=== PATIENT | male | born 1945 | race Caucasian/White ===

== ENCOUNTER 2017-09-21 08:36 | Day surgery (SDC) | payer MEDICARE, OTHER, SELFPAY ==
[2017-09-21 09:24] VITALS: BP 143/74; PULSE 54; RESP 16; TEMP 36; O2SAT 99; BMI 33.7
[2017-09-21] MEDS: SODIUM CHLORIDE 0.9% 1,000 ML 70 ML IV (09:30)
--- NOTE | 2017-09-21 10:32 | P.HP_ITS ---
History of Present Illness Date Patient Seen: 09/21/17 Time Patient Seen: 10:30 Chief complaint: colonoscopy w/biopsy [id number] Narrative: The patient is a 72-year-old male who is here for colon cancer screening. The patient is at average risk. He had a colonoscopy performed 10 years ago which was unrevealing. He currently has no alarm symptoms or active GI symptoms. There is no family history of colon cancer Patient History Family & Social History Social History: household members spouse Meds Home Medications Medication Instructions Recorded Confirmed Type aspirin 81 mg DAILY 09/21/17 09/21/17 History glipizide 2.5 mg DAILY 09/21/17 09/21/17 History hydrochlorothiazide 25 mg DAILY 09/21/17 09/21/17 History hydrocodone-acetaminophen [[place]] 1 tab PO Q4HP PRN 09/21/17 09/21/17 History lisinopril 20 mg DAILY 09/21/17 09/21/17 History metformin 1,000 mg BID 09/21/17 09/21/17 History metoprolol succinate 50 mg DAILY 09/21/17 09/21/17 History pantoprazole 40 mg DAILY 09/21/17 09/21/17 History simvastatin 20 mg DAILY 09/21/17 09/21/17 History Allergies Allergy/AdvReac Type Severity Reaction Status Date / Time Penicillins [PENICILLINS] Allergy Severe Swelling Verified 09/21/17 09:15 of the Eye atorvastatin [From Lipitor] AdvReac Mild Nausea Verified 09/21/17 09:16 Review of Systems Review of Systems All systems reviewed & are unremarkable except as noted in HPI and below Exam Vital Signs (past 8 hours): - 09/21/17 09:24 Temperature 96.8 F L Pulse Rate 54 L Respiratory Rate 16 Blood Pressure 143/74 H Pulse Oximetry 99 Oxygen Delivery Method Room Air Narrative Exam Narrative: General: Patient is obese, not in apparent distress Cardiovascular: Regular rate and rhythm, no murmurs, rubs, or gallops; no evidence of edema; no palpable abdominal aortic aneurysm Gastrointestinal: Normoactive bowel sounds, soft, nontender, nondistended, no rebound tenderness, no hepatosplenomegaly, no evidence of hernia Assessment & Plan Plan: Assessment/Plan Narrative: 72-year-old male who is here for colon cancer screening. He has no active GI issues at present. Prior colonoscopy 10 years ago which was unrevealing Regarding the procedure(s), the risks and potential complications, benefits, and alternatives (including not doing the procedure) were discussed with the patient. The risks include but are not limited to bleeding, infection, perforation which may require surgical intervention, missed lesions, and adverse reactions to sedative medicines. After a question and answer period, the patient agreed to proceed with the procedure(s).
--- NOTE | 2017-09-21 10:32 | PM.OP.ENDO ---
Operative Date/Time/Diagnoses Date of procedure: 09/21/17 Time of procedure: 10:32 Procedure Notes Procedure in detail: Surgeon: Garett Lewis MD Procedure: Colonoscopy; incomplete due to poor prep Preoperative diagnosis: Colon cancer screening Postoperative diagnosis: Aborted colonoscopy due to poor prep Medications: Conscious sedation using 4 mg IV of Midazolam and 100 mcg IV of Fentanyl Preanesthesia Assessment An H and P was performed/updated and the Px?s ASA class is 2. The procedure was discussed in detail with the patient. The potential risks and complications including infection, bleeding, missed lesions, perforation, need for surgery in case of perforation, prolonged hospital stay, and were explained. A brief question and answer period was allotted and once all questions were answered, informed consent was obtained. The patient was brought back to the procedure room and placed on standard monitoring. The patient?s vital signs were monitored continuously throughout the entire procedure. Prior to starting, a timeout was performed to confirm the patient?s identity, allergies, medications, and procedure. Procedure in detail The patient was placed in left lateral decubitus position and once adequate sedation was obtained a CAESAR was performed. The digital rectal exam did not reveal any palpable lesions. The tip of the colonoscope was placed in the anal canal. In the rectum there was a large amount of liquid stool which precluded adequate evaluation of the mucosa. The scope was advanced all the way to the sigmoid colon and the procedure was then aborted due to the large amount of liquid stool which could not be washed. The patient tolerated the procedure well and will be brought back to the recovery area to be discharged once criteria are met. The prep was poor and inadequate. The total procedure time from initial sedation was 7 min. Complications There were no complications and estimated blood loss was zero. Recommendations: Reschedule for colonoscopy; patient will likely need antiemetics or modified prep Resume previous diet Continue outPx medications An emergency contact number was given to the patient for any complications related to the procedure
--- NOTE | 2017-09-21 10:34 | P.DS_ITS ---
History of Present Illness Chief complaint: colonoscopy w/biopsy [id number] Narrative: The patient is a 72-year-old male who is here for colon cancer screening. The patient is at average risk. He had a colonoscopy performed 10 years ago which was unrevealing. He currently has no alarm symptoms or active GI symptoms. There is no family history of colon cancer Discharge Providers Primary care physician: Espinoza Gomez MD Discharge provider: Garett Lewis MD Exam Vital Signs (past 8 hours): - 09/21/17 09:24 Temperature 96.8 F L Pulse Rate 54 L Respiratory Rate 16 Blood Pressure 143/74 H Pulse Oximetry 99 Oxygen Delivery Method Room Air Narrative Exam Narrative: General: Patient is obese, not in apparent distress Cardiovascular: Regular rate and rhythm, no murmurs, rubs, or gallops; no evidence of edema; no palpable abdominal aortic aneurysm Gastrointestinal: Normoactive bowel sounds, soft, nontender, nondistended, no rebound tenderness, no hepatosplenomegaly, no evidence of hernia Discharge Plan Discharge Plan Patient Disposition: Home, Self-Care Discharge comment: Remove IV prior to discharge Discharge to home once criteria are met (positive flatus, stable vital signs, no abdominal pain, tolerating p.o.) Discharge Med Rec/Prescriptions Prescriptions: Continue aspirin 81 mg 81 mg DAILY RF: 0 glipizide 2.5 mg 2.5 mg DAILY RF: 0 hydrochlorothiazide 25 mg 25 mg DAILY RF: 0 lisinopril 20 mg 20 mg DAILY RF: 0 metformin 1,000 mg 1,000 mg BID RF: 0 metoprolol succinate 50 mg 50 mg DAILY RF: 0 pantoprazole 40 mg 40 mg DAILY RF: 0 simvastatin 20 mg 20 mg DAILY RF: 0 hydrocodone-acetaminophen [[place]] 5 MG/325 MG tablet 1 tab PO Q4HP PRN (Reason: Pain (Scale Score 1-3)) RF: 0 Discharge Orders: Discharge (Order); Ordered 09/21/17 Ordered By: Garett Lewis Provider Discharge Instructions Diet: Diet as Tolerated Visit Report/Discharge Packet Stand Alone Forms: Colonoscopy Result, Surgery Discharge Discharge Data Primary Care Provider: Espinoza Gomez Attending Provider: Garett Lewis
[2017-09-21] MEDS: MIDAZOLAM 5 MG/5 ML VIAL IV (10:48)
[2017-09-21 10:49] VITALS: BP 121/74; PULSE 48; RESP 16; TEMP 36.8; O2SAT 93
[2017-09-21] MEDS: fentaNYL 250 MCG/5 ML INJ IV (10:49)
[2017-09-21 10:54] VITALS: BP 116/62; PULSE 50; RESP 16; O2SAT 95
[2017-09-21 10:59] VITALS: BP 121/77; PULSE 50; RESP 18; O2SAT 95
[2017-09-21 11:05] VITALS: BP 124/74; PULSE 49; RESP 14; TEMP 36.6; O2SAT 95
[2017-09-21 11:19] VITALS: BP 117/70; PULSE 48; RESP 18; TEMP 36.7; O2SAT 96
== END 2017-09-21 11:27 | disposition home or self-care (01) ==
PROVIDERS: PCP Family Medicine; Visit Provider Internal Medicine Gastroenterology
PROC: 0DJD8ZZ Inspection of Lower Intestinal Tract, Via Natural or Artificial Opening Endoscopic (ICD-10-PCS; CPT 45378; principal; 2017-09-21 10:30)
DX: Z12.11 Encounter for screening for malignant neoplasm of colon (principal); Z53.09 Procedure and treatment not carried out because of other contraindication
CPT/HCPCS: G0104; J2250; J3010

== ENCOUNTER 2017-10-05 10:14 | Day surgery (SDC) | payer MEDICARE, OTHER, SELFPAY ==
--- NOTE | 2017-10-05 | PATH_ITS ---
[facility] Accession Number: [id number] . 01 Material submitted: . RECTAL POLYP . 02 Diagnosis: Rectal Polyp: Hyperplastic polyp. MRV/10/06/2017 . 02 Electronically signed: . Daniel Palafox MD, PhD, Pathologist NPI- [id number] . 01 Gross description: . Received one formalin-filled container labeled with the patient's name and labeled rectal polyp. The specimen consists of a 0.3 cm portion of tissue, entirely submitted in one cassette. (DC:[id number]) /FRR . 02 Pathologist provided ICD-10: K62.1 . 02 CPT . 856292 Performed at: 01 [facility] [address] [place] [address], [place], [place] [id number] MD Ryan Auguste MD Phone: [phone] Performed at: [address] [facility] [address] [place], [place] [id number] MD Max Ross MD Phone: [phone]
[2017-10-05 10:28] VITALS: BP 146/86; PULSE 75; RESP 16; TEMP 36.4; O2SAT 100; BMI 33.7
[2017-10-05] MEDS: SODIUM CHLORIDE 0.9% 1,000 ML 42 ML IV (10:36)
--- NOTE | 2017-10-05 11:04 | PM.HP.1 ---
History of Present Illness Date Patient Seen: 10/05/17 Time Patient Seen: 11:05 Chief complaint: colonoscopy w/biopsy [id number] Narrative: Screening - NOS Patient History Medical History Diabetes mellitus (Acute) GE reflux (Acute) Hypercholesterolemia (Acute) Hypertension (Acute) Family & Social History Social History: household members spouse Meds Home Medications Medication Instructions Recorded Confirmed Type aspirin 81 mg DAILY 09/21/17 09/21/17 History glipizide 2.5 mg DAILY 09/21/17 09/21/17 History hydrochlorothiazide 25 mg DAILY 09/21/17 09/21/17 History hydrocodone-acetaminophen [[place]] 1 tab PO Q4HP PRN 09/21/17 09/21/17 History lisinopril 20 mg DAILY 09/21/17 09/21/17 History metformin 1,000 mg BID 09/21/17 10/05/17 History metoprolol succinate 50 mg DAILY 09/21/17 09/21/17 History pantoprazole 40 mg DAILY 09/21/17 09/21/17 History simvastatin 20 mg DAILY 09/21/17 09/21/17 History Allergies Allergy/AdvReac Type Severity Reaction Status Date / Time Penicillins [PENICILLINS] Allergy Severe Swelling Verified 10/05/17 10:26 of the Eye atorvastatin [From Lipitor] AdvReac Mild Nausea Verified 10/05/17 10:26 Exam Vital Signs (past 8 hours): - 10/05/17 10:28 Temperature 97.6 F Pulse Rate 75 Respiratory Rate 16 Blood Pressure 146/86 H Pulse Oximetry 100 Oxygen Delivery Method Room Air Narrative Exam Narrative: Oropharynx free of lesions Chest clear to auscultation percussion Cardiac exam reveals no S3 or murmur Assessment & Plan Plan: Assessment/Plan Narrative: Plan is for colonoscopy for screening purposes.
[2017-10-05] MEDS: MIDAZOLAM 5 MG/5 ML VIAL IV (11:36)
[2017-10-05] MEDS: fentaNYL 250 MCG/5 ML INJ IV (11:36)
--- NOTE | 2017-10-05 11:44 | PM.OP.ENDO ---
Operative Date/Time/Diagnoses Date of procedure: 10/05/17 Time of procedure: 11:44 Pre-op diagnosis: See indication and findings Post-op diagnosis: same Procedure & Clinicians Study performed: Colonoscopy Same procedure as scheduled: Yes Indications: Screening Surgeon: Almaz Garcia Procedure Notes Procedure in detail: After informed consent was obtained the patient was placed in left lateral decubitus position. Video colonoscope was introduced through rectum and slowly advanced to the cecum. Colon was excessively long and tortuous but eventually the cecum was reached. The preparation was fair before extensive washing but after washing was actually quite good. On slow withdrawal mucosa was carefully examined. The scope was removed. The patient tolerated the procedure well. Blood loss none Complications none Sedation Fentanyl 100 mcg Versed 9 mg IV titration Total sedation time 38 min Findings 1. Extensive sigmoid and left-sided diverticulosis. 2. 5 mm polyp in the distal rectum cold biopsied with Jumbo biopsy forceps and removed completely. 3. Otherwise negative colonoscopy to cecum We will send the biopsy results to the patient. Pending the biopsy results will need follow up in 5 or 10 years.
[2017-10-05 11:48] VITALS: BP 128/81; PULSE 67; RESP 11; TEMP 36.6; O2SAT 96
[2017-10-05 11:55] VITALS: BP 157/88; PULSE 71; RESP 15; O2SAT 95
--- NOTE | 2017-10-05 12:31 | SUR.PHASEII ---
Abd distended, soft. Denied flatus. Denied pain.
== END 2017-10-05 12:30 | disposition home or self-care (01) ==
PROVIDERS: Internal Medicine Gastroenterology; PCP Family Medicine; Visit Provider Internal Medicine Gastroenterology
PROC: 0DJD8ZZ Inspection of Lower Intestinal Tract, Via Natural or Artificial Opening Endoscopic (ICD-10-PCS; CPT 45378; principal; 2017-10-05 14:30)
DX: Z12.11 Encounter for screening for malignant neoplasm of colon (principal); K57.30 Diverticulosis of large intestine without perforation or abscess without bleeding; E11.9 Type 2 diabetes mellitus without complications; K21.9 Gastro-esophageal reflux disease without esophagitis; E78.00 Pure hypercholesterolemia, unspecified; I10 Essential (primary) hypertension; Z79.84 Long term (current) use of oral hypoglycemic drugs; K62.1 Rectal polyp
CPT/HCPCS: 45380; J2250; J3010

== ENCOUNTER → 2018-04-17 15:17 | Outpatient (CLI) | payer MEDICARE, OTHER, SELFPAY ==
--- NOTE | 2018-04-17 15:20 | DI.MRI.S_ITS ---
PROCEDURE: MR LUMBAR SPINE WO CON INDICATIONS: LUMBAR SPINE PAIN TECHNIQUE: Noncontrast sagittal T1 spin echo and T2 fast echo, sagittal STIR, axial T1 and T2 fast spin echo through the lumbar spine. In cases with scoliosis, additional coronal T2 fast spin echo may be performed. COMPARISON: [facility], MR, L-SPINE WITHOUT CONTRAST, 06/18/2013, 19:35. FINDINGS: Image quality: Excellent. Alignment and Curvature: There is normal bony alignment. Bone Marrow: Marrow is of normal overall signal. No acute vertebral body compression fractures. Decrease intervertebral disc space and degenerative endplate changes are noted throughout lumbar spine. Spinal Cord: Conus medullaris terminates at the T12 level. Visualized cord demonstrates normal signal and size. Paraspinous Soft Tissues: No paravertebral masses. 4.8 x 5.1 cm possible cyst is seen in the upper pole of right kidney. Additional bilateral renal cysts are also likely present. T12-L1: There is broad-based disc bulge and bilateral facet arthrosis with mild to moderate central canal stenosis and mild bilateral neuroforamina narrowing. L1-L2: There is broad-based disc bulge and bilateral facet arthrosis causing mild central canal stenosis and bilateral neuroforaminal narrowing. L2-L3: There is broad-based disc bulge and bilateral facet arthrosis causing moderate central canal stenosis and left worse than right bilateral neuroforaminal narrowing. Bulging disc is seen contacting exiting left L2 nerve root. L3-L4: There is broad-based disc bulge and bilateral facet arthrosis with hypertrophy of ligamentum flavum. Moderate central canal stenosis and left worse than right bilateral neuroforaminal narrowing is seen. Bulging disc is seen contacting bilateral L3 and L4 nerve roots. L4-L5: Broad-based disc bulge and bilateral facet arthrosis is seen with moderate central canal stenosis and [id number] bilateral neuroforaminal narrowing. Bulging disc is seen contacting bilateral L4 and L5 no roots. L5-S1: Diffuse disc bulge and bilateral facet arthrosis is seen with mild central canal stenosis and mild bilateral neuroforaminal narrowing. IMPRESSION: 1. Degenerative disc bulge and bilateral facet arthrosis throughout lumbar spine causing mild to moderate central canal stenosis and bilateral neuroforaminal narrowing more prominent at L3-4 and L4-5 levels as described above. 2. No marrow edema. No compression fracture or spondylolisthesis. 3. Suggestion of bilateral renal cysts. No hydronephrosis. Dictated by: Zen Wright M.D. on 04/17/2018 at 16:04 Approved by: Zen Wright M.D. on 04/17/2018 at 16:08
== END ==
PROVIDERS: PCP Family Medicine; Visit Provider Orthopaedic Surgery Orthopaedic Surgery of the Spine
DX: M54.5 Low back pain (principal); M51.36 Other intervertebral disc degeneration, lumbar region; M51.37 Other intervertebral disc degeneration, lumbosacral region; M48.061 Spinal stenosis, lumbar region without neurogenic claudication; M48.07 Spinal stenosis, lumbosacral region; M47.816 Spondylosis without myelopathy or radiculopathy, lumbar region; M47.817 Spondylosis without myelopathy or radiculopathy, lumbosacral region
CPT/HCPCS: 72148

== ENCOUNTER → 2018-06-13 10:04 | Outpatient (CLI) | payer MEDICARE, OTHER, SELFPAY ==
[2018-06-13 12:22] LABS: Hematocrit 44.7 % (41-53); Hemoglobin 14.5 g/dL (13.5-17.5); Mean Corpuscular HGB Conc 32.5 % (30-36); Mean Corpuscular Hemoglobin 29.2 PG (26-34); Mean Corpuscular Volume 89.9 fL (80-100); Platelet Count 221 X10^3/uL (150-400); Red Blood Cell Count 4.98 X10^6/uL (4.5-5.9); Red Cell Distribution Width 14.4 % (11.6-14.8); White Blood Cell Count 8.7 X10^3/uL (4.5-11.0)
[2018-06-13 12:23] LABS: Hemoglobin A1C% w Est Avg Glu 6.9 % (4.0-6.0)
[2018-06-13 13:11] LABS: BUN Creatinine Ratio 16.2 (6-22); Blood Urea Nitrogen 21 mg/dL (9-20); Calcium 9.4 mg/dL (8.4-10.2); Carbon Dioxide 29 mmol/L (22-32); Chloride 99 mmol/L (98-107); Estimated Glomerular Filt Rate 54.6 mL/min (>60); Glucose 99 mg/dL (80-110); HEMOLYSIS < 15 (0-50); Potassium 4.2 mmol/L (3.4-5.1); Sodium 139 mmol/L (137-145)
== END ==
PROVIDERS: PCP Family Medicine; Visit Provider Orthopaedic Surgery Orthopaedic Surgery of the Spine
DX: R73.9 Hyperglycemia, unspecified (principal); Z01.818 Encounter for other preprocedural examination
CPT/HCPCS: 36415; 80048; 83036; 85027; 93005

== ENCOUNTER 2018-09-20 05:23 | Inpatient (IN) | payer MEDICARE, OTHER, SELFPAY ==
[2018-07-18 09:50] VITALS: BMI 35.6
[2018-09-20] VITALS (16 sets, daily range): BP systolic 101–154; BP diastolic 66–99; PULSE 48–449; RESP 8–98; TEMP 36.1–37.1; O2SAT 11–99; BMI 35.6
--- NOTE | 2018-09-20 | DI.RAD.S_ITS ---
PROCEDURE: XR LUMBAR SPINE 2-3V INDICATIONS: TLIF L4-5 L5-S1 TECHNIQUE: 2 views of the lumbar spine were acquired. COMPARISON: None. FINDINGS: Bones: 5 [id number] vertebrae are present. There is normal bony alignment. No vertebral body compression fractures. No suspicious bony lesions. There has been fusion by transverse pedicle screws and vertical fixation rods between L4-S1, with interbody disc cage prosthesis devices at the intervening 2 disc levels. Soft tissues: Overlying bowel gas pattern is normal. No suspicious soft tissue calcifications. IMPRESSION: Normal alignment established by posterior fusion and interbody disc cage prosthesis devices as discussed. Dictated by: Aleks Stockton M.D. on 09/20/2018 at 16:32 Approved by: Aleks tSockton M.D. on 09/20/2018 at 16:33
[2018-09-20] MEDS: LACTATED RINGERS 1,000 ML 42 ML IV ×2 (06:45→11:07)
--- NOTE | 2018-09-20 07:40 | PM.PREOP ---
Pre-operative Note Interval Note History & Physical reviewed/Exam performed by Physician: Yes Changes to H&P: No
[2018-09-20] MEDS: CLINDAMYCIN 900 MG/50 ML PIGGYBACK 50 MG IV ×2 (07:49→16:41)
--- NOTE | 2018-09-20 08:37 | SUR.OPER ---
Prone on spine table, head in foam head support, padded chest and pelvic supports, gel pad at knees, lower legs supported by pillows; nipples, genitalia and toes free of pressure, arms secured on foam padded arm boards at <90 degrees abduction. Tape over blanket at thigh secured to table.
[2018-09-20] MEDS: BUPIVACAINE LIPOSOME 266 MG/20 ML VIAL INJ (08:48)
[2018-09-20] MEDS: BUPIVACAINE 0.25% W/ EPI 30 ML VIAL INJ (08:49)
--- NOTE | 2018-09-20 11:43 | P.OP_ITS ---
Operative Date/Time/Diagnoses Date of procedure: 09/20/18 Time of procedure: 08:10 Pre-op diagnosis: 1. L4-5, L5-S1 spinal stenosis 2. L4-5, L5-S1 spondylosis with radiculopathy 3. Hx of Lumbar microdiscectomy with epidural scarring Procedure & Clinicians Procedure: 1. L4-5, L5-S1 Postero-lateral and posterior interbody fusion 2. L4-5, L5-S1 interbody cage placement. 3. L4-5, L5-S1 decompressive laminectomy with bilateral facetecomies 4. L4-5, L5-S1 Posterior segmental instrumentation 5. [place] of bone marrow from iliac crest 6. Utilization of microsurgical technique and operating microscope Same procedure as scheduled: Yes Indications: Patient has been having chronic back pain and worsening lumbar radiculopathy. Patient failed multiple conservative management with worsening pain weakness and numbness in her lower extremity. Patient has been having difficulty performing activity of daily living. After discussing risks benefits of treatment options, patient elected proceed with surgery. Surgeon: Teresa Hayes Outside Machinist: Jessica Saeed Click Yes if Unassisted: No Anesthesia Type: General Operative Notes Closure Type: primary Specimen(s): none sent Prosthetic devices, grafts, tissues, transplants, or devices: Globus revolve scrwes, Rise cages Applied: catheter Estimated Blood Loss (mL): 100 Blood products transfused: none Procedure in detail: Patient was seen in the preoperative area. Risks and benefits of the surgery was discussed with the patient. Informed consent was obtained from the patient and placed in the chart. Surgical site was marked. Patient was taken to the operative room. General anesthesia was administered. Prophylactic antibiotic was given to the patient less than 30 min before the incision was made. Patient was placed into a prone position on the Micah table. Patient's back was then prepped and draped in the sterile fashion. Time- out was performed at this time. Using AP and lateral C-arm imaging the interval between L4-S1 was identified and marked on patient's back. A 2 inch incision 2 in from midline was made on the right side first. The fascia was incised in line with skin incision. Globus MARS retractors was placed inside the incision and docked onto the L4 and L5 lamina. Using microsurgical technique and operating microscope, a L4 and L5 laminectomy and L4-5 L5-S1 facetectomy was performed using a Kerrison rongeur. During the process of decompression more than 75% of bilateral L4-5 L5-S1 facets were removed in order to decompress the spinal canal and the lateral recess. The L4-5 L5-S1 level was grossly unstable after the decompression was completed and requiring the fusion procedure. The disc space at L4-5, L5-S1 was identified. And a total diskectomy was performed at L4-5, L5-S1 level. The endplates were decorticated using a rasp and shaver. The total diskectomy and decortication was performed at L4-5, L5-S1 level in order to to accomplish a L4- 5, L5-S1 fusion. The local bone from the laminectomy and facetectomy was saved for local bone grafting. After the total diskectomy and decortication was completed, Bio4 bone graft material was combined with local bone that was harvested earlier. At this time, a separate skin is incision was made over the iliac crest. A Jamshidi needle was inserted into the iliac crest through a separate skin incision. 5 cc of bone marrow aspiration was obtained through the separate skin incision using a Jamshidi needle from the iliac crest. The bone marrow aspiration was combined with local bone and the Bio4 bone grafting material. The bone grafting material was placed into the L4-5, L5-S1 interbody space along with two cages, one expandable cage at each level. The cages were expanded to their maximum height using the torque limiting screwdriver. At this time a mirror image incision was made on the left side. The fascia was incised in line with the skin incision. Globus MARS retractor was inserted and docked onto the L4-5, L5-S1 posterolateral gutter. Using the power drill, posterior-lateral decortication was performed at L4-5, L5-S1 level until bleeding cortical bone was identified. The remaining bone grafting material was placed into the L4-5 L5-S1 posterior lateral gutter he order to accomplish posterolateral fusion at the L4-5 L5-S1 levels. Using the double C-arm technique, pedicle screws were placed into the L4, L5, S1 pedicles bilaterally. This was done by placing the Jamshidi needle into the pedicles, then placing the guidewires over the Jamshidi needle, and finally placing the cannulated screws over the guidewires bilaterally. After the pedicle screws were placed, 2 titanium rods was locked into the heads of the pedicle screws using locking caps and torque limiting screwdriver. Total 6 pedicles screws were placed. After all the hardware was placed, and confirmed with AP and lateral C-arm imaging, the wound was then irrigated with sterile normal saline and packed with Ray-Kyler gauze for 3 min to accomplish hemostasis. After the gauze was removed the deep fascia was closed with #1 Vicryl suture. The subcutaneous layer was closed with 2-0 Vicryl. The skin was closed with skin angella. Patient tolerated the procedure well. There were no complications. Complications: none Condition: stable Disposition: PACU Plan for aftercare: Admit to inpatient hospital
[2018-09-20] MEDS: fentaNYL 100 MCG/2 ML INJ 50 MCG IV ×2 (11:45→11:53)
[2018-09-20] MEDS: HYDROMORPHONE 2 MG INJ 0.5 MG IV ×4 (11:45→12:13)
[2018-09-20] MEDS: hydrOXYzine 50 MG/ML INJ IM (11:46)
[2018-09-20] MEDS: LORazepam 2 MG/ML INJ 0.5 MG IV (12:38)
--- NOTE | 2018-09-20 14:06 | CM.DANOTE ---
DCP: Case received, EMR reviewed and met with patient. Introduced self and role. Baseline health history obtained from spouse, Maeve. DCP template assessment completed with information currently available. Patient is a 73 year old male who admitted early this morning to the care of the orthopedic team. PCP: Dr. Gomez. Payer: confirmed: Medicare/[employer]. Patient came to the hospital for a surgical procedure. He had L4-5, L5-S1 Laminectomy. Patient has had surgery planned since July, according to patient's spouse, but had to put off his surgery since Maeve's mother . was speaking for patient, for he is sleeping, and wears a CPAP machine. Thania Carpio, nurse, is also obtaining information from . Patient has had history of chronic back pain secondary to osteoarthritis of his spine. According to Maeve, she stated that he is very active, he just mowed the lawn a couple of days ago. He uses no DME supplies, but stated, she has a walker at home that he can use, which belongs to her, since she has had history of back surgery. mentioned that they have a daughter that lives in [place], [place], and a son, which will be coming up. She is feeling confident about patient going home. He is set up at [facility] when he is medically cleared by orthopedist. understands that patient will be working with physical therapy team, and will see how he mobilizes. P: DCP to continue to follow closely, and will be available if any resources are needed for patient, as well as . Sona Reynaga RN/Adult Basic Education Manager
[2018-09-20] MEDS: SODIUM CHLORIDE 0.9% 1,000 ML 100 ML IV (14:28)
[2018-09-20 14:44] LABS: Bacteria Urine None Seen; RBC Urine None Seen (0-5/HPF)
[2018-09-20 14:46] LABS: Appearance Urine UA CLOUDY; Bilirubin Urine UA NEGATIVE (NEGATIVE); Color Urine UA YELLOW; Glucose Urine UA NEGATIVE (Negative); Ketones Urine UA NEGATIVE (NEGATIVE); Leukocyte Esterase Urine UA NEGATIVE (NEGATIVE); Nitrite Urine UA NEGATIVE (Negative); Occult Blood Urine UA 1+ (Negative); Protein Urine UA NEGATIVE (Negative); Specific Gravity Urine UA 1.025 (1.000-1.035); Urobilinogen Urine UA 0.2 E.U./dL (0.2)
[2018-09-20 14:58] LABS: Amorphous Sediment Urine 3+; Culture Indicated Urine Cult Not Indicated; Uric Acid Crystals Urine Few; WBC Urine 1-5/HPF (0-5/HPF)
[2018-09-20] MEDS: ACETAMINOPHEN 325 MG TABLET 650 MG PO (16:36)
[2018-09-20] MEDS: OXYCODONE IR 5 MG TABLET 10 MG PO ×2 (16:38→19:49)
[2018-09-20] MEDS: HYDROMORPHONE 1 MG INJ 0.5 MG IV (16:56)
--- NOTE | 2018-09-20 17:17 | PC.NURSE ---
Pt c/O back pain 6-09/20, asking for medications, medicated with oxycodone 10mg PO and dilaudid 0.5mg IVP. Able to eat dinner and reports comfortable now. [place] drsg to lower back CDI, able to ankle wave and wiggle toes. CMS+, PP+, bilat feet SCD's on, RFA NS @ 100, and first ABO infusing. Ramirez patent and draining clear yellow urine. Pt has own CPAP for sleep without O2 bleed in. I.S. education and currently up to 1999. Bed alarm on.
--- NOTE | 2018-09-20 19:04 | PT.IIE ---
Current Diagnoses Spondylolisthesis, lumbosacral region (09/20/18) Other spondylosis with radiculopathy, lumbar region (09/20/18) Spinal stenosis, lumbar region without neurogenic claudication (09/20/18) Surgery Performed Operation Date: 07/28/18 07:45 <No data on this case meets the specified criteria> Operation Date: 09/20/18 07:45 Actual Procedures p L4-5, L5-S1 TLIF w/Posterior Instru. - Teresa Hayes MD Surgical History (Last Updated 07/18/18 @ 10:16 by Carline Blum RN) H/O: vasectomy (Acute ~1977) History of bunionectomy of right great toe (Acute ~2012) History of temporal artery biopsy (Acute) Hx of foot surgery (Acute) Hx of lithotripsy (Acute ~2016) Hx of microdiscectomy (Acute ~2013) Hx of tonsillectomy (Acute) Medical History (Last Updated 09/20/18 @ 14:04 by Marilee Sargent RN) Anxiety (Acute) Back pain (Acute) Benign prostatic hyperplasia (Acute) Trey's deformity of left heel (Acute ~2011) Hearing impaired (Acute) Kidney stones (Acute) Sinus congestion (Acute) Sleep apnea (Acute) Diabetes mellitus (Acute) GE reflux (Acute) Hypercholesterolemia (Acute) Hypertension (Acute) Physical Therapy Inpatient Evaluation/Re-Eval M1 PT/OT-IP Prior Functional Status Start: 09/20/18 18:44 Freq: NEEDED Status: Active Protocol: Document 09/20/18 18:44 [facility] (Rec: 09/20/18 19:04 [facility] [id number]) Medical Review Prior Functional Status Medical History Reviewed Yes Diet/Fluid Consistency Regular Communication WNL Mobility and Gait Pt amb without AD but reports requiring frequent rest breaks Activities of Daily Living and IADL's Indep and helps with home cleaning Prior Functional Level (Other details) is able to assist with recovery Social History Household Members spouse Living Arrangements House Number of Floors (Floors) One Floor Number of Stairs To Enter/Railing? 1 BETHANY Home Environment High Toilet Walk in Shower Home Equipment Front Wheel Walker Raised Toilet Seat w/Armrests Face Man Grab Bars In Shower Additional Social History Comment Pt unsure if walker will go high enough. to bring tomorrow M2 PT-IP Current Condition Start: 09/20/18 18:44 Freq: NEEDED Status: Active Protocol: Document 09/20/18 18:44 [facility] (Rec: 09/20/18 19:04 [facility] [id number]) Physical Therapy Current Condition Current Condition Evaluation Date 09/20/18 Treatment Diagnosis L4-5, L5-S1 TLIF Onset Date 09/20/18 Precautions Lumbar Precautions Log Roll No Twisting Limit Bending Lifting Restriction of 10 lbs Gait Belt above Incisional Area Weight Bearing Status Weight Bearing Status Weight Bear as Tolerated M3 PT-IP Subjective Start: 09/20/18 18:44 Freq: NEEDED Status: Active Protocol: Document 09/20/18 18:44 [facility] (Rec: 09/20/18 19:04 [facility] [email or web address]) Subjective Physical Therapy Visit Type Type Initial Evaluation Visit Start Time 17:45 Visit Stop Time 16:35 Total Visit Minutes 50 Number of SHIPPING MANAGER Visits 0 Therapy Pain Assessment Pain When Pain Assessed During Mobility Pain Present Pain Present Pain Reported Location Back Intensity 3 Scale Used Numeric (1 - 10) Pain Management Techniques Apply Cold Re-positioning Timing of Activity with Medications M4 PT-IP Mobility and Gait Start: 09/20/18 18:44 Freq: NEEDED Status: Active Protocol: Document 09/20/18 18:44 [facility] (Rec: 09/20/18 19:04 [facility] [id number]) PT-Bed Mobility Assessment Rolling Type of Rolling Log Rolling Roll to Right Level of Assist Moderate Assistance Supine to Sit Supine to Sit Moderate Assistance Bedrails Scooting Scooting to Edge of Bed Contact Guard Assistance PT-Transfer Assessment Sit to and From Stand Sit to and from Stand Minimal Assistance Use of Upper Extremities Equipment Transfer Assistive Device Gait Belt Front Wheeled Walker Orthotic/Prosthetic Devices or Brace: No Comments Mobility Comments Pt stood from bed min A to walk to chair and practiced 1 sit to stand from chair with min A and cueing. Gait Assessment Gait Gait Assistance Required: Contact Guard Assist Distance (Feet) 15 Assistive Devices Assistive Device Gait Belt Front Wheeled Walker Gait Deviations General Gait Pattern Antalgic Decreased Stride Length Decreased Feet Clearance Factors Limiting Gait Function Factors Limiting Gait Function Decreased Strength Limited Range of Motion Pain Poor Balance Comments Gait Comments Pt able to amb around bed with very slow gait and small steps and was not stepping though with either LE. PT-Balance Assessment Sitting Balance and Reactions Static Sitting Balance Ability Fair Dynamic Sitting Balance Ability Poor Standing Balance and Reactions Static Standing Balance Ability Fair Dynamic Standing Balance Ability Poor Device Used FWW M5 PT-IP Objective Assessments Start: 09/20/18 18:44 Freq: NEEDED Status: Active Protocol: Document 09/20/18 18:44 [facility] (Rec: 09/20/18 19:04 [facility] [id number]) Orientation Orientation/Cognition Level of Alertness Alert Strength Lower Extremity Strength Assessment Bilaterally Impaired M6 PT-IP Treatment Start: 09/20/18 18:44 Freq: NEEDED Status: Active Protocol: Document 09/20/18 18:44 [facility] (Rec: 09/20/18 19:04 [facility] [id number]) Physical Therapy Treatment Education Education Provided Precautions Post-Op Packet Safety M7 PT-IP Assessment and Plan Start: 09/20/18 18:44 Freq: NEEDED Status: Active Protocol: Document 09/20/18 18:44 [facility] (Rec: 09/20/18 19:04 [facility] [id number]) PT Summary Assessment and Plan Potential Rehabilitation Potential Good Status of Condition at Evaluation Evolving Summary Impairments Pain ROM Strength Balance Bed Mobility Transfers Gait Activity Tolerance Assessment Summary Pt presents s/p L4-5, L5-S1 TLIF with significant pain that is limiting him, but pt is able to mobilize with min to mod A. He is motivated in his recovery and reports that will be able to assist him throughout his recovery. He will benefit from skilled PT to cont to address him mobility deficits in order to make his safe for returning home. Goals Bed Mobility Goal Standby Assistance Transfer Goal Standby Assistance Gait Goal Standby Assistance Gait Distance 150ft Other Goals up/down 1 step without rail SBA Days to Meet Goals 4 Frequency of Treatment Frequency Of Treatment Twice a Day Treatment Plan Physical Therapy Treatment Plan Bed Mobility Training Transfer Training Gait Training Therapeutic Exercise Balance Retraining Post Op Education Neuromuscular Re-ed Recommendations To Nursing Amount of Assist Needed 1 Person Assist Discharge Recommendations PT Discharge Recommendations Home with Assistance Equipment Needed for Home Before possibly walker if 's Discharge walker is not tall enough
[2018-09-20] MEDS: SENNOSIDES 8.6 MG TABLET 17.2 MG PO (22:44)
[2018-09-20] MEDS: DOCUSATE 100 MG CAPSULE PO (22:44)
[2018-09-20] MEDS: METFORMIN HCL 500 MG TABLET 1000 MG PO (22:44)
[2018-09-20] MEDS: SIMVASTATIN 20 MG TABLET PO (22:46)
[2018-09-20] MEDS: TAMSULOSIN 0.4 MG CAPSULE PO (22:46)
[2018-09-21] VITALS (7 sets, daily range): BP systolic 120–135; BP diastolic 58–80; PULSE 63–78; RESP 16–20; TEMP 36.5–37.3; O2SAT 95–99
[2018-09-21] MEDS: OXYCODONE IR 5 MG TABLET 10 MG PO ×3 (00:01→06:12)
[2018-09-21] MEDS: CLINDAMYCIN 900 MG/50 ML PIGGYBACK 50 MG IV (00:03)
[2018-09-21] MEDS: SODIUM CHLORIDE 0.9% 1,000 ML 100 ML IV (03:00)
[2018-09-21] MEDS: HYDROMORPHONE 1 MG INJ 0.5 MG IV ×2 (03:43→06:52)
[2018-09-21] MEDS: GABAPENTIN 300 MG CAPSULE PO ×2 (06:14→12:58)
[2018-09-21 06:34] LABS: Hematocrit 39.8 % (41-53); Hemoglobin 13.4 g/dL (13.5-17.5)
--- NOTE | 2018-09-21 06:54 | PC.NURSE ---
Addendum entered by Kaitlin Torres R.N. 09/21/18 07:29: Hand-off report given to Marilee PALACIO Original Note: Assumed care of pt at 2300 on 09/20/18. Pt awake resting in bed during bedside hand-off. Drsg to back c/d/i. Pt aware of spinal precautions. Log roll with minimal assist. Oxycodone effective for pain control until approx 0300. Since then he has been requiring IV Dilaudid for break-thru pain. See mar for medication administration times. Ice pack and repositioning to help with pain Ramirez draining to gravity. Calling appropriately for needs.
[2018-09-21] MEDS: hydroCHLOROthiazide 25 MG TABLET PO (07:50)
[2018-09-21] MEDS: hydrOXYzine pamoate 25 MG CAPSULE PO ×3 (07:50→23:27)
[2018-09-21] MEDS: METOPROLOL ER 50 MG TABLET PO (07:51)
[2018-09-21] MEDS: METFORMIN HCL 500 MG TABLET 1000 MG PO ×2 (07:51→21:40)
[2018-09-21] MEDS: DOCUSATE 100 MG CAPSULE PO ×2 (07:51→21:40)
[2018-09-21] MEDS: PANTOPRAZOLE 40 MG TABLET PO (07:52)
[2018-09-21] MEDS: LISINOPRIL 20 MG TABLET PO (07:52)
[2018-09-21] MEDS: ACETAMINOPHEN 325 MG TABLET 650 MG PO ×2 (07:52→14:54)
--- NOTE | 2018-09-21 09:30 | PT.IPTN ---
Current Diagnoses Spondylolisthesis, lumbosacral region (09/20/18) Other spondylosis with radiculopathy, lumbar region (09/20/18) Spinal stenosis, lumbar region without neurogenic claudication (09/20/18) Surgery Performed Operation Date: 07/28/18 07:45 <No data on this case meets the specified criteria> Operation Date: 09/20/18 07:45 Actual Procedures p L4-5, L5-S1 TLIF w/Posterior Instru. - Teresa Hayes MD Physical Therapy Treatment Note M2 PT-IP Current Condition Start: 09/20/18 18:44 Freq: NEEDED Status: Active Protocol: Document 09/20/18 18:44 [facility] (Rec: 09/20/18 19:04 [facility] [email or web address]) Physical Therapy Current Condition Current Condition Evaluation Date 09/20/18 Treatment Diagnosis L4-5, L5-S1 TLIF Onset Date 09/20/18 Precautions Lumbar Precautions Log Roll No Twisting Limit Bending Lifting Restriction of 10 lbs Gait Belt above Incisional Area Weight Bearing Status Weight Bearing Status Weight Bear as Tolerated M3 PT-IP Subjective Start: 09/20/18 18:44 Freq: NEEDED Status: Active Protocol: Document 09/21/18 09:30 [facility] (Rec: 09/21/18 10:46 [facility] [id number]) Subjective Physical Therapy Visit Type Type Treatment Note Visit Start Time 09:05 Visit Stop Time 09:30 Total Visit Minutes 25 Number of HR SHARED SERVICES CONSULTANT Visits 1 Physical Therapy Visit Comments Patient Comments Pt having more pain. Therapy Pain Assessment Pain When Pain Assessed At Rest Pain Present Pain Present Pain Reported Location Back Intensity 6 Scale Used Numeric (1 - 10) M4 PT-IP Mobility and Gait Start: 09/20/18 18:44 Freq: NEEDED Status: Active Protocol: Document 09/21/18 09:30 [facility] (Rec: 09/21/18 10:46 [facility] [id number]) PT-Bed Mobility Assessment Rolling Type of Rolling Log Rolling Roll to Right Level of Assist Moderate Assistance Supine to Sit Supine to Sit Moderate Assistance Bedrails Scooting Scooting to Edge of Bed Moderate Assistance PT-Transfer Assessment Sit to and From Stand Sit to and from Stand Minimal Assistance Use of Upper Extremities Equipment Transfer Assistive Device Gait Belt Front Wheeled Walker Orthotic/Prosthetic Devices or Brace: No Transfers Transfer Destination Chair Transfer Ability Level of Assist Contact Guard Assistance Use of Upper Extremities Comments Mobility Comments Pt stood from raised bed. Gait Assessment Gait Gait Assistance Required: Contact Guard Assist Distance (Feet) 15 Assistive Devices Assistive Device Gait Belt Front Wheeled Walker Gait Deviations General Gait Pattern Antalgic Decreased Stride Length Decreased Feet Clearance Factors Limiting Gait Function Factors Limiting Gait Function Decreased Strength Limited Range of Motion Pain Poor Balance Comments Gait Comments Pt ambulated with very slow gait and need cues to stay within FWW. M5 PT-IP Objective Assessments Start: 09/20/18 18:44 Freq: NEEDED Status: Active Protocol: Document 09/20/18 18:44 [facility] (Rec: 09/20/18 19:04 [facility] [email or web address]) Orientation Orientation/Cognition Level of Alertness Alert Strength Lower Extremity Strength Assessment Bilaterally Impaired M6 PT-IP Treatment Start: 09/20/18 18:44 Freq: NEEDED Status: Active Protocol: Document 09/21/18 09:30 [facility] (Rec: 09/21/18 10:46 [facility]GD [id number]) Physical Therapy Treatment Education Education Provided Precautions M7 PT-IP Assessment and Plan Start: 09/20/18 18:44 Freq: NEEDED Status: Active Protocol: Document 09/21/18 09:30 [facility] (Rec: 09/21/18 10:46 [facility] [id number]) PT Summary Assessment and Plan Summary Assessment Summary Pt progressing slowly. He ambulated with slow gait pattern with multiple standing rest breaks. He had no LOB during mobility. He is limit by C/O pain with mobility. Frequency of Treatment Frequency Of Treatment Twice a Day Recommendations To Nursing Amount of Assist Needed 1 Person Assist
--- NOTE | 2018-09-21 09:40 | PM.PNPO.1 ---
Subjective Date Patient Seen: 09/21/18 Time Patient Seen: 09:40 Interval history: Pain moderate to severe. Denies fever chills. No nausea vomiting. Exam Vital Signs (past 8 hours): - 09/21/18 01:55 09/21/18 05:25 09/21/18 08:00 Temperature 98.2 F 98.2 F 97.7 F Pulse Rate 69 69 78 Respiratory Rate 18 20 18 Blood Pressure 133/73 129/73 128/80 Pulse Oximetry 95 99 97 Oxygen Delivery Method Room Air,CPAP Oxygen Flow Rate 0 Narrative Exam Narrative: Pleasant 73-year-old male sitting comfortably at bedside chair in no apparent distress. Sensation grossly intact bilateral lower extremities. Motor function intact bilateral lower extremities. Lumbar dressing is clean, dry and intact. Objective Labs Result Diagrams: 09/21/18 05:55 Labs: Laboratory Results - last 24 hr 09/20/18 09/21/18 13:26 05:55 Hgb 13.4 L Hct 39.8 L Urine Color Yellow Urine Appearance Cloudy Urine pH 5.0 Ur Specific [place] 1.025 Urine Protein Negative Urine Glucose (UA) Negative Urine Ketones Negative Urine Occult Blood 1+ H Urine Nitrate Negative Urine Bilirubin Negative Urine Urobilinogen 0.2 Ur Leukocyte Esterase Negative Urine RBC None seen Urine WBC 1-5/hpf Uric Acid Crystals Few Amorphous Sediment 3+ Urine Bacteria None seen Ur Culture Indicated? Cult not indicated Assessment & Plan Post-op Postoperative Procedures Operation Date: 07/28/18 07:45 <No data on this case meets the specified criteria> Operation Date: 09/20/18 07:45 Actual Procedures Side Surgeon p L4-5, L5-S1 TLIF w/Posterior Instru. Teresa Hayes MD Postop day 1. Patient to mobilize with physical therapy. Limit bending, lifting, twisting. Likely discharge home in 1-2 days. Quality VTE Deep Vein Thrombosis/Pulmonary Embolism Present on Admission: No
[2018-09-21] MEDS: HYDROMORPHONE 2 MG TABLET PO (09:52)
[2018-09-21] MEDS: HYDROMORPHONE 0.5 MG INJ IV (11:29)
--- NOTE | 2018-09-21 11:44 | OT.IP.TRT ---
Current Diagnoses Spondylolisthesis, lumbosacral region (09/20/18) Other spondylosis with radiculopathy, lumbar region (09/20/18) Spinal stenosis, lumbar region without neurogenic claudication (09/20/18) Surgery Performed Operation Date: 07/28/18 07:45 <No data on this case meets the specified criteria> Operation Date: 09/20/18 07:45 Actual Procedures p L4-5, L5-S1 TLIF w/Posterior Instru. - Teresa Hayes MD Occupational Therapy Treatment Note M3 OT- IP Subjective and Pain Start: 09/21/18 11:43 Freq: Status: Active Protocol: Document 09/21/18 11:43 [facility] (Rec: 09/21/18 11:44 [facility] [id number]) OT- Subjective Occupational Therapy Visit Type Type Patient Refusal Notes Pt states in lots of pain and nursing just gave pt pain medications and not wanting to do OT eval at this time. To check on pt later.
[2018-09-21] MEDS: HYDROMORPHONE 1 MG INJ IV ×4 (11:51→23:27)
[2018-09-21] MEDS: HYDROMORPHONE 2 MG TABLET 4 MG PO ×2 (12:58→21:38)
--- NOTE | 2018-09-21 14:13 | PC.NURSE ---
Ortho: Pain issues, spoke w/ x1 and RENEA x2, see medication adjustments. Receivied 2 doses of oral dilaudid, 2 doses of IV dilaudid, 1 dose of gabapentin, 2 doses of vistaril, 1 dose of tylenol - pain is now controlled. Pt reports he has no pain right now at rest. Higher dose of dilaudid has been effective. Did work with PT x1 but wasn't able to do much since he was hurting then. OT is coming back later today to see patient. Needs cues to remember his lami precautions, tends to want to twist back when he is turning. Spouse at bedside, she is glad her is feeling better. Ramirez remained in today due to pain and lack of mobility. Pt is back on his flomax as he has difficulty voiding at home at times. Dressing is dry and intact. Resting quietly at the moment. Cont w/poc.
--- NOTE | 2018-09-21 15:43 | PT.IPTN ---
Current Diagnoses Spondylolisthesis, lumbosacral region (09/20/18) Other spondylosis with radiculopathy, lumbar region (09/20/18) Spinal stenosis, lumbar region without neurogenic claudication (09/20/18) Surgery Performed Operation Date: 07/28/18 07:45 <No data on this case meets the specified criteria> Operation Date: 09/20/18 07:45 Actual Procedures p L4-5, L5-S1 TLIF w/Posterior Instru. - Teresa Hayes MD Physical Therapy Treatment Note M2 PT-IP Current Condition Start: 09/20/18 18:44 Freq: NEEDED Status: Active Protocol: Document 09/20/18 18:44 [facility] (Rec: 09/20/18 19:04 [facility] [id number]) Physical Therapy Current Condition Current Condition Evaluation Date 09/20/18 Treatment Diagnosis L4-5, L5-S1 TLIF Onset Date 09/20/18 Precautions Lumbar Precautions Log Roll No Twisting Limit Bending Lifting Restriction of 10 lbs Gait Belt above Incisional Area Weight Bearing Status Weight Bearing Status Weight Bear as Tolerated M3 PT-IP Subjective Start: 09/20/18 18:44 Freq: NEEDED Status: Active Protocol: Document 09/21/18 15:43 [facility] (Rec: 09/21/18 17:43 [facility] [id number]) Subjective Physical Therapy Visit Type Type Treatment Note Visit Start Time 15:43 Visit Stop Time 16:10 Total Visit Minutes 27 Number of FIRE APPARATUS ENGINEER Visits 0 Physical Therapy Visit Comments Patient Comments pt agreeable to do PT Therapy Pain Assessment Pain When Pain Assessed At Rest Pain Present Pain Present Pain Reported Location Back Intensity 9 Scale Used Numeric (1 - 10) Pain Management Techniques Re-positioning Timing of Activity with Medications M4 PT-IP Mobility and Gait Start: 09/20/18 18:44 Freq: NEEDED Status: Active Protocol: Document 09/21/18 15:43 [facility] (Rec: 09/21/18 17:43 AB [id number]) PT-Bed Mobility Assessment Rolling Type of Rolling Log Rolling Level of Assist Moderate Assistance Supine to Sit Supine to Sit Maximum Assistance 1 Person Assistance Scooting Scooting to Edge of Bed Maximum Assistance PT-Transfer Assessment Comments Mobility Comments pt completed supine to sit max A and max cues. attempted sit to stand x 5 reps providing max A and towards last attempted elevated bed up but pt unable to stand. pt with difficulty straightening B knee to stand and c/o increase back pain. spouse stated that she had previous back surgery and just had shoulder surgery and will not be able to assist pt physically. pt and spouse informed that pt is planning on sleeping on his lift chair initially upon d/c. Gait Assessment Comments Gait Comments unable M5 PT-IP Objective Assessments Start: 09/20/18 18:44 Freq: NEEDED Status: Active Protocol: Document 09/20/18 18:44 [facility] (Rec: 09/20/18 19:04 [facility] [id number]) Orientation Orientation/Cognition Level of Alertness Alert Strength Lower Extremity Strength Assessment Bilaterally Impaired M6 PT-IP Treatment Start: 09/20/18 18:44 Freq: NEEDED Status: Active Protocol: Document 09/21/18 15:43 [facility] (Rec: 09/21/18 17:43 AB [id number]) Physical Therapy Treatment Education Education Provided Precautions Safety M7 PT-IP Assessment and Plan Start: 09/20/18 18:44 Freq: NEEDED Status: Active Protocol: Document 09/21/18 15:43 [facility] (Rec: 09/21/18 17:43 AB [id number]) PT Summary Assessment and Plan Potential Rehabilitation Potential Fair Summary Impairments Pain ROM Strength Balance Coordination Sensation Tone Cognition Bed Mobility Transfers Gait Activity Tolerance Progress Towards Goals Slow Progress due to Pain Assessment Summary pt requiring increase assistance this afternoon and unable to stand despite max A provided and modifying bed height. pt's spouse will not be able to physically assist pt at home due to her own medical issues. pt will need SNF rehab to improve strenght and mobility. Goals Bed Mobility Goal Standby Assistance Transfer Goal Standby Assistance Gait Goal Standby Assistance Gait Distance 150ft Other Goals up/down 1 step without rail SBA Days to Meet Goals 5 Frequency of Treatment Frequency Of Treatment Twice a Day Treatment Plan Physical Therapy Treatment Plan Bed Mobility Training Transfer Training Gait Training Therapeutic Exercise Balance Retraining Post Op Education Neuromuscular Re-ed Other Recommendations and Next Treatment bed mobility, sit <>stand, Focus ambulation Recommendations To Nursing Amount of Assist Needed PT/OT Assist Only Discharge Recommendations PT Discharge Recommendations SNF Rehab
--- NOTE | 2018-09-21 19:21 | OT.IP.EVAL ---
Current Diagnoses Spondylolisthesis, lumbosacral region (09/20/18) Other spondylosis with radiculopathy, lumbar region (09/20/18) Spinal stenosis, lumbar region without neurogenic claudication (09/20/18) Surgery Performed Operation Date: 07/28/18 07:45 <No data on this case meets the specified criteria> Operation Date: 09/20/18 07:45 Actual Procedures p L4-5, L5-S1 TLIF w/Posterior Instru. - Teresa Hayes MD Past Medical History (Last Updated 09/20/18 @ 14:04 by Marilee Sargent RN) Anxiety (Acute) Back pain (Acute) Benign prostatic hyperplasia (Acute) Trey's deformity of left heel (Acute ~2011) Hearing impaired (Acute) Kidney stones (Acute) Sinus congestion (Acute) Sleep apnea (Acute) Diabetes mellitus (Acute) GE reflux (Acute) Hypercholesterolemia (Acute) Hypertension (Acute) Surgical History (Last Updated 07/18/18 @ 10:16 by Carline Blum RN) H/O: vasectomy (Acute ~1977) History of bunionectomy of right great toe (Acute ~2012) History of temporal artery biopsy (Acute) Hx of foot surgery (Acute) Hx of lithotripsy (Acute ~2016) Hx of microdiscectomy (Acute ~2013) Hx of tonsillectomy (Acute) Occupational Therapy Inpatient Evaluation/Re-Eval M1 PT/OT-IP Prior Functional Status Start: 09/21/18 11:43 Freq: NEEDED Status: Active Protocol: Document 09/21/18 15:10 [facility] (Rec: 09/21/18 19:21 [facility] [id number]) Medical Review Prior Functional Status Medical History Reviewed Yes Diet/Fluid Consistency Regular Communication WNL Mobility and Gait Pt amb without AD but reports requiring frequent rest breaks Activities of Daily Living and IADL's Indep and helps with home cleaning. Pt use of lift chair to stand at home. Prior Functional Level (Other details) is able to assist with recovery, however unable to do any lifting . Social History Household Members spouse Living Arrangements House Number of Floors (Floors) One Floor Number of Stairs To Enter/Railing? 1 [place] Home Environment High Toilet Walk in Shower Home Equipment Front Wheel Walker Raised Toilet Seat w/Armrests Rigging Up Man Grab Bars In Shower Additional Social History Comment Pt unsure if walker will go high enough. to bring tomorrow M2 OT-IP Current Condition Start: 09/21/18 11:43 Freq: Status: Active Protocol: Document 09/21/18 15:10 [facility] (Rec: 09/21/18 19:21 [facility] [id number]) Occupational Therapy Current Condition Current Condition Evaluation Date 09/21/18 Treatment Diagnosis L4-5, L5-S1 TLIF, weakness Diagnosis Onset Date 09/20/18 Post Operative Precautions Lumbar Precautions Log Roll No Twisting Limit Bending Lifting Restriction of 10 lbs Gait Belt above Incisional Area Weight Bearing Status Weight Bearing Status Weight Bear as Tolerated M3 OT- IP Subjective and Pain Start: 09/21/18 11:43 Freq: Status: Active Protocol: Document 09/21/18 15:10 [facility] (Rec: 09/21/18 19:21 [facility] [id number]) OT- Subjective Occupational Therapy Visit Type Type Initial Evaluation Visit Start Time 15:10 Visit Stop Time 15:45 Total Visit Minutes 35 Notes Pt's present for Ot session. Occupational Therapy Visit Comments Patient Comments Pt needing encouragement to participate. Pt open to going to skilled rehab if needed. OT Pain Assessment Pain When Pain Assessed At Rest Pain Present Pain Present Pain Reported Location Back Intensity 4 Scale Used Numeric (1 - 10) M4 OT- IP ADL's Start: 09/21/18 11:43 Freq: Status: Active Protocol: Document 09/21/18 15:10 [facility] (Rec: 09/21/18 19:21 [facility] [id number]) OT ADL-Grooming Comments OT Grooming Comments Pt states able to do while seated earlier. OT ADL-Dressing General Eval Lower Body Dressing Ability Maximum Assistance Areas Needing Assistance Socks Comments OT Dressing Comments Began education of LB dressing of public stenographer and sock aid. OT ADL-Toileting Comments OT Toileting Comments Pt has toilet aid, no opportunity to practice today. M6 OT- IP Functional Cognition Start: 09/21/18 11:43 Freq: Status: Active Protocol: Document 09/21/18 15:10 [facility] (Rec: 09/21/18 19:21 [facility] [id number]) Cognitive Factors Limiting Selfcare Function Cognitive Ability Level of Alertness Alert Confusional State Patient Orientation Name Place Situation Attention Span Ability Capable of Focused Attention Capable of Sustained Attention Ability to Follow Commands Able to Follow One Step Commands with Increased Time Able to Follow One Step Commands with Repetition Memory Description Short Term Impaired Safety Awareness Decreased Recall of Precautions Decreased Ability to Apply Precautions Underestimates Need for Assistance Problem Solving Ability Unable to Identify Errors Needs Assist to Identify Solutions Cognitive Comments Cognitive Assessment Comments Pt a bit confused and needing step by step instructions for log rolling, and back precautions, and only able to recall 2/3 back precautions at this time. OT- Vision and Hearing OT- Hearing Assessment OT- Hearing Assessment WFL M7 OT- IP Mobility and Balance Start: 09/21/18 11:43 Freq: Status: Active Protocol: Document 09/21/18 15:10 [facility] (Rec: 09/21/18 19:21 [facility] [id number]) OT- Bed Mobility Assessment Rolling Type of Rolling Roll to Left Level of Assistance Minimal Assistance Moderate Assistance Supine to Sit Supine to Sit Assist Minimal Assistance Sit to Supine Sit to Supine Assist Minimal Assistance Moderate Assistance Scooting Scooting to Edge of Bed Minimal Assistance Scooting Up and Down in Bed Minimal Assistance OT-Transfer Assessment Sit to and From Stand Sit to and from Stand Maximum Assistance Transfers Transfer Ability Moderate Assistance Technique Transfer Destination Bed Car Devices Transfer Assistive Devices Gait Belt Front Wheeled Walker Comments Mobility Comments Pt needing MAX A X 1 to stand as decreased BLE strength as prior relied on lift chair to help to stand at home. Pt needing MODA to help get his legs back into the bed and assist for repositioning MODA for his trunk. OT- Balance Assessment Sitting Balance and Reactions Static Sitting Balance Ability Good Dynamic Sitting Balance Ability Good Standing Balance and Reactions Static Standing Balance Ability Fair M8 OT- IP Objective Assessments Start: 09/21/18 11:43 Freq: Status: Active Protocol: Document 09/21/18 15:10 [facility] (Rec: 09/21/18 19:21 [facility] [id number]) OT Gross Range of Motion Upper Extremity Range of Motion Assessment Within Functional Limits OT Strength Upper Extremity Strength Assessment Within Functional Limits M9 OT- IP Assessment and Plan Start: 09/21/18 11:43 Freq: Status: Active Protocol: Document 09/21/18 15:10 [facility] (Rec: 09/21/18 19:21 [facility] [id number]) OT Summary Assessment and Plan Potential Rehabilitation Potential Good Analytic Complexity at Evaluation Low Summary OT Impairments Pain Strength Balance Functional Cognition Functional Mobility Grooming Dressing Toileting Bathing Toilet Transfers Shower Transfers Progress Towards Goals Slow Progress due to Pain Slow Progress due to Medical Issues Slow Progress due to Cognition Assessment Summary Pt low complexity and main barrier is step, decreased BLE strength, balance, and needing extensive assist for all Adl and functional mobility needs. Pt's unable to provide any lifting and therefore pt will have to be mostly independent for all needs. Currently pt's level of care too great for his and would benefit from skilled rehab prior to going home. Goals Grooming Goal Standby Assistance Dressing Goal Minimal Assistance Toileting Goal Standby Assistance Bathing Goal Minimal Assistance Toilet Transfer Goal Standby Assistance Shower Transfer Goal Contact Guard Assistance Patient/Caregiver Education Goal Demonstrate Post-Op Precautions Caregiver Independent Assisting Patient OT-Other Goals Grooming while standing. Days to Meet Goals 10 Frequency of Treatment Frequency Of Treatment Once a Day Treatment Plan OT Treatment Plan ADL Training Functional Cognition Training Functional Mobility Patient/Family Education Discharge Planning Other Treatment Recommendations and Next Standing for grooming. Treatment Focus Discharge Recommendations OT Discharge Recommendations SNF Rehab Home Equipment Needs Shower chair, BSC
[2018-09-21] MEDS: SENNOSIDES 8.6 MG TABLET 17.2 MG PO (21:40)
[2018-09-21] MEDS: TAMSULOSIN 0.4 MG CAPSULE PO (21:40)
[2018-09-21] MEDS: SIMVASTATIN 20 MG TABLET PO (21:40)
[2018-09-21] MEDS: SODIUM CHLORIDE 0.9% FLUSH 10 ML IV (23:27)
[2018-09-22] MEDS: HYDROMORPHONE 2 MG TABLET 4 MG PO ×3 (01:49→10:13)
--- NOTE | 2018-09-22 02:01 | PC.NURSE ---
Addendum entered by Ela De Santiago R.N. 09/22/18 06:17: States pain this morning is back to 8/10 but agreeable to po Dilaudid. Refused ice pack or repositioning. Addendum entered by Ela De Santiago R.N. 09/22/18 03:35: States pain currently 4/10 and has been able to sleep which he didn't think was possible. Medicated now with Vistaril to maintain pain control. Original Note: Patient is alert and oriented. Breath sounds CTA with RA sat of 96%. HRR. Denies nausea. BT present and states he is passing flatus; abdomen is round but patient states is normal. Indwelling catheter is patent; discussed removing in a.m. but patient requests waiting until after therapy. Dressing to back is CDI. Pain severe when first coming on shift so was medicated with IV Dilaudid + po Vistaril and patient has been asleep since. Now when wakened, states pain is 5/10 but better; medicated with po Dilaudid and will attempt to give pain meds when he is able to have them in order to keep pain more manageable. Assisted to reposition q2h as not able to turn self. CMS is intact bilaterally. Refusing SCD's. Fall risk score is high and bed alarm is activated.
[2018-09-22] MEDS: hydrOXYzine pamoate 25 MG CAPSULE PO ×3 (03:33→20:51)
[2018-09-22 07:49] VITALS: BP 119/68; PULSE 68; RESP 18; TEMP 37.2; O2SAT 96
[2018-09-22] MEDS: HYDROMORPHONE 1 MG INJ IV (08:39)
[2018-09-22] MEDS: PANTOPRAZOLE 40 MG TABLET PO (08:41)
[2018-09-22] MEDS: LISINOPRIL 20 MG TABLET PO (08:42)
[2018-09-22] MEDS: METFORMIN HCL 500 MG TABLET 1000 MG PO ×2 (08:42→20:51)
[2018-09-22] MEDS: METOPROLOL ER 50 MG TABLET PO (08:42)
[2018-09-22] MEDS: hydroCHLOROthiazide 25 MG TABLET PO (08:42)
[2018-09-22] MEDS: DOCUSATE 100 MG CAPSULE PO ×2 (08:42→20:51)
[2018-09-22] MEDS: SODIUM CHLORIDE 0.9% FLUSH 10 ML IV ×2 (10:13→20:51)
--- NOTE | 2018-09-22 10:40 | PT.IPTN ---
Current Diagnoses Spondylolisthesis, lumbosacral region (09/20/18) Other spondylosis with radiculopathy, lumbar region (09/20/18) Spinal stenosis, lumbar region without neurogenic claudication (09/20/18) Surgery Performed Operation Date: 07/28/18 07:45 <No data on this case meets the specified criteria> Operation Date: 09/20/18 07:45 Actual Procedures p L4-5, L5-S1 TLIF w/Posterior Instru. - Teresa Hayes MD Physical Therapy Treatment Note M2 PT-IP Current Condition Start: 09/20/18 18:44 Freq: NEEDED Status: Active Protocol: Document 09/20/18 18:44 [facility] (Rec: 09/20/18 19:04 [facility] [id number]) Physical Therapy Current Condition Current Condition Evaluation Date 09/20/18 Treatment Diagnosis L4-5, L5-S1 TLIF Onset Date 09/20/18 Precautions Lumbar Precautions Log Roll No Twisting Limit Bending Lifting Restriction of 10 lbs Gait Belt above Incisional Area Weight Bearing Status Weight Bearing Status Weight Bear as Tolerated M3 PT-IP Subjective Start: 09/20/18 18:44 Freq: NEEDED Status: Active Protocol: Document 09/22/18 10:40 [facility] (Rec: 09/22/18 12:12 [facility] [id number]) Subjective Physical Therapy Visit Type Type Treatment Note Visit Start Time 10:10 Visit Stop Time 10:40 Total Visit Minutes 30 Number of SUPPLY CHAIN VICE PRESIDENT Visits 1 Physical Therapy Visit Comments Patient Comments Pt willing to get up. Therapy Pain Assessment Pain When Pain Assessed At Rest Pain Present Pain Present Pain Reported M4 PT-IP Mobility and Gait Start: 09/20/18 18:44 Freq: NEEDED Status: Active Protocol: Document 09/22/18 10:40 [facility] (Rec: 09/22/18 12:12 [facility] [id number]) PT-Bed Mobility Assessment Rolling Type of Rolling Log Rolling Level of Assist Minimal Assistance Supine to Sit Supine to Sit Moderate Assistance 2 Person Assistance Bedrails Scooting Scooting to Edge of Bed Minimal Assistance PT-Transfer Assessment Sit to and From Stand Sit to and from Stand Moderate Assistance 2 Person Assistance Use of Upper Extremities Equipment Transfer Assistive Device Gait Belt Front Wheeled Walker Orthotic/Prosthetic Devices or Brace: No Transfers Transfer Destination Chair Transfer Ability Level of Assist Minimal Assistance 1 Person Assistance Use of Upper Extremities Comments Mobility Comments Pt stood from raised bed. Gait Assessment Gait Gait Assistance Required: Minimum Assistance Distance (Feet) 15 Assistive Devices Assistive Device Gait Belt Front Wheeled Walker Gait Deviations General Gait Pattern Antalgic Decreased Stride Length Decreased Feet Clearance Factors Limiting Gait Function Factors Limiting Gait Function Decreased Strength Limited Range of Motion Pain Poor Balance Comments Gait Comments Pt had left LE knee buckling with gait and heavy use for UE on FWW. M5 PT-IP Objective Assessments Start: 09/20/18 18:44 Freq: NEEDED Status: Active Protocol: Document 09/20/18 18:44 [facility] (Rec: 09/20/18 19:04 [facility] [id number]) Orientation Orientation/Cognition Level of Alertness Alert Strength Lower Extremity Strength Assessment Bilaterally Impaired M6 PT-IP Treatment Start: 09/20/18 18:44 Freq: NEEDED Status: Active Protocol: Document 09/22/18 10:40 [facility] (Rec: 09/22/18 12:12 [facility] [id number]) Physical Therapy Treatment Exercises Exercises Ankle Pumps Education Education Provided Precautions Safety M7 PT-IP Assessment and Plan Start: 09/20/18 18:44 Freq: NEEDED Status: Active Protocol: Document 09/22/18 10:40 [facility] (Rec: 09/22/18 12:12 [facility] [id number]) PT Summary Assessment and Plan Summary Assessment Summary Pt needing 2 person assist with mobility. He had LE buckling with standing and gait. He would benefit from SNF to improve functional mobility. Frequency of Treatment Frequency Of Treatment Twice a Day Recommendations To Nursing Amount of Assist Needed 2 Person Assist Discharge Recommendations PT Discharge Recommendations SNF Rehab
--- NOTE | 2018-09-22 10:46 | OT.IP.TRT ---
Current Diagnoses Spondylolisthesis, lumbosacral region (09/20/18) Other spondylosis with radiculopathy, lumbar region (09/20/18) Spinal stenosis, lumbar region without neurogenic claudication (09/20/18) Surgery Performed Operation Date: 07/28/18 07:45 <No data on this case meets the specified criteria> Operation Date: 09/20/18 07:45 Actual Procedures p L4-5, L5-S1 TLIF w/Posterior Instru. - Teresa Hayes MD Occupational Therapy Treatment Note M2 OT-IP Current Condition Start: 09/21/18 11:43 Freq: Status: Active Protocol: Document 09/21/18 15:10 [facility] (Rec: 09/21/18 19:21 [facility] [id number]) Occupational Therapy Current Condition Current Condition Evaluation Date 09/21/18 Treatment Diagnosis L4-5, L5-S1 TLIF, weakness Diagnosis Onset Date 09/20/18 Post Operative Precautions Lumbar Precautions Log Roll No Twisting Limit Bending Lifting Restriction of 10 lbs Gait Belt above Incisional Area Weight Bearing Status Weight Bearing Status Weight Bear as Tolerated M3 OT- IP Subjective and Pain Start: 09/21/18 11:43 Freq: Status: Active Protocol: Document 09/22/18 10:37 [facility] (Rec: 09/22/18 10:46 [facility] [id number]) OT- Subjective Occupational Therapy Visit Type Type Treatment Note Visit Start Time 10:07 Visit Stop Time 10:27 Total Visit Minutes 20 Occupational Therapy Visit Comments Patient Comments Pt agreeable to get up with [employer] ADMINISTRATOR and OT joint session due to pt needing extensive assist to get up. OT Pain Assessment Pain When Pain Assessed During Mobility Pain Present Pain Present Pain Reported M4 OT- IP ADL's Start: 09/21/18 11:43 Freq: Status: Active Protocol: Document 09/21/18 15:10 [facility] (Rec: 09/21/18 19:21 [facility] [id number]) OT ADL-Grooming Comments OT Grooming Comments Pt states able to do while seated earlier. OT ADL-Dressing General Eval Lower Body Dressing Ability Maximum Assistance Areas Needing Assistance Socks Comments OT Dressing Comments Began education of LB dressing of hospital scientist and sock aid. OT ADL-Toileting Comments OT Toileting Comments Pt has toilet aid, no opportunity to practice today. M6 OT- IP Functional Cognition Start: 09/21/18 11:43 Freq: Status: Active Protocol: Document 09/22/18 10:37 [facility] (Rec: 09/22/18 10:46 [facility] [id number]) Cognitive Factors Limiting Selfcare Function Cognitive Ability Level of Alertness Alert Patient Orientation Name Place Situation Attention Span Ability Capable of Focused Attention Capable of Sustained Attention Ability to Follow Commands Able to Follow One Step Commands with Increased Time Able to Follow One Step Commands with Repetition Memory Description Short Term Impaired Safety Awareness Decreased Recall of Precautions Decreased Ability to Apply Precautions Underestimates Need for Assistance Problem Solving Ability Unable to Identify Errors Needs Assist to Identify Solutions Cognitive Comments Cognitive Assessment Comments Pt still not remembering his back precautions and very tentative and constantly asking , Is this right? Am I hurting my back? M7 OT- IP Mobility and Balance Start: 09/21/18 11:43 Freq: Status: Active Protocol: Document 09/22/18 10:37 [facility] (Rec: 09/22/18 10:46 [facility] [id number]) OT- Bed Mobility Assessment Rolling Type of Rolling Roll to Right Level of Assistance Minimal Assistance Supine to Sit Supine to Sit Assist Moderate Assistance 2 Person Assistance Scooting Scooting to Edge of Bed Minimal Assistance OT-Transfer Assessment Sit to and From Stand Sit to and from Stand Maximum Assistance 2 Person Assistance Transfers Transfer Ability Maximum Assistance 2 Person Assistance Technique Transfer Destination Bed Chair Devices Transfer Assistive Devices Gait Belt Front Wheeled Walker Comments Mobility Comments Pt LLE tends to buckle and needing more assist today to stand and for transfers with FWW. OT- Balance Assessment Sitting Balance and Reactions Static Sitting Balance Ability Good Dynamic Sitting Balance Ability Fair Standing Balance and Reactions Static Standing Balance Ability Poor M8 OT- IP Objective Assessments Start: 09/21/18 11:43 Freq: Status: Active Protocol: Document 09/21/18 15:10 [facility] (Rec: 09/21/18 19:21 [facility] [id number]) OT Gross Range of Motion Upper Extremity Range of Motion Assessment Within Functional Limits OT Strength Upper Extremity Strength Assessment Within Functional Limits M9 OT- IP Assessment and Plan Start: 09/21/18 11:43 Freq: Status: Active Protocol: Document 09/22/18 10:37 [facility] (Rec: 09/22/18 10:46 [facility] [id number]) OT Summary Assessment and Plan Potential Rehabilitation Potential Good Analytic Complexity at Evaluation Low Summary OT Impairments Pain Strength Balance Functional Cognition Functional Mobility Grooming Dressing Toileting Bathing Toilet Transfers Shower Transfers Progress Towards Goals Slow Progress due to Pain Slow Progress due to Medical Issues Slow Progress due to Cognition Assessment Summary Pt needing more assist for transfers and bed mobility today and would highly benefit from skilled rehab prior to going home as pt's unable to lift him and too great of burden for to assist as pt now needing two person assist for mobility needs. Goals Grooming Goal Standby Assistance Dressing Goal Moderate Assistance Toileting Goal Minimal Assistance Bathing Goal Moderate Assistance Toilet Transfer Goal Minimal Assistance Shower Transfer Goal Moderate Assistance Patient/Caregiver Education Goal Demonstrate Post-Op Precautions Caregiver Independent Assisting Patient Days to Meet Goals 10 Frequency of Treatment Frequency Of Treatment Once a Day Treatment Plan OT Treatment Plan ADL Training Functional Cognition Training Functional Mobility Patient/Family Education Discharge Planning Other Treatment Recommendations and Next Standing for grooming. Treatment Focus Discharge Recommendations OT Discharge Recommendations SNF Rehab Home Equipment Needs Shower chair, BSC
--- NOTE | 2018-09-22 11:13 | CM.DPC ---
DCP: continued: I can't believe how painful this is. I definitely need the rehab stay. Met with pt and his after case discussion in [employer] and with PT/OT recommedation of snf rehab. Introduced self and role. Pt and his very much agree the the need for snf stay. They have already updated their adult children and now with a plan for the family assistance after pt completed rehab/recovery at the snf level. Pt's had recent shoulder surgery and is very supportive but unable to physically assist her . She is also much smaller than ther 6'3 275 lb . SNF choice list: discussed: decision: [facility] if a bed is available. Referral: August/[facility]: will review but expects to have a bed tomorrow if he is stable for same. PASRR: will complete before d/c. Pt and his are now updated on the [facility] bed status and recommended that tour the facility. Both say this is not necessary. They have visited there in past and currently have a friend who is there. P: [facility] when stable for same. Likely tomorrow or Tuesday.
--- NOTE | 2018-09-22 11:32 | PC.NURSE ---
Pts r.wrist dressing taken down by ASYA, bharathi drain removed and incision cleaned up. 4x4, tegaderm, and coban applied. Pt given 1 oxycodone prior with benadry as she itchess with narcotics. She is comfortable and resting at this time.
--- NOTE | 2018-09-22 11:33 | PM.PNPO.1 ---
Subjective Date Patient Seen: 09/22/18 Time Patient Seen: 11:33 Interval history: Patient is POD#2 s/p L4-5, L5-S1 Postero-lateral and posterior interbody fusion with Dr. Hayes. He continues to have severe low back pain with some radiation to the legs. He is already taking Dilaudid PO and has required IV as well. Has not had a bowel movement and has discomfort related to that. No chest pain, shortness of breath, fevers, chills. Exam Vital Signs (past 8 hours): - 09/22/18 07:49 Temperature 99.0 F Pulse Rate 68 Respiratory Rate 18 Blood Pressure 119/68 Pulse Oximetry 96 Oxygen Delivery Method Room Air Oxygen Flow Rate 0 Narrative Exam Narrative: Pleasant 73 year old male on commode in significant discomfort. Alert and oriented. Dressing in place over lumbar spine is clean, dry, and intact. Intact distal motor function. Sensation intact in bilateral lower extremities. Soft compressible calves. Objective Labs Result Diagrams: 09/21/18 05:55 Assessment & Plan Post-op Postoperative Procedures Operation Date: 07/28/18 07:45 <No data on this case meets the specified criteria> Operation Date: 09/20/18 07:45 Actual Procedures Side Surgeon p L4-5, L5-S1 TLIF w/Posterior Instru. Teresa Hayes MD Patient continues to have significant pain. 10mg Decadron given, discussed with patient risks vs benefits of steroids. Will continue to monitor glucose. DC carpenter catheter today. Continue to mobilize with PT. Patient remains 2 person assist, bharath lozano require discharge to SNF as his is unable to physically assist. Quality VTE Deep Vein Thrombosis/Pulmonary Embolism Present on Admission: No
[2018-09-22 11:52] VITALS: BP 133/69; PULSE 71; RESP 16; TEMP 36.5; O2SAT 98
[2018-09-22] MEDS: DEXAMETHASONE 10 MG/ML VIAL IV (14:11)
--- NOTE | 2018-09-22 15:00 | PT.IPTN ---
Current Diagnoses Spondylolisthesis, lumbosacral region (09/20/18) Other spondylosis with radiculopathy, lumbar region (09/20/18) Spinal stenosis, lumbar region without neurogenic claudication (09/20/18) Surgery Performed Operation Date: 07/28/18 07:45 <No data on this case meets the specified criteria> Operation Date: 09/20/18 07:45 Actual Procedures p L4-5, L5-S1 TLIF w/Posterior Instru. - Teresa Hayes MD Physical Therapy Treatment Note M2 PT-IP Current Condition Start: 09/20/18 18:44 Freq: NEEDED Status: Active Protocol: Document 09/20/18 18:44 [facility] (Rec: 09/20/18 19:04 [facility] [id number]) Physical Therapy Current Condition Current Condition Evaluation Date 09/20/18 Treatment Diagnosis L4-5, L5-S1 TLIF Onset Date 09/20/18 Precautions Lumbar Precautions Log Roll No Twisting Limit Bending Lifting Restriction of 10 lbs Gait Belt above Incisional Area Weight Bearing Status Weight Bearing Status Weight Bear as Tolerated M3 PT-IP Subjective Start: 09/20/18 18:44 Freq: NEEDED Status: Active Protocol: Document 09/22/18 15:00 GGD (Rec: 09/22/18 15:29 GGD [id number]) Subjective Physical Therapy Visit Type Type Treatment Note Visit Start Time 14:30 Visit Stop Time 15:00 Total Visit Minutes 30 Number of SCIENTIFIC SPECIALIST Visits 2 Physical Therapy Visit Comments Patient Comments Pt states he feeling a little better. Therapy Pain Assessment Pain When Pain Assessed At Rest Pain Present Pain Present Pain Reported Location Back Intensity 6 Scale Used Numeric (1 - 10) M4 PT-IP Mobility and Gait Start: 09/20/18 18:44 Freq: NEEDED Status: Active Protocol: Document 09/22/18 15:00 GGD (Rec: 09/22/18 15:29 GGD [id number]) PT-Bed Mobility Assessment Rolling Type of Rolling Log Rolling Level of Assist Minimal Assistance Supine to Sit Supine to Sit Moderate Assistance 1 Person Assistance Bedrails Scooting Scooting to Edge of Bed Minimal Assistance PT-Transfer Assessment Sit to and From Stand Sit to and from Stand Minimal Assistance 1 Person Assistance Use of Upper Extremities Equipment Transfer Assistive Device Gait Belt Front Wheeled Walker Orthotic/Prosthetic Devices or Brace: No Transfers Transfer Destination Chair Transfer Ability Level of Assist Minimal Assistance 1 Person Assistance Use of Upper Extremities Comments Mobility Comments Pt stood from raised bed. Gait Assessment Gait Gait Assistance Required: Minimum Assistance Distance (Feet) 15 Assistive Devices Assistive Device Gait Belt Front Wheeled Walker Gait Deviations General Gait Pattern Antalgic Decreased Stride Length Decreased Feet Clearance Factors Limiting Gait Function Factors Limiting Gait Function Decreased Strength Limited Range of Motion Pain Poor Balance Comments Gait Comments Pt had left LE knee buckling with gait and heavy use for UE on FWW. M5 PT-IP Objective Assessments Start: 09/20/18 18:44 Freq: NEEDED Status: Active Protocol: Document 09/20/18 18:44 LR (Rec: 09/20/18 19:04 [facility] [id number]) Orientation Orientation/Cognition Level of Alertness Alert Strength Lower Extremity Strength Assessment Bilaterally Impaired M6 PT-IP Treatment Start: 09/20/18 18:44 Freq: NEEDED Status: Active Protocol: Document 09/22/18 15:00 GGD (Rec: 09/22/18 15:29 GGD [id number]) Physical Therapy Treatment Education Education Provided Precautions M7 PT-IP Assessment and Plan Start: 09/20/18 18:44 Freq: NEEDED Status: Active Protocol: Document 09/22/18 15:00 GGD (Rec: 09/22/18 15:29 GGD [id number]) PT Summary Assessment and Plan Summary Assessment Summary Pt improving with gait and controlled sit. He still having mild LE buckling, but improving slowly. He needing mod A for bed mobility. Pt would benefit from SNF for improved mobility. Frequency of Treatment Frequency Of Treatment Twice a Day Treatment Plan Physical Therapy Treatment Plan Bed Mobility Training Transfer Training Gait Training Therapeutic Exercise Balance Retraining Post Op Education Neuromuscular Re-ed Recommendations To Nursing Amount of Assist Needed 2 Person Assist Discharge Recommendations PT Discharge Recommendations SNF Rehab
[2018-09-22] MEDS: OXYCODONE IR 5 MG TABLET 10 MG PO ×2 (15:30→20:51)
[2018-09-22 16:00] VITALS: BP 123/75; PULSE 66; RESP 18; TEMP 36.4; O2SAT 95
[2018-09-22] MEDS: SENNOSIDES 8.6 MG TABLET 17.2 MG PO (20:51)
[2018-09-22] MEDS: TAMSULOSIN 0.4 MG CAPSULE PO (20:51)
[2018-09-22] MEDS: SIMVASTATIN 20 MG TABLET PO (20:51)
[2018-09-22 21:00] VITALS: BP 122/60; PULSE 66; RESP 18; TEMP 36.8; O2SAT 95
--- NOTE | 2018-09-22 22:39 | PC.NURSE ---
patient is A&O x4, pleasant and cooperative w/ staff and able to make needs known when nec. Patient is resting peacefully. Personal CPAP at bedside. Pain ranging from 4-8 this néstor, but better controlled with 2 oxycodone (10mg) and 1 Vistaril (25mg). POD #2, CMS intact, PP +, patient has improved since begining of shift w/ ambulation. Patients pain was 8/10 at shift change, thus patient was having a very difficult time ambulating. Since pain has been improving and more manageable patient is ambulating better and gait has improved. Patient has had 640ml UOP on néstor since carpenter cath was removed on day shift. Call light w/ in reach, bed in low pos.
--- NOTE | 2018-09-23 00:01 | PC.NURSE ---
Addendum entered by Ela De Santiago R.N. 09/23/18 05:03: Patient awakened as requested earlier (wants pain meds when he can have them). States pain is currently 2/10 and requested/ medicated with Oxycodone + Vistaril. Addendum entered by Ela De Santiago R.N. 09/23/18 01:17: Medicated with Oxycodone + Vistaril per his request. States pain is 4/10. Assisted to stand at side of bed to void. Able to get self in/out of bed but is unsteady on feet still. Original Note: Patient is alert and oriented. Breath sounds diminished but CTA with RA sat of 94%. HRR. Denies nausea. BT hypoactive but passing flatus; no BM since 09/19 but declines offer of MOM at this time. Voiding without dysuria, frequency or urgency following catheter removal. Now able to turn self in bed but is needing 2 assist + walker out of bed and mobility has been reportedly poor. Dressing to back is CDI. States pain is currently only 2/10; repositioned and ice pack applied; requesting to be woke when next pain meds are due. CMS is intact. Declines use of SCD's despite information re: DVT prevention so reminded to ankle wave and patient verbalizes understanding. Fall risk score is high and bed alarm is activated.
[2018-09-23 00:09] VITALS: BP 132/72; PULSE 63; RESP 16; TEMP 36.3; O2SAT 99
[2018-09-23] MEDS: hydrOXYzine pamoate 25 MG CAPSULE PO ×2 (01:04→04:59)
[2018-09-23] MEDS: OXYCODONE IR 5 MG TABLET 10 MG PO ×4 (01:04→13:26)
[2018-09-23 05:58] VITALS: BP 131/53; PULSE 52; RESP 18; TEMP 36.2; O2SAT 98
[2018-09-23 08:00] VITALS: BP 130/51; PULSE 57; RESP 18; TEMP 36.5; O2SAT 98
[2018-09-23] MEDS: DOCUSATE 100 MG CAPSULE PO (09:01)
[2018-09-23] MEDS: PANTOPRAZOLE 40 MG TABLET PO (09:01)
[2018-09-23] MEDS: METFORMIN HCL 500 MG TABLET 1000 MG PO (09:01)
[2018-09-23] MEDS: SODIUM CHLORIDE 0.9% FLUSH 10 ML IV (09:02)
[2018-09-23] MEDS: MAGNESIUM HYDROXIDE 30 ML UDC PO (09:09)
--- NOTE | 2018-09-23 10:29 | PC.NURSE ---
Pts pain controlled better today, Given two oxycodone. He is up with 1 pa and walker. Will go to [facility] for rehab, possibly today. Dressing is cdi to back
--- NOTE | 2018-09-23 10:39 | PM.DS.1 ---
History of Present Illness Date Patient Seen: 09/23/18 Time Patient Seen: 10:39 Chief complaint: [id number] Narrative: Hospital day 4, postop day 3 following L4-5, L5-S1 laminectomy, TLIF, cage, posterior screw fixation by Dr. Hayes. Patient is remained stable postoperatively. Has had slow progress with physical therapy. Continues needing 2 person assist. Has had some buckling of his left knee with standing and walking. It is recommended by PT/OT that patient go to SNF. The patient and his are both in agreement to this. Arrangements have been made at [facility]. Patient is need to have a bowel movement before discharge. Discharge Providers Date of admission: 09/20/18 05:23 Discharge Date: 09/23/18 Primary care physician: Espinoza Gomez MD Consults: 09/20/18 07:00 Consult to Respiratory Therapy Evaluate & Treat Comment: Physician Instructions: Evaluate and treat 09/20/18 13:37 Consult to Occupational Therapy Evaluate & Treat Comment: Physician Instructions: Evaluate and treat Consult to Physical Therapy Evaluate & Treat Comment: Physician Instructions: Evaluate and Treat Discharge provider: Evan Hernandez PA-C Summary Discharge Diagnosis: Status post L4-5, L5-S1 laminectomy, TLIF, cage, posterior screw fixation Hospital Course: Patient brought to hospital on 09/20/2018 for above-noted surgery. Status at Discharge Cognitive/behavioral status at discharge: oriented Functional status at discharge: uses cane/walker Overall status at discharge: patient is progressing back to baseline Time Spent with Patient Less than 30 minutes Exam Vital Signs (past 8 hours): - 09/23/18 05:58 09/23/18 08:00 Temperature 97.1 F L 97.7 F Pulse Rate 52 L 57 L Respiratory Rate 18 18 Blood Pressure 131/53 L 130/51 L Pulse Oximetry 98 98 Oxygen Delivery Method Room Air Oxygen Flow Rate 0 Narrative Exam Narrative: Alert, oriented no acute distress lying in bed. Abdomen. Bowel sounds active soft without tenderness. Back. Dressing to lumbar areas dry without drainage or inflammation. Legs. No calf pain or swelling. Pulses symmetrical. Good pulses and sensation to lower legs. Good strength on foot dorsiflexion plantar flexion. Objective Labs Result Diagrams: 09/21/18 05:55 Discharge Plan Discharge Plan Patient Disposition: SNF Transfer to: [facility] Under care of provider: Facility MD or PCP Transportation: Facility vehicle I certify the postop hospital [facility] care is medically necessary on a continuing basis for any conditions for which he/ she received care during this hospitalization.: Yes The receiving facility has agreed to accept transfer and provide medical treatment.: Yes Discharge Med Rec/Prescriptions Prescriptions: New acetaminophen 325 mg Tablet 650 mg PO Q6HR PRN (Reason: Pain, Mild (1-3)) Qty: 30 RF: 0 oxycodone 5 mg Tablet 10 mg PO Q3HR PRN (Reason: Pain, Severe (7-10)) Qty: 40 RF: 0 hydroxyzine pamoate 25 mg Capsule 25 mg PO Q4HR PRN (Reason: Nausea And Vomiting) Qty: 30 RF: 0 Continued ibuprofen 800 mg Tablet 800 mg PO TID PRN (Reason: Pain) RF: 0 tamsulosin 0.4 mg Capsule 0.4 mg PO BEDTIME RF: 0 gabapentin 300 mg Capsule 300 mg PO TID PRN (Reason: Pain) RF: 0 Flonase Sensimist 27.5 mcg/actuation [place],Suspension 1 spray Intranasal BID RF: 0 metoprolol succinate 50 mg Tablet Extended Release 24 Hr 50 mg PO DAILY RF: 0 lisinopril 20 mg Tablet 20 mg PO DAILY RF: 0 aspirin 81 mg Tablet,Delayed Release (Dr/Ec) 81 mg PO QPM RF: 0 glipizide 2.5 mg Tablet Extended Release 24hr 2.5 mg PO DAILY RF: 0 pantoprazole 40 mg Tablet,Delayed Release (Dr/Ec) 40 mg PO DAILY RF: 0 simvastatin 20 mg Tablet 20 mg PO BEDTIME RF: 0 metformin 1,000 mg Tablet 1,000 mg BID RF: 0 hydrochlorothiazide 25 mg Tablet 25 mg PO DAILY RF: 0 Follow up/Referrals: Espinoza Gomez MD [Primary Care Provider] - Discharge Health Status Brief summary of current health status: Patient had 2 level lumbar fusion. Remained stable postoperatively. Needing further assist with transfers and ambulation. Multidrug resistant organism: No MDRO Provider Discharge Instructions Diet: Diet as Tolerated Liquid consistency: Normal/Thin Food texture: Regular Activity: Ambulate as tolerated. Use walker as needed. No excessive bending or twisting of lumbar spine. No lifting or carrying more than 5-10 lb. Cold/Heat Therapy: Cold pack to lumbar incision area as needed. Skin/Wound/Dressing Care Dressing: Keep CovRsite dressing to lumbar area until postop visit. Special Rehabilitation Services Reason for rehabilitation: Post-operative therapy Rehab type: Physical therapy and Occupational therapy Restrictions to mobility: See activity note. Visit Report/Discharge Packet Instructions: DI for Transforaminal Lumbar Interbody Fusion Discharge Data Primary Care Provider: Espinoza Gomez Attending Provider: Teresa Hayes Admit Date/Time: 09/20/18 05:23 Quality VTE Deep Vein Thrombosis/Pulmonary Embolism Present on Admission: No
--- NOTE | 2018-09-23 10:42 | P.DS_ITS ---
History of Present Illness Date Patient Seen: 09/23/18 Time Patient Seen: 10:39 Chief complaint: [id number] Narrative: Hospital day 4, postop day 3 following L4-5, L5-S1 laminectomy, TLIF, cage, posterior screw fixation by Dr. Hayes. Patient is remained stable postoperatively. Has had slow progress with physical therapy. Continues needing 2 person assist. Has had some buckling of his left knee with standing and walking. It is recommended by PT/OT that patient go to SNF. The patient and his are both in agreement to this. Arrangements have been made at [facility]. Patient is need to have a bowel movement before discharge. Discharge Providers Date of admission: 09/20/18 05:23 Discharge Date: 09/23/18 Primary care physician: Espinoza Gomez MD Consults: 09/20/18 07:00 Consult to Respiratory Therapy Evaluate & Treat Comment: Physician Instructions: Evaluate and treat 09/20/18 13:37 Consult to Occupational Therapy Evaluate & Treat Comment: Physician Instructions: Evaluate and treat Consult to Physical Therapy Evaluate & Treat Comment: Physician Instructions: Evaluate and Treat Discharge provider: Evan Hernandez PA-C Summary Discharge Diagnosis: Status post L4-5, L5-S1 laminectomy, TLIF, cage, posterior screw fixation Hospital Course: Patient brought to hospital on 09/20/2018 for above-noted surgery. Status at Discharge Cognitive/behavioral status at discharge: oriented Functional status at discharge: uses cane/walker Overall status at discharge: patient is progressing back to baseline Time Spent with Patient Less than 30 minutes Exam Vital Signs (past 8 hours): - 09/23/18 05:58 09/23/18 08:00 Temperature 97.1 F L 97.7 F Pulse Rate 52 L 57 L Respiratory Rate 18 18 Blood Pressure 131/53 L 130/51 L Pulse Oximetry 98 98 Oxygen Delivery Method Room Air Oxygen Flow Rate 0 Narrative Exam Narrative: Alert, oriented no acute distress lying in bed. Abdomen. Bowel sounds active soft without tenderness. Back. Dressing to lumbar areas dry without drainage or inflammation. Legs. No calf pain or swelling. Pulses symmetrical. Good pulses and sensation to lower legs. Good strength on foot dorsiflexion plantar flexion. Objective Labs Result Diagrams: 09/21/18 05:55 Discharge Plan Discharge Plan Patient Disposition: SNF Transfer to: [facility] Under care of provider: Facility MD or PCP Transportation: Facility vehicle I certify the postop hospital [facility] care is medically necessary on a continuing basis for any conditions for which he/ she received care during this hospitalization.: Yes The receiving facility has agreed to accept transfer and provide medical treatment.: Yes Discharge Med Rec/Prescriptions Prescriptions: New acetaminophen 325 mg Tablet 650 mg PO Q6HR PRN (Reason: Pain, Mild (1-3)) Qty: 30 RF: 0 oxycodone 5 mg Tablet 10 mg PO Q3HR PRN (Reason: Pain, Severe (7-10)) Qty: 40 RF: 0 hydroxyzine pamoate 25 mg Capsule 25 mg PO Q4HR PRN (Reason: Nausea And Vomiting) Qty: 30 RF: 0 Continued ibuprofen 800 mg Tablet 800 mg PO TID PRN (Reason: Pain) RF: 0 tamsulosin 0.4 mg Capsule 0.4 mg PO BEDTIME RF: 0 gabapentin 300 mg Capsule 300 mg PO TID PRN (Reason: Pain) RF: 0 Flonase Sensimist 27.5 mcg/actuation [place],Suspension 1 spray Intranasal BID RF: 0 metoprolol succinate 50 mg Tablet Extended Release 24 Hr 50 mg PO DAILY RF: 0 lisinopril 20 mg Tablet 20 mg PO DAILY RF: 0 aspirin 81 mg Tablet,Delayed Release (Dr/Ec) 81 mg PO QPM RF: 0 glipizide 2.5 mg Tablet Extended Release 24hr 2.5 mg PO DAILY RF: 0 pantoprazole 40 mg Tablet,Delayed Release (Dr/Ec) 40 mg PO DAILY RF: 0 simvastatin 20 mg Tablet 20 mg PO BEDTIME RF: 0 metformin 1,000 mg Tablet 1,000 mg BID RF: 0 hydrochlorothiazide 25 mg Tablet 25 mg PO DAILY RF: 0 Follow up/Referrals: Espinoza Gomez MD [Primary Care Provider] - Discharge Health Status Brief summary of current health status: Patient had 2 level lumbar fusion. Remained stable postoperatively. Needing further assist with transfers and ambulation. Multidrug resistant organism: No MDRO Provider Discharge Instructions Diet: Diet as Tolerated Liquid consistency: Normal/Thin Food texture: Regular Activity: Ambulate as tolerated. Use walker as needed. No excessive bending or twisting of lumbar spine. No lifting or carrying more than 5-10 lb. Cold/Heat Therapy: Cold pack to lumbar incision area as needed. Skin/Wound/Dressing Care Dressing: Keep CovRsite dressing to lumbar area until postop visit. Special Rehabilitation Services Reason for rehabilitation: Post-operative therapy Rehab type: Physical therapy and Occupational therapy Restrictions to mobility: See activity note. Visit Report/Discharge Packet Instructions: DI for Transforaminal Lumbar Interbody Fusion Discharge Data Primary Care Provider: Espinoza Gomez Attending Provider: Teresa Hayes Admit Date/Time: 09/20/18 05:23 Quality VTE Deep Vein Thrombosis/Pulmonary Embolism Present on Admission: No
[2018-09-23] MEDS: BISACODYL 10 MG SUPP PR (10:47)
--- NOTE | 2018-09-23 11:40 | PT.IPTN ---
Current Diagnoses Spondylolisthesis, lumbosacral region (09/20/18) Other spondylosis with radiculopathy, lumbar region (09/20/18) Spinal stenosis, lumbar region without neurogenic claudication (09/20/18) Surgery Performed Operation Date: 07/28/18 07:45 <No data on this case meets the specified criteria> Operation Date: 09/20/18 07:45 Actual Procedures p L4-5, L5-S1 TLIF w/Posterior Instru. - Teresa Hayes MD Physical Therapy Treatment Note M2 PT-IP Current Condition Start: 09/20/18 18:44 Freq: NEEDED Status: Active Protocol: Document 09/20/18 18:44 LR (Rec: 09/20/18 19:04 [facility] [id number]) Physical Therapy Current Condition Current Condition Evaluation Date 09/20/18 Treatment Diagnosis L4-5, L5-S1 TLIF Onset Date 09/20/18 Precautions Lumbar Precautions Log Roll No Twisting Limit Bending Lifting Restriction of 10 lbs Gait Belt above Incisional Area Weight Bearing Status Weight Bearing Status Weight Bear as Tolerated M3 PT-IP Subjective Start: 09/20/18 18:44 Freq: NEEDED Status: Active Protocol: Document 09/23/18 11:40 GGD (Rec: 09/23/18 12:19 GGD [id number]) Subjective Physical Therapy Visit Type Type Treatment Note Visit Start Time 11:15 Visit Stop Time 11:40 Total Visit Minutes 25 Number of GRINDER MACHINE SETTER Visits 3 Physical Therapy Visit Comments Patient Comments Pt willing to work with therapy. Therapy Pain Assessment Pain When Pain Assessed At Rest Pain Present Pain Present Pain Reported M4 PT-IP Mobility and Gait Start: 09/20/18 18:44 Freq: NEEDED Status: Active Protocol: Document 09/23/18 11:40 GGD (Rec: 09/23/18 12:19 GGD [id number]) PT-Bed Mobility Assessment Rolling Type of Rolling Log Rolling Level of Assist Standby Assistance Supine to Sit Supine to Sit Moderate Assistance 1 Person Assistance Bedrails Scooting Scooting to Edge of Bed Contact Guard Assistance PT-Transfer Assessment Sit to and From Stand Sit to and from Stand Contact Guard Assistance 1 Person Assistance Use of Upper Extremities Equipment Transfer Assistive Device Gait Belt Front Wheeled Walker Orthotic/Prosthetic Devices or Brace: No Transfers Transfer Destination Chair Transfer Ability Level of Assist Minimal Assistance 1 Person Assistance Use of Upper Extremities Comments Mobility Comments Pt stood from raised bed. Gait Assessment Gait Gait Assistance Required: Contact Guard Assist Distance (Feet) 40 Assistive Devices Assistive Device Gait Belt Front Wheeled Walker Gait Deviations General Gait Pattern Antalgic Decreased Stride Length Decreased Feet Clearance Factors Limiting Gait Function Factors Limiting Gait Function Decreased Strength Limited Range of Motion Pain Poor Balance M5 PT-IP Objective Assessments Start: 09/20/18 18:44 Freq: NEEDED Status: Active Protocol: Document 09/20/18 18:44 LR (Rec: 09/20/18 19:04 LR [id number]) Orientation Orientation/Cognition Level of Alertness Alert Strength Lower Extremity Strength Assessment Bilaterally Impaired M6 PT-IP Treatment Start: 09/20/18 18:44 Freq: NEEDED Status: Active Protocol: Document 09/23/18 11:40 GGD (Rec: 09/23/18 12:19 GGD [id number]) Physical Therapy Treatment Education Education Provided Precautions M7 PT-IP Assessment and Plan Start: 09/20/18 18:44 Freq: NEEDED Status: Active Protocol: Document 09/23/18 11:40 GGD (Rec: 09/23/18 12:19 GGD [id number]) PT Summary Assessment and Plan Summary Assessment Summary Pt improving with mobility and gait. He needed less assist for rolling in bed, sit to stand and gait. He still needs mod A for supine to sit. Frequency of Treatment Frequency Of Treatment Twice a Day Treatment Plan Physical Therapy Treatment Plan Bed Mobility Training Transfer Training Gait Training Therapeutic Exercise Balance Retraining Post Op Education Neuromuscular Re-ed Recommendations To Nursing Amount of Assist Needed 1 Person Assist Discharge Recommendations PT Discharge Recommendations SNF Rehab
--- NOTE | 2018-09-23 12:03 | CM.DPC ---
DCP: continued: pt now with d/c to [facility] orders. Have updated [facility] and she is setting up w/c van transport. She expects this to be 1300 or 1330 and she will call to confirm same. Orders are completed, reviewed and faxed to [facility] and placed to snf packet. PASRR is completed, faxed to [facility], copy for [facility] to scan to EMR and original placed in snf packet. Pt (currently working with OT and in bathroom) and his are updated. Pt confirms he feels much better in terms of pain management today and has already worked with PT this morning. He is comfortable with the d/c today. PASRR: #2 : presented to pt's Maeve as pt is busy with OT: signed and given to [facility] for scanning to EMR. HAKEEM Wisdom is updated: Plan: at this point [facility]: [place], approx 1300: waiting for final time confirmation.
--- NOTE | 2018-09-23 13:10 | OT.IP.TRT ---
Current Diagnoses Spondylolisthesis, lumbosacral region (09/20/18) Other spondylosis with radiculopathy, lumbar region (09/20/18) Spinal stenosis, lumbar region without neurogenic claudication (09/20/18) Surgery Performed Operation Date: 07/28/18 07:45 <No data on this case meets the specified criteria> Operation Date: 09/20/18 07:45 Actual Procedures p L4-5, L5-S1 TLIF w/Posterior Instru. - Teresa Hayes MD Occupational Therapy Treatment Note M2 OT-IP Current Condition Start: 09/21/18 11:43 Freq: Status: Active Protocol: Document 09/21/18 15:10 [facility] (Rec: 09/21/18 19:21 [facility] [id number]) Occupational Therapy Current Condition Current Condition Evaluation Date 09/21/18 Treatment Diagnosis L4-5, L5-S1 TLIF, weakness Diagnosis Onset Date 09/20/18 Post Operative Precautions Lumbar Precautions Log Roll No Twisting Limit Bending Lifting Restriction of 10 lbs Gait Belt above Incisional Area Weight Bearing Status Weight Bearing Status Weight Bear as Tolerated M3 OT- IP Subjective and Pain Start: 09/21/18 11:43 Freq: Status: Active Protocol: Document 09/23/18 13:01 [facility] (Rec: 09/23/18 13:10 [facility] [id number]) OT- Subjective Occupational Therapy Visit Type Type Treatment Note Visit Start Time 11:22 Visit Stop Time 12:22 Total Visit Minutes 60 Occupational Therapy Visit Comments Patient Comments Pt wanting to try to have a bowel movement and then wanting to shower. OT Pain Assessment Pain When Pain Assessed At Rest Pain Present Pain Present Denied Pain M4 OT- IP ADL's Start: 09/21/18 11:43 Freq: Status: Active Protocol: Document 09/23/18 13:01 [facility] (Rec: 09/23/18 13:10 [facility] [id number]) OT ADL-Dressing General Eval Lower Body Dressing Ability Maximum Assistance Areas Needing Assistance Socks Comments OT Dressing Comments Pt able to use automotive salesperson to doff his socks. OT ADL-Toileting General Evaluation Toileting Ability Moderate Assistance Areas Needing Assistance Perform Perineal Hygiene Devices Toileting Assistive Devices Grab Bars Comments OT Toileting Comments Pt able to lean to reach , but needing MODA for completeness . OT ADL-Bathing Bathing Type Bathing Type Shower General Evaluation Bathing Ability Moderate Assistance Areas Needing Assistance Wash/Dry Back Wash/Dry Perineal Area Wash/Dry Lower Extremities Devices Bathing Equipment Hand Held Shower Sprayer Shower Chair with Arms Grab Bars Comments OT Bathing Comments Pt still unsteady on his feet and needing heavy use of grab bars to mobile electronics installer order for therapist to assist with pericare needs or therapist to hold onto him and another hand on the grab bar. M6 OT- IP Functional Cognition Start: 09/21/18 11:43 Freq: Status: Active Protocol: Document 09/23/18 13:01 [facility] (Rec: 09/23/18 13:10 [facility] [id number]) Cognitive Factors Limiting Selfcare Function Cognitive Ability Level of Alertness Alert Patient Orientation Name Place Situation Attention Span Ability Capable of Focused Attention Capable of Sustained Attention Ability to Follow Commands Able to Follow Multi-Step Commands Memory Description Short Term Impaired Safety Awareness Underestimates Need for Assistance Problem Solving Ability Needs Assist to Identify Solutions Cognitive Comments Cognitive Assessment Comments Pt able to recall back precautions and thinking better today. Able to talk to pt at length to be proactive while in rehab, ask questions, be clear with nursing on if wanting pain medications at night and request being waken up if sleeping if needed. M7 OT- IP Mobility and Balance Start: 09/21/18 11:43 Freq: Status: Active Protocol: Document 09/23/18 13:01 [facility] (Rec: 09/23/18 13:10 [facility] [id number]) OT- Bed Mobility Assessment Rolling Type of Rolling Roll to Right Level of Assistance Minimal Assistance Supine to Sit Supine to Sit Assist Moderate Assistance 1 Person Assistance OT-Transfer Assessment Sit to and From Stand Sit to and from Stand Minimal Assistance Moderate Assistance Transfers Transfer Ability Minimal Assistance Moderate Assistance Technique Transfer Destination Bed Bedside Commode Chair Devices Transfer Assistive Devices Gait Belt Front Wheeled Walker Comments Mobility Comments Pt still having difficulty to stand and needing to have raised surfaces or heavy use of grab bars and tends to want to pull up on FWW to stand. OT- Balance Assessment Sitting Balance and Reactions Static Sitting Balance Ability Normal Dynamic Sitting Balance Ability Good Standing Balance and Reactions Static Standing Balance Ability Fair M8 OT- IP Objective Assessments Start: 09/21/18 11:43 Freq: Status: Active Protocol: Document 09/21/18 15:10 [facility] (Rec: 09/21/18 19:21 [facility] [id number]) OT Gross Range of Motion Upper Extremity Range of Motion Assessment Within Functional Limits OT Strength Upper Extremity Strength Assessment Within Functional Limits M9 OT- IP Assessment and Plan Start: 09/21/18 11:43 Freq: Status: Active Protocol: Document 09/23/18 13:01 [facility] (Rec: 09/23/18 13:10 [facility] [id number]) OT Summary Assessment and Plan Potential Rehabilitation Potential Good Analytic Complexity at Evaluation Low Summary Progress Towards Goals Progressing Toward Goals Assessment Summary Pt to be discharged to skilled rehab this afternoon. Discharge Recommendations OT Discharge Recommendations SNF Rehab Home Equipment Needs Shower chair, BSC
--- NOTE | 2018-09-23 13:36 | PC.NURSE ---
Pt given PO pain meds prior to discharge for 5/10 pain. Pt out via w/c by [facility] personnel with all belongings.
== END 2018-09-23 13:36 | DRG 455 ==
PROVIDERS: Admitting Provider Orthopaedic Surgery Orthopaedic Surgery of the Spine; PCP Family Medicine; Visit Provider Orthopaedic Surgery Orthopaedic Surgery of the Spine
PROC: 0SG00AJ Fusion of Lumbar Vertebral Joint with Interbody Fusion Device, Posterior Approach, Anterior Column, Open Approach (ICD-10-PCS; principal; 2018-09-20 07:45)
DX: M48.061 Spinal stenosis, lumbar region without neurogenic claudication (principal); M43.17 Spondylolisthesis, lumbosacral region; M47.26 Other spondylosis with radiculopathy, lumbar region; E11.9 Type 2 diabetes mellitus without complications; E66.9 Obesity, unspecified; G47.33 Obstructive sleep apnea (adult) (pediatric); I10 Essential (primary) hypertension; E78.5 Hyperlipidemia, unspecified; K21.9 Gastro-esophageal reflux disease without esophagitis; N40.0 Benign prostatic hyperplasia without lower urinary tract symptoms; Z79.84 Long term (current) use of oral hypoglycemic drugs; M47.27 Other spondylosis with radiculopathy, lumbosacral region; M48.07 Spinal stenosis, lumbosacral region; Z68.35 Body mass index [BMI] 35.0-35.9, adult
CPT/HCPCS: 36415; 72100; 76000; 81001; 82962; 85014; 85018; 97116; 97162; 97165; 97530; 97535; C1776; C9290; J0330; J1100; J1170; J2060; J2250; J2405; J2704; J3010; J3410

== ENCOUNTER → 2021-09-16 15:49 | Outpatient (CLI) | payer MEDICARE, OTHER, SELFPAY ==
[2018-09-20 13:38] VITALS: BMI 35.6
[2021-09-16 16:35] LABS: Add Manual Diff / Slide Review NO; Basophils Absolute Auto 0 /uL (0-100); Basophils Percent Auto 0.1 % (0-2); Eosinophils Absolute Auto 0 /uL (0-450); Hematocrit 41.5 % (41-53); Hemoglobin 13.8 g/dL (13.5-17.5); Lymphocytes Absolute Auto 1300 /uL (1100-4500); Lymphocytes Percent Auto 12.5 % (25-40); Mean Corpuscular HGB Conc 33.3 % (30-36); Mean Corpuscular Hemoglobin 29.7 PG (26-34); Mean Corpuscular Volume 89.2 fL (80-100); Monocytes Absolute Auto 200 /uL (0-900); Monocytes Percent Auto 2.1 % (3-14); Neutrophils Absolute Auto 8600 /uL (1500-7000); Neutrophils Percent Auto 85.3 % (50-75); Platelet Count 241 X10^3/uL (150-400); Red Blood Cell Count 4.66 X10^6/uL (4.5-5.9); Red Cell Distribution Width 14.4 % (11.6-14.8); White Blood Cell Count 10.1 X10^3/uL (4.5-11.0)
[2021-09-16 16:41] LABS: Hemoglobin A1C% w Est Avg Glu 6.9 % (4.0-6.0)
[2021-09-16 16:56] LABS: Alanine Aminotransferase 31 IU/L (<50); Albumin 4.3 g/dL (3.5-5.0); Albumin Globulin Ratio 1.6 (1.0-2.8); Alkaline Phosphatase 77 U/L (38-126); Aspartate Aminotransferase 39 IU/L (17-59); BUN Creatinine Ratio 23.4 (6-22); Bilirubin Total 0.6 mg/dL (0.2-1.3); Blood Urea Nitrogen 29 mg/dL (9-20); Calcium 9.3 mg/dL (8.4-10.2); Carbon Dioxide 26 mmol/L (22-32); Chloride 103 mmol/L (98-107); Estimated Glomerular Filt Rate > 60 mL/min (>60); Globulin 2.7 g/dL (1.7-4.1); Glucose 221 mg/dL (80-110); HEMOLYSIS < 15 (0-50); Potassium 4.6 mmol/L (3.4-5.1); Sodium 139 mmol/L (137-145)
== END ==
PROVIDERS: PCP Physician Assistant Medical; Referring Provider Physician Assistant; Visit Provider Physician Assistant
DX: M25.569 Pain in unspecified knee (principal); Z01.818 Encounter for other preprocedural examination
CPT/HCPCS: 36415; 80053; 83036; 85025; 93005; 93010

== ENCOUNTER → 2021-11-10 10:49 | Outpatient (CLI) | payer MEDICARE, OTHER, SELFPAY ==
[2018-09-20 13:38] VITALS: BMI 35.6
[2021-11-10 13:40] LABS: COVID19 -Nasal RAPID Negative (Negative)
== END ==
PROVIDERS: PCP Physician Assistant Medical; Referring Provider Orthopaedic Surgery; Visit Provider Orthopaedic Surgery
DX: Z20.822 Contact with and (suspected) exposure to COVID-19 (principal)
CPT/HCPCS: 87635; C9803

== ENCOUNTER 2021-11-12 08:04 | Day surgery (SDC) | payer MEDICARE, OTHER, SELFPAY ==
[2018-09-20 13:38] VITALS: BMI 35.6
[2021-10-29 08:53] VITALS: BMI 34.3
[2021-11-12] VITALS (14 sets, daily range): BP systolic 119–157; BP diastolic 52–85; PULSE 50–95; RESP 12–22; TEMP 36.2–36.6; O2SAT 93–99; BMI 34.3
--- NOTE | 2021-11-12 06:00 | DI.RAD.S_ITS ---
PROCEDURE: XR KNEE LT 1TO2V INDICATIONS: TKA TECHNIQUE: 2 view(s) of the knee acquired. COMPARISON: None. FINDINGS: Bones: Patient is status post knee joint arthroplasty. Hardware components are in expected positions. Visualized bony structures are intact. Soft tissues: Overlying postoperative changes are noted. IMPRESSION: Postop changes from left total knee arthroplasty with anatomic left knee alignment. Dictated by: Zen Wright M.D. on 11/12/2021 at 15:29 Approved by: Zen Wright M.D. on 11/12/2021 at 15:29
[2021-11-12] MEDS: CELECOXIB 200 MG CAPSULE PO (08:48)
[2021-11-12] MEDS: ACETAMINOPHEN 325 MG TABLET 975 MG PO (08:48)
[2021-11-12] MEDS: LACTATED RINGERS 1,000 ML 42 ML IV ×2 (08:50→13:20)
[2021-11-12] MEDS: VANCOMYCIN 1,000 MG/200 ML PIGGYBACK 200 MG IV ×2 (10:15→21:35)
--- NOTE | 2021-11-12 10:44 | P.OP_ITS ---
Operative Date/Time/Diagnoses Date of procedure: 11/12/21 Time of procedure: 11:10 Pre-op diagnosis: left knee OA Post-op diagnosis: same Procedure & Clinicians Procedure: Left total knee arthroplasty Same procedure as scheduled: Yes Indications: The patient has had progressively worsening left knee pain with radiographic changes consistent with arthritis. Non-operative management has failed and the patient has requested total knee replacement. The risks, benefits and alternatives to surgery were discussed with the patient prior to proceeding. Risks discussed included, but were not limited to, failure to relieve pain, stiffness, infection, nerve damage, deep venous thrombosis, pulmonary embolism, stroke, coma, heart attack, permanent paralysis and , as well as the potential need for eventual revision of the prosthetic. Surgeon: Lizabeth Shen Policy Value Calculator: Cherie Kaplan Click Yes if Unassisted: Yes Anesthesia Type: General and Spinal Operative Notes Findings: Severe left knee OA, adequate stability Closure Type: primary Specimen(s): none sent Prosthetic devices, grafts, tissues, transplants, or devices: Shen and [facility] BCS 2 size 8 femur, size 8 tibia, +11 poly, 38 oval patella Estimated Blood Loss (mL): 250 Blood products transfused: none Tourniquet time (min): 84 Procedure in detail: The patient was seen in the pre-operative area, where the patient identified the left knee as the operative site and this was marked with my initials. The patient received pre-operative antibiotics, and was taken to the operating room and placed on the operative table in the supine position. After satisfactory anesthesia, a multimedia project manager out was performed. The left leg was encircled with a tourniquet about the proximal thigh, and the leg was prepared from the toes to the tourniquet with ChloroPrep in the usual fashion and draped through sterile drapes. The leg was elevated and exsanguinated with Eschmark bandage and the tourniquet inflated to [250] mmHg pressure. The knee was approached through an approximately 18 cm incision centered over the patella and carried into the knee through a medial parapatellar arthrotomy. A portion of the medial and lateral meniscus was resected. Soft tissue was carefully mobilized around the patella the patella was measured with a caliper. Bone was resected from the patella and the patellar height was reconstituted with up an appropriate sized patellar component. A cover was then placed on the patella. A small amount of additional medial and lateral meniscus was resected. The distal femur was cut at 5?. A [+2] cut was used. It looked like an appropriate distal femoral cut and the cut was made without difficulty. An extramedullary guide was used for the tibial cut. 10 mm was resected off the least affected side.The tibia was prepared. The rotation was assessed. The patient was placed in extension residual medial and lateral meniscus as well as any residual bone was carefully resected. [No] additional tibia was resected. Hemostasis was achieved especially posteriorly. Additional local was injected into the posterior capsule. The extension gap was assessed and additional releas es for gap balancing were performed as necessary. It was checked with the gap chief optometry service. The femoral component trial was placed and the notch was finished. The rotation was assessed and the appropriate size femoral guide was placed on the distal femur and finishing cuts were made. There was no evidence of notching. The anterior, posterior and chamfer cuts were then made. The posterior osteophytes and soft tissues were then removed. The posterior capsule was injected with part of a mixture of 60 ml 0.25% Marcaine mixed with 20 ml Exparel for post operative pain control. The remainder of this mixture was injected into the capsule and subcutaneous tissues during cement curing. The tibial and femoral components were then placed and the knee placed through a range of motion. Range of motion was [0-130], with good stability throughout the range. The trials were then removed, and the tibia was finished. The bone was prepared with pulsatile lavage, and dried with a sponge. Cement was applied and the final prosthetics placed. Excess cement was removed during and after cement curing. A brief Betadine soak was performed. After confirming there was no extruded cement posteriorly, the final tibial insert was placed. The knee was copiously irrigated and the tourniquet deflated. Hemostasis was obtained with the bovie cautery. The capsule was closed with interrupted nonabsorbable suture. The subcutaneous layer was closed with barbed sutures, and the skin with a running 3-0 V-Lock suture and Surgical glue. An Aquacel Ag dressing was applied and the patient was taken to recovery having tolerated the procedure well. Complications: none Post-operative Condition: stable Disposition: Acute Care Plan for aftercare: The patient will be maintained on a standard total knee replacement protocol with weight bearing as tolerated. The patient will receive aspirin and sequential compression devices for DVT prophylaxis. The patient will be discharged home when safe for the home environment.
--- NOTE | 2021-11-12 10:44 | PM.PREOP ---
Pre-operative Note COVID-19 COVID-19 status: Negative Interval Note History & Physical reviewed/Exam performed by Physician: Yes Changes to H&P: No
[2021-11-12] MEDS: CLINDAMYCIN 900 MG/50 ML PIGGYBACK 50 MG IV (11:12)
[2021-11-12] MEDS: TRANEXAMIC ACID 1,000 MG VIAL 2000 MG INJ ×2 (11:14→13:12)
--- NOTE | 2021-11-12 11:46 | SUR.OPER ---
Supine on padded OR bed. Pillow under head, arms secured on padded armboards <90 degree abduction. Safety belt across torso. Non-operative leg secured with tape over blanket over lower leg. Operative leg secured in DeMayo/Timoteo/Nathe positioner. Foam padded brace at thigh of operative leg.
[2021-11-12] MEDS: BUPIVACAINE LIPOSOME 266 MG/20 ML VIAL INJ (11:53)
[2021-11-12] MEDS: BUPIVACAINE 0.5% W/ EPI (PF) 30 ML VIAL INJ (11:56)
[2021-11-12] MEDS: OXYCODONE IR 5 MG TABLET PO (14:25)
[2021-11-12] MEDS: hydrOXYzine 50 MG/ML INJ 25 MG IM (14:28)
[2021-11-12] MEDS: LACTATED RINGERS 1,000 ML 100 ML IV (15:34)
[2021-11-12] MEDS: OXYCODONE IR 10 MG TABLET PO ×2 (15:34→21:32)
[2021-11-12] MEDS: ACETAMINOPHEN 325 MG TABLET 650 MG PO ×2 (17:13→23:11)
[2021-11-12] MEDS: IBUPROFEN 400 MG TABLET PO ×2 (17:14→21:32)
[2021-11-12] MEDS: TAMSULOSIN 0.4 MG CAPSULE PO (21:30)
[2021-11-12] MEDS: FLUTICASONE 120 SPRAY/16 GM SPRAY.SUSP NASAL (21:30)
[2021-11-12] MEDS: METFORMIN HCL 500 MG TABLET 1000 MG PO (21:31)
[2021-11-12] MEDS: ATORVASTATIN 20 MG TABLET 10 MG PO (21:31)
[2021-11-12] MEDS: ASPIRIN EC 81 MG TABLET PO (21:31)
[2021-11-12] MEDS: DOCUSATE 100 MG CAPSULE PO (21:31)
[2021-11-13 01:00] VITALS: BP 136/69; PULSE 63; RESP 18; TEMP 36.1; O2SAT 97
[2021-11-13] MEDS: IBUPROFEN 400 MG TABLET PO ×4 (01:02→11:46)
[2021-11-13] MEDS: OXYCODONE IR 10 MG TABLET PO ×2 (02:03→09:16)
[2021-11-13 05:00] VITALS: BP 132/67; PULSE 70; RESP 16; TEMP 36; O2SAT 96
[2021-11-13] MEDS: ACETAMINOPHEN 325 MG TABLET 650 MG PO ×2 (05:25→11:47)
[2021-11-13 06:24] LABS: Hematocrit 37.7 % (41-53); Hemoglobin 12.6 g/dL (13.5-17.5)
--- NOTE | 2021-11-13 08:10 | P.DS_ITS ---
History of Present Illness History of Present Illness Date Patient Seen: 11/13/21 Time Patient Seen: 08:10 Chief complaint: OPB Narrative: Operative Date/Time/Diagnoses Date of procedure: 11/12/21 Time of procedure: 11:10 Pre-op diagnosis: left knee OA Post-op diagnosis: same Procedure & Clinicians Procedure: Left total knee arthroplasty Same procedure as scheduled: Yes Indications: The patient has had progressively worsening left knee pain with radiographic changes consistent with arthritis. Non-operative management has failed and the patient has requested total knee replacement. The risks, benefits and alternatives to surgery were discussed with the patient prior to proceeding. Risks discussed included, but were not limited to, failure to relieve pain, stiffness, infection, nerve damage, deep venous thrombosis, pulmonary embolism, stroke, coma, heart attack, permanent paralysis and , as well as the potential need for eventual revision of the prosthetic. Surgeon: Lizabeth Shen Dump Truck Operator: Cherie Kaplan Click Yes if Unassisted: Yes Anesthesia Type: General and Spinal Operative Notes Findings: Severe left knee OA, adequate stability Closure Type: primary Specimen(s): none sent Prosthetic devices, grafts, tissues, transplants, or devices: Shen and [employer] BCS 2 size 8 femur, size 8 tibia, +11 poly, 38 oval patella Estimated Blood Loss (mL): 250 Blood products transfused: none Tourniquet time (min): 84 Discharge Providers Provider Discharge Date: 11/13/21 Primary care physician: Domenica Odom PA-C Consults: 11/12/21 06:00 Consult to Anesthesiology Routine Comment: Consulting Provider: Anesthesiologist Reason for consultation: Regional block for post operative pain control 11/12/21 08:46 Consult to Respiratory Therapy Evaluate & Treat Comment: Physician Instructions: Evaluate and treat 11/12/21 12:18 Consult to Physician Routine Comment: consult to primary care provider for followup Consulting Provider: Lizabeth Shen Reason for consultation: Positive STOP BANG, management of obstructive sleep apnea Has provider been notified: Yes 11/12/21 15:10 Consult to Discharge Planning Routine Comment: Consult to Physical Therapy Evaluate & Treat Comment: Physician Instructions: postop TKA protocol Consult to Respiratory Therapy Evaluate & Treat Comment: Physician Instructions: Evaluate and treat Discharge provider: Deya Mejia PA-C Summary Hospital Course Discharge Diagnosis: s/p LEFT total knee arthroplasty Hospital Course: Mr Romero's hospital course was unremarkable. On POD# 1 he was feeling well and wanted to go home; he expressed the need to be safe for fully independent movement as his is his only support at home and she has difficulty with left shoulder and lumbar spine mobility. His pain was well-controlled with oral medication and he was eating and voiding without difficulty. He has outpt PT set up at [facility] in [place]. He was evaluated by PT prior to discharge. Exam Vital Signs (past 8 hours): - 11/13/21 01:00 11/13/21 05:00 Temperature 97.0 F L 96.8 F L Pulse Rate 63 70 Respiratory Rate 18 16 Blood Pressure 136/69 132/67 Pulse Oximetry 97 96 Oxygen Flow Rate 0 0 Oxygen Delivery Method Nasal Cannula Oxygen Flow Rate 0 Narrative Exam Narrative: 5/5 strength in hip flexors, quadriceps, hamstrings, DF, PF, EHL on left. Sensation to light touch intact throughout leg. Calves soft, compressible, nontender and without palpable cords or masses. Aquacel dressing w/ some bloody drainage; otherwise intact. Objective Labs Result Diagrams: 11/13/21 06:09 Labs: Laboratory Results - last 24 hr 11/13/21 06:09 Hgb 12.6 L Hct 37.7 L PFSH Medical History (Updated 10/29/21 @ 09:27 by Carline Blum RN) Anxiety Back pain Benign prostatic hyperplasia COVID-19 virus infection (~09/17/21) Diabetes mellitus GE reflux Trey's deformity of left heel (~2011) Hearing impaired Hypercholesterolemia Hypertension Kidney stones Sinus congestion Sleep apnea Surgical History (Updated 11/13/21 @ 08:22 by Deya Mejia PA-C) H/O: vasectomy (~1977) History of bunionectomy of right great toe (~2012) History of fusion of lumbar spine (09/20/18) History of temporal artery biopsy Hx of foot surgery Hx of lithotripsy (~2016) Hx of microdiscectomy (~2013) Hx of tonsillectomy Social History household members: spouse Smoking Status: Former smoker alcohol intake: current Discharge Assessment & Plan Assessment and Plan Assessment: s/p LEFT total knee replacement Acute anemia d/t expected surgical blood loss Plan of Treatment: Discharge home, outpt PT, multimodal pain control, ASA 81 mg BID x 6 weeks for VTE prophylaxis. Pt asymptomatic, VSS; no intervention needed re acute anemia. Discharge Plan Discharge Plan Patient Disposition: Home Discharge orders & Medications Discharge Orders: Discharge (Order); Ordered 11/13/21 Ordered By: Deya Mejia Prescriptions: New oxycodone 5 mg Tablet 5 mg PO Q4H PRN (Reason: Pain, Moderate (4-6)) Qty: 60 0RF acetaminophen 325 mg Tablet 650 mg PO Q6HR PRN (Reason: fever or pain) Qty: 240 1RF aspirin 81 mg Tablet,Delayed Release (Dr/Ec) 81 mg PO BID Qty: 90 0RF docusate sodium 100 mg Capsule 100 mg PO BID PRN (Reason: constipation) Qty: 60 2RF ibuprofen 400 mg Tablet 400 mg PO Q4HR PRN (Reason: pain (scale score 1-3)) Qty: 120 1RF Continued tamsulosin 0.4 mg Capsule 0.4 mg PO BEDTIME gabapentin 300 mg Capsule 300 mg PO TID PRN (Reason: Pain) Flonase Sensimist 27.5 mcg/actuation [place],Suspension 1 spray Intranasal BID metoprolol succinate 50 mg Tablet Extended Release 24 Hr 50 mg PO DAILY lisinopril 20 mg Tablet 20 mg PO DAILY glipizide 2.5 mg Tablet Extended Release 24hr 2.5 mg PO DAILY pantoprazole 40 mg Tablet,Delayed Release (Dr/Ec) 40 mg PO DAILY simvastatin 20 mg Tablet 20 mg PO BEDTIME metformin 1,000 mg Tablet 1,000 mg PO BID hydrochlorothiazide 25 mg Tablet 25 mg PO DAILY Discontinued acetaminophen 325 mg Tablet 650 mg PO Q6HR PRN (Reason: Pain, Mild (1-3)) Qty: 30 0RF ibuprofen 600 mg Tablet 600 mg PO TID PRN (Reason: Pain) Follow up/Referrals: Lizabeth Shen MD [Physician] - As previously scheduled (Follow up w/ Kasi Jacobson PA-C, on 11/24/2021 @ 2:20 pm at [facility], [facility] office in [place].) Domenica Odom PA-C [Primary Care Provider] - Diet/Activity/Treatments Diet: Diet as Tolerated Activity: Walk frequently! Cold/Heat Therapy: Ice to knee as needed for pain. Skin/Wound/Dressing Care Report to your healthcare provider any signs of infection, such as:: chills, fever, night sweats, unusual drainage and unusual redness Dressing: May remove THOMPSON wrap and shower. Leave Aquacel dressing in place until follow up appointment. No bathing or otherwise soaking incision. Visit Report/Discharge Packet Instructions: DI for Knee Replacement Stand Alone Forms: Surgery Discharge Discharge Data Primary Care Provider: Domenica Odom Attending Provider: Lizabeth Shen
[2021-11-13 08:30] VITALS: BP 127/66; PULSE 46; RESP 20; TEMP 36.6; O2SAT 99
[2021-11-13] MEDS: ASPIRIN EC 81 MG TABLET PO (09:15)
[2021-11-13 09:17] VITALS: BP 126/66; PULSE 46
[2021-11-13] MEDS: METFORMIN HCL 500 MG TABLET 1000 MG PO (09:17)
[2021-11-13] MEDS: DOCUSATE 100 MG CAPSULE PO (09:17)
[2021-11-13] MEDS: hydroCHLOROthiazide 25 MG TABLET PO (09:17)
[2021-11-13] MEDS: PANTOPRAZOLE DR 40 MG TABLET PO (09:18)
[2021-11-13 09:28] VITALS: BP 126/66; PULSE 46
[2021-11-13] MEDS: lisinopriL 20 MG TABLET PO (09:28)
[2021-11-13] MEDS: FLUTICASONE 120 SPRAY/16 GM SPRAY.SUSP NASAL (09:31)
--- NOTE | 2021-11-13 11:30 | PT.IIE ---
Current Diagnoses Bilateral primary osteoarthritis of knee (11/12/21) Presence of unspecified artificial knee joint (11/12/21) Surgery Performed Operation Date: 11/12/21 11:15 Actual Procedures p Total Knee Arthroplasty(Left) - Lizabeth Shen MD Surgical History (Last Updated 10/29/21 @ 09:27 by Carline Blum, RN) H/O: vasectomy (~1977) History of bunionectomy of right great toe (~2012) History of fusion of lumbar spine (09/20/18) History of temporal artery biopsy Hx of foot surgery Hx of lithotripsy (~2016) Hx of microdiscectomy (~2013) Hx of tonsillectomy Medical History (Last Updated 10/29/21 @ 09:27 by Carline Blum, RN) Anxiety Back pain Benign prostatic hyperplasia COVID-19 virus infection (~09/17/21) Diabetes mellitus GE reflux Trey's deformity of left heel (~2011) Hearing impaired Hypercholesterolemia Hypertension Kidney stones Sinus congestion Sleep apnea Physical Therapy Inpatient Evaluation/Re-Eval M1 PT/OT-IP Prior Functional Status Start: 11/13/21 13:03 Freq: NEEDED Status: Active Protocol: Document 11/13/21 11:30 DLM (Rec: 11/13/21 13:21 DLM [id number]) Medical Review Prior Functional Status Medical History Reviewed Yes Diet/Fluid Consistency Regular Communication WFL, [place], glasses for reading Mobility and Gait ambulates without device, used FWW after his back surgery Activities of Daily Living and IADL's Independent, has velcro on shoes, has equipment to help with dressing as needed Social History Household Members spouse Living Arrangements House Number of Floors (Floors) One Floor Number of Stairs To Enter/Railing? ramp from garage Home Environment High Toilet,Walk in Shower Home Equipment Front Wheel Walker,Raised Toilet Seat w/Armrests,Long Handled Shoe Horn,Data Processing Operator,Grab Bars In Shower Employment Status Retired M2 PT-IP Current Condition Start: 11/13/21 13:03 Freq: NEEDED Status: Active Protocol: Document 11/13/21 11:30 DLM (Rec: 11/13/21 13:21 DLM [id number]) Physical Therapy Current Condition Current Condition Evaluation Date 11/13/21 Treatment Diagnosis left TKA, impaired mobility/ gait Onset Date 11/12/21 M3 PT-IP Subjective Start: 11/13/21 13:03 Freq: NEEDED Status: Active Protocol: Document 11/13/21 11:30 DLM (Rec: 11/13/21 13:21 DLM [id number]) Subjective Physical Therapy Visit Type Type Initial Evaluation Visit Start Time 10:30 Visit Stop Time 11:30 Total Visit Minutes 60 Number of FERMENTATION OPERATOR Visits 0 Physical Therapy Visit Comments Patient Comments He is having left knee pain with activity. Patient Goals discharge home M4 PT-IP Mobility and Gait Start: 11/13/21 13:03 Freq: NEEDED Status: Active Protocol: Document 11/13/21 11:30 DLM (Rec: 11/13/21 13:21 DLM [id number]) PT-Bed Mobility Assessment Supine to Sit Supine to Sit Standby Assistance Sit to Supine Sit to Supine Standby Assistance Scooting Scooting to Edge of Bed Independent PT-Transfer Assessment Sit to and From Stand Sit to and from Stand Standby Assistance,Contact Guard Assistance,Use of Upper Extremities Equipment Transfer Assistive Device Gait Belt,Front Wheeled Walker Transfers Transfer Destination Chair Transfer Technique Stand Step Pivot Transfer Ability Level of Assist Standby Assistance,Use of Upper Extremities Comments Mobility Comments He c/o increased knee pain with sit-stand. He currently pushes up with right UE and left UE on FWW for sit-stand. His technique with sit-stand improved with training and verbal cues. He can kick out left foot as needed to manage his pain. Pt using UE's to assist left LE in/out of bed. He wanted to go back to bed to rest after activity. Gait Assessment Gait Gait Assistance Required: Standby Assistance,Contact Guard Assist Distance (Feet) 22 Assistive Devices Assistive Device Gait Belt,Front Wheeled Walker Gait Deviations General Gait Pattern Antalgic,Flexed Trunk,Wide Based Gait Factors Limiting Gait Function Factors Limiting Gait Function Decreased Activity Tolerance, Decreased Strength,Limited Range of Motion,Pain,Poor Balance Comments Gait Comments He needs to use UE support on FWW to manage his left knee pain during weight bearing for gait. He tolerated short distances x 3 trials in his room. He needed seated rests between gait trials. Stair Climbing Assessment Comments Stair Climbing Comments he has a ramp at home to enter the house PT-Balance Assessment Sitting Balance and Reactions Static Sitting Balance Ability Good Dynamic Sitting Balance Ability Good Standing Balance and Reactions Static Standing Balance Ability Good Dynamic Standing Balance Ability Fair Device Used FWW M5 PT-IP Objective Assessments Start: 11/13/21 13:03 Freq: NEEDED Status: Active Protocol: Document 11/13/21 11:30 DLM (Rec: 11/13/21 13:21 [facility] [id number]) Orientation Orientation/Cognition Level of Alertness Alert Orientation Name,Age,Birthday,Month,Date, Year,Day of Week,Place, Situation Language Function Ability Hard of Hearing Safety Awareness Understands Safety Issues Memory Description No Deficits Noted Gross Range of Motion Upper Extremity ROM Assessment Within Functional Limits Lower Extremity ROM Assessment Left Impaired Impairments lacking 20 degrees knee ext in supine, tolerated 90 degrees knee flexion seated. Noted some left ankle stiffness with DF and PF that pt reports is related to other medical issues he has had. Strength Upper Extremity Strength Assessment Within Functional Limits Lower Extremity Strength Assessment Left Impaired Hip needs assist to lift LE off bed Knee ext seated 2+/5 to 3-/5 Ankle DF 4+/5 Coordination Assessment Gross Coordination Gross Coordination WNL Sensation Assessment Sensation Gross Sensation WNL Muscle Tone Muscle Tone WNL Yes M6 PT-IP Treatment Start: 11/13/21 13:03 Freq: NEEDED Status: Active Protocol: Document 11/13/21 11:30 DLM (Rec: 11/13/21 13:21 [facility] [id number]) Physical Therapy Treatment Exercises Exercises Ankle Pumps,Quad Sets,Heel Slides,Straight Leg Raises, Supine Hip Abduction,Short Arc Quads,Passive Knee Extension Hang,Seated Knee Flexion/ Extension Education Education Provided Weight Bearing Status,Post-Op Packet,Safety Other Treatments Other Treatment Performed His is present this visit and observed treatment. His has back pain and is limited in how much physical assist she can provide. Reviewed written HEP and performed 5-10 reps of each exercise as tolerated by pain with assist as needed M7 PT-IP Assessment and Plan Start: 11/13/21 13:03 Freq: NEEDED Status: Active Protocol: Document 11/13/21 11:30 DLM (Rec: 11/13/21 13:21 [facility] [id number]) PT Summary Assessment and Plan Potential Rehabilitation Potential Good Status of Condition at Evaluation Evolving Summary Impairments Pain,ROM,Strength,Balance,Bed Mobility,Transfers,Gait, Activity Tolerance Assessment Summary Blaine is alert and resting in bed. He reports increased left knee pain with activity that limits his activity tolerance. He tolerates short distances of gait in his room with FWW. He demonstrates good safety awareness. His is very supportive but is limited in the physical assist she can provide due to her own health issues. Pt is not ready to discharge yet due to his limited activity tolerance. Will plan to see him again in the afternoon to increase his distances of gait and reassess if he can discharge home today. Notified his nurse. Goals Bed Mobility Goal Independent Transfer Goal Independent,Front Wheeled Walker Gait Goal Independent,Front Wheel Walker Gait Distance 75 feet Days to Meet Goals 2 Frequency of Treatment Frequency Of Treatment Twice a Day Treatment Plan Physical Therapy Treatment Plan Bed Mobility Training,Transfer Training,Gait Training, Therapeutic Exercise,Balance Retraining,Post Op Education, Discharge Planning,Hot or Cold Pack,Neuromuscular Re-ed Other Recommendations and Next Treatment progress distance of gait to Focus at least household distances Weight Bearing Status Weight Bearing Status Weight Bear as Tolerated Recommendations To Nursing Amount of Assist Needed 1 Person Assist Discharge Recommendations PT Discharge Recommendations Home with Assistance, Outpatient PT Other Discharge Recommendations he has out-pt PT scheduled Equipment Needed for Home Before he owns a fWW which is here at Discharge the hospital Transportation Needs at Discharge Private Vehicle
[2021-11-13] MEDS: HYDROMORPHONE 2 MG TABLET PO (11:46)
[2021-11-13 12:35] VITALS: BP 128/51; PULSE 50; RESP 18; TEMP 37.1; O2SAT 96
--- NOTE | 2021-11-13 14:35 | PT.IPTN ---
Current Diagnoses Bilateral primary osteoarthritis of knee (11/12/21) Presence of unspecified artificial knee joint (11/12/21) Surgery Performed Operation Date: 11/12/21 11:15 Actual Procedures p Total Knee Arthroplasty(Left) - Lizabeth Shen MD Physical Therapy Treatment Note M2 PT-IP Current Condition Start: 11/13/21 13:03 Freq: NEEDED Status: Active Protocol: Document 11/13/21 11:30 DLM (Rec: 11/13/21 13:21 DLM [id number]) Physical Therapy Current Condition Current Condition Evaluation Date 11/13/21 Treatment Diagnosis left TKA, impaired mobility/ gait Onset Date 11/12/21 M3 PT-IP Subjective Start: 11/13/21 13:03 Freq: NEEDED Status: Active Protocol: Document 11/13/21 14:35 DLM (Rec: 11/13/21 14:43 DLM [id number]) Subjective Physical Therapy Visit Type Type Treatment Note Visit Start Time 14:00 Visit Stop Time 14:35 Total Visit Minutes 35 Number of SAMPLE SEWER Visits 0 Physical Therapy Visit Comments Patient Comments Pt and his thinks he will be okay going home today. They think he will be okay going to out-pt PT in a week. Patient Goals discharge home today M4 PT-IP Mobility and Gait Start: 11/13/21 13:03 Freq: NEEDED Status: Active Protocol: Document 11/13/21 14:35 DLM (Rec: 11/13/21 14:43 DLM [id number]) PT-Bed Mobility Assessment Supine to Sit Supine to Sit Independent Sit to Supine Sit to Supine Independent Scooting Scooting to Edge of Bed Independent Scooting Up and Down in Bed Independent PT-Transfer Assessment Sit to and From Stand Sit to and from Stand Independent,Use of Upper Extremities Equipment Transfer Assistive Device Gait Belt,Front Wheeled Walker Transfers Transfer Destination Bed,Toilet Transfer Technique Stand Step Pivot Transfer Ability Level of Assist Independent,Use of Upper Extremities Comments Mobility Comments Good technique with sit-stand pushing up with right UE and left UE on FWW. He continues to have increased pain with sit-stand and does better with taller surfaces. He reports having taller chairs at home he can use at home. Gait Assessment Gait Gait Assistance Required: Independent Distance (Feet) 100 Assistive Devices Assistive Device Gait Belt,Front Wheeled Walker Gait Deviations General Gait Pattern Antalgic,Flexed Trunk Factors Limiting Gait Function Factors Limiting Gait Function Abnormal Tonal Influences, Decreased Strength,Limited Range of Motion,Pain,Poor Balance Comments Gait Comments demonstrates safe use of FWW, able to manage his balance with use of FWW, he continues to have increased left knee pain with weight bearing but able to compensate with UEs Stair Climbing Assessment Comments Stair Climbing Comments ramp to enter house from garage PT-Balance Assessment Sitting Balance and Reactions Static Sitting Balance Ability Normal Dynamic Sitting Balance Ability Normal Standing Balance and Reactions Static Standing Balance Ability Good Dynamic Standing Balance Ability Good Device Used FWW M5 PT-IP Objective Assessments Start: 11/13/21 13:03 Freq: NEEDED Status: Active Protocol: Document 11/13/21 14:35 DLM (Rec: 11/13/21 14:43 DL [id number]) Orientation Orientation/Cognition Level of Alertness Alert Orientation Name,Age,Birthday,Month,Date, Year,Day of Week,Place, Situation Language Function Ability Hard of Hearing Safety Awareness Understands Safety Issues Memory Description No Deficits Noted M6 PT-IP Treatment Start: 11/13/21 13:03 Freq: NEEDED Status: Active Protocol: Document 11/13/21 14:35 DLM (Rec: 11/13/21 14:43 DL [id number]) Physical Therapy Treatment Exercises Exercises Ankle Pumps Education Education Provided Safety Other Treatments Other Treatment Performed His is present this visit , answered their questions about home issues including progression of activity M7 PT-IP Assessment and Plan Start: 11/13/21 13:03 Freq: NEEDED Status: Active Protocol: Document 11/13/21 14:35 DLM (Rec: 11/13/21 14:43 [facility] [id number]) PT Summary Assessment and Plan Summary Impairments Pain,ROM,Strength,Balance,Bed Mobility,Transfers,Gait, Activity Tolerance Progress Towards Goals Progressing Toward Goals Assessment Summary Blaine is resting in bed. He reports he sat up for lunch. He reports less pain this afternoon than this morning. He still rates his left knee pain as 7/10 during gait. His pace of gait is slow but safe with the FWW. His is present this visit. Pt appears safe to discharge home this afternoon. Pt and his agree with discharge today. He made good progress with his distance of gait this afternoon. Notified his nurse. Pt met his PT goals. Goals Bed Mobility Goal Independent Transfer Goal Independent,Front Wheeled Walker Gait Goal Independent,Front Wheel Walker Gait Distance 75 feet Days to Meet Goals 2 Frequency of Treatment Frequency Of Treatment Twice a Day Treatment Plan Physical Therapy Treatment Plan Bed Mobility Training,Transfer Training,Gait Training, Therapeutic Exercise,Balance Retraining,Post Op Education, Discharge Planning,Hot or Cold Pack,Neuromuscular Re-ed Other Recommendations and Next Treatment Safe to discharge home this Focus visit Weight Bearing Status Weight Bearing Status Weight Bear as Tolerated Recommendations To Nursing Amount of Assist Needed Standby Assistance Discharge Recommendations PT Discharge Recommendations Home with Assistance, Outpatient PT Other Discharge Recommendations he has out-pt PT scheduled Equipment Needed for Home Before he owns a fWW which is here at Discharge the hospital Transportation Needs at Discharge Private Vehicle
--- NOTE | 2021-11-14 08:44 | CM.IDA ---
Late Entry- Initial DCP Assessment Note Pt is a 76 yo male, resident of [place], met w/patient and spouse POD#1 from lft knee surgery by Dr Shen PCP: Domenica Odom Payer: [facility]/ [facility] Reviewed chart, pt discussed in multidisciplinary rounds this morning. Therapy has cleared pt for return home w/family to assist and pt has planned for home, DC order from Ortho has already been initiated this morning. No barriers identified at this time to patient's safe discharge home w/family to assist; close outpatient f/u recommended. AILEEN Price
== END 2021-11-13 15:26 | disposition home or self-care (01) ==
LOC: OR 08:06 → AC 08:06
PROVIDERS: PCP Physician Assistant Medical; Referring Provider Orthopaedic Surgery; Visit Provider Orthopaedic Surgery
PROC: 0SRD0JZ Replacement of Left Knee Joint with Synthetic Substitute, Open Approach (ICD-10-PCS; CPT 27447; principal; 2021-11-12 11:15)
DX: M17.0 Bilateral primary osteoarthritis of knee (principal); G47.30 Sleep apnea, unspecified; E78.5 Hyperlipidemia, unspecified; E11.9 Type 2 diabetes mellitus without complications; I10 Essential (primary) hypertension; N40.0 Benign prostatic hyperplasia without lower urinary tract symptoms; E66.9 Obesity, unspecified; Z68.33 Body mass index [BMI] 33.0-33.9, adult; Z79.84 Long term (current) use of oral hypoglycemic drugs
CPT/HCPCS: 27447; 36415; 73560; 85014; 85018; 97110; 97116; 97162; 97530; C1776; C1713; C9290; J1100; J2250; J2405; J2704; J3010; J3410

== ENCOUNTER → 2023-02-02 11:05 | Outpatient (CLI) | payer MEDICARE, OTHER, SELFPAY ==
[2021-11-12 15:16] VITALS: BMI 34.3
--- NOTE | 2023-02-02 | DI.MRI.S_ITS ---
PROCEDURE: MR KNEE RT WO CON INDICATIONS: RIGHT KNEE PAIN / OA TECHNIQUE: Noncontrast sagittal PD fast spin echo and T2 fast spin echo with fat saturation, sagittal 3-D FLASH with fat saturation; coronal T1 spin echo and PD fast spin echo with fat saturation, and axial PD fast spin echo with fat saturation through the knee. COMPARISON: None. FINDINGS: Image quality: Excellent. Menisci: Peripheral displacement of medial meniscus bowing medial collateral ligament is seen. Complex tear involving anterior horn, body and posterior horn of medial meniscus is seen extending to both superior and inferior articulating surfaces. Oblique tear involving anterior horn of lateral meniscus extending to inferior articulating surface is also seen. The meniscal root ligaments appear intact. Cruciate ligaments: The anterior cruciate ligament is thickened with intrasubstance T2 hyperintense signal near its femoral insertion. The posterior cruciate ligament is intact. Medial structures: The medial collateral ligament appears thickened with intrasubstance T2 hyperintense signal and surrounding soft tissue edema.. Visualized portions of the pes anserinus tendons appear normal. No abnormal bursal fluid. Lateral structures: The lateral collateral ligament, long and short heads of the biceps femoris tendon appear thickened. Tendinosis involving popliteus tendon extending to musculotendinous junction is seen. Iliotibial band appears normal. Anterior structures: Nonspecific mild soft tissue edema and swelling along anterior aspect of patella and patella tendon is seen. The quadriceps and patellar tendons appear intact. Patellar alignment is normal. Bones and cartilage: There is moderate to severe tricompartmental osteoarthritis and chondromalacia most notably in medial femoral tibial compartment. Edema involving medial periphery of medial femoral condyle and proximal tibia extending to anterior aspect of medial and lateral tibial plateau is seen without discrete fracture line. Joint space: There is large knee joint fluid. There is a lobulated bakers cyst measures 2.2 x 2.2 x 4.1 cm in size. Normal appearing synovial plicae are incidentally noted. IMPRESSION: 1. Complex tear involving entire medial meniscus extending to both superior and inferior articulating surfaces. Oblique tear involving anterior horn of lateral meniscus extending to inferior articulating surface. 2. Degenerative changes and low-grade partial-thickness tear involving proximal ACL at its femoral insertion. The PCL is intact. 3. Moderate grade MCL sprain/partial-thickness tear. Low-grade LCL sprain. Distal biceps femorals tendinosis. Popliteus tendinosis . 4. Moderate to severe tricompartmental osteoarthritis and chondromalacia most notably in medial femoral tibial compartment. Bony contusion in medial femoral tibial compartment. No fracture or dislocation. Moderate to large joint effusion, no gross loose bodies. Whitley's cyst as above. Dictated by: Zen Wright M.D. on 02/02/2023 at 12:07 Approved by: Zen Wright M.D. on 02/02/2023 at 12:50
== END ==
PROVIDERS: PCP Physician Assistant Medical; Referring Provider Orthopaedic Surgery; Visit Provider Orthopaedic Surgery
DX: S83.231A Complex tear of medial meniscus, current injury, right knee, initial encounter (principal); S83.281A Other tear of lateral meniscus, current injury, right knee, initial encounter; S83.411A Sprain of medial collateral ligament of right knee, initial encounter; S83.511A Sprain of anterior cruciate ligament of right knee, initial encounter; M17.11 Unilateral primary osteoarthritis, right knee; S83.421A Sprain of lateral collateral ligament of right knee, initial encounter; M94.261 Chondromalacia, right knee; M71.21 Synovial cyst of popliteal space [Baker], right knee; M25.561 Pain in right knee
CPT/HCPCS: 73721

== ENCOUNTER → 2023-02-18 11:43 | Outpatient (CLI) | payer MEDICARE, OTHER, SELFPAY ==
[2021-11-12 15:16] VITALS: BMI 34.3
[2023-02-18 13:34] LABS: Hemoglobin A1C% w Est Avg Glu 7.8 % (4.0-6.0)
[2023-02-18 13:48] LABS: Add Manual Diff / Slide Review NO; Basophils Absolute Auto 0 /uL (0-100); Basophils Percent Auto 0.2 % (0-2); Eosinophils Absolute Auto 100 /uL (0-450); Eosinophils Percent Auto 0.7 % (2-4); Hematocrit 41.6 % (41-53); Lymphocytes Absolute Auto 2500 /uL (1100-4500); Lymphocytes Percent Auto 30.7 % (25-40); Mean Corpuscular HGB Conc 33.8 % (30-36); Mean Corpuscular Volume 88.9 fL (80-100); Monocytes Absolute Auto 500 /uL (0-900); Monocytes Percent Auto 6.5 % (3-14); Neutrophils Absolute Auto 5000 /uL (1500-7000); Neutrophils Percent Auto 61.9 % (50-75); Platelet Count 223 X10^3/uL (150-400); Red Blood Cell Count 4.68 X10^6/uL (4.5-5.9)
[2023-02-18 13:58] LABS: Appearance Urine UA CLEAR; Bilirubin Urine UA NEGATIVE (NEGATIVE); Color Urine UA YELLOW; Glucose Urine UA NEGATIVE (Negative); Ketones Urine UA NEGATIVE (NEGATIVE); Leukocyte Esterase Urine UA NEGATIVE (NEGATIVE); Nitrite Urine UA NEGATIVE (Negative); Occult Blood Urine UA 1+ (Negative); Protein Urine UA NEGATIVE (Negative); Specific Gravity Urine UA 1.025 (1.000-1.035); Urobilinogen Urine UA 0.2 E.U./dL (0.2)
[2023-02-18 14:09] LABS: RBC Urine None Seen (0-5/HPF)
[2023-02-18 14:10] LABS: Bacteria Urine Few (2-10); Culture Indicated Urine Cult Not Indicated; Mucus Urine 1+ (Negative); Squamous Epithelial Cell Urine 0-1 /HPF (0-5/HPF); WBC Urine None Seen (0-5/HPF)
[2023-02-18 15:22] LABS: Alanine Aminotransferase 14 IU/L (<50); Albumin 4.2 g/dL (3.5-5.0); Albumin Globulin Ratio 1.4 (1.0-2.8); Alkaline Phosphatase 88 U/L (38-126); Aspartate Aminotransferase 23 IU/L (17-59); BUN Creatinine Ratio 13.5 (6-22); Bilirubin Total 0.9 mg/dL (0.2-1.3); Blood Urea Nitrogen 23 mg/dL (9-20); Calcium 9.4 mg/dL (8.4-10.2); Carbon Dioxide 27 mmol/L (22-32); Chloride 102 mmol/L (98-107); Estimated Glomerular Filt Rate 41 mL/min (>60); Globulin 3.1 g/dL (1.7-4.1); Glucose 100 mg/dL (80-110); HEMOLYSIS < 15 (0-50); Potassium 4.7 mmol/L (3.4-5.1); Sodium 139 mmol/L (137-145); Total Protein 7.3 g/dL (6.3-8.2)
== END ==
PROVIDERS: PCP Physician Assistant Medical; Referring Provider Orthopaedic Surgery; Visit Provider Orthopaedic Surgery
DX: Z01.818 Encounter for other preprocedural examination (principal); R73.9 Hyperglycemia, unspecified; Z01.812 Encounter for preprocedural laboratory examination
CPT/HCPCS: 36415; 80053; 81001; 83036; 85025; 93005; 93010

== ENCOUNTER 2023-03-08 08:15 | Inpatient (IN) | payer MEDICARE, OTHER, SELFPAY ==
[2021-11-12 15:16] VITALS: BMI 34.3
[2023-03-02 09:54] VITALS: BMI 32.5
[2023-03-08] VITALS (14 sets, daily range): BP systolic 135–160; BP diastolic 73–96; PULSE 45–77; RESP 10–18; TEMP 35.9–36.6; O2SAT 96–100; BMI 32.5
[2023-03-08] MEDS: ACETAMINOPHEN 325 MG TABLET 975 MG PO (10:20)
[2023-03-08] MEDS: VANCOMYCIN 1,000 MG/200 ML PIGGYBACK 200 MG IV (10:27)
--- NOTE | 2023-03-08 11:03 | PM.OP.1 ---
Operative Date/Time/Diagnoses Date of procedure: 03/08/23 Time of procedure: 11:20 Pre-op diagnosis: right knee OA Post-op diagnosis: same Procedure & Clinicians Procedure: Right total knee arthroplasty Same procedure as scheduled: Yes Indications: The patient has had progressively worsening right knee pain with radiographic changes consistent with arthritis. Non-operative management has failed and the patient has requested total knee replacement. The risks, benefits and alternatives to surgery were discussed with the patient prior to proceeding. Risks discussed included, but were not limited to, failure to relieve pain, stiffness, infection, nerve damage, deep venous thrombosis, pulmonary embolism, stroke, coma, heart attack, permanent paralysis and , as well as the potential need for eventual revision of the prosthetic. Surgeon: Lizabeth Shen Polisher Numeral: Lashawn Napier Anesthesia Type: General, Spinal and Peripheral nerve block Operative Notes Findings: Severe right knee osteoarthritis, significant synovitis Closure Type: primary Specimen(s): none sent Prosthetic devices, grafts, tissues, transplants, or devices: [facility] 2 size 8 femur, size 7 tibia, +9 poly, 38 oval patella Estimated Blood Loss (mL): 250 Blood products transfused: none Tourniquet time (min): 90 Procedure in detail: The patient was seen in the pre-operative area, where the patient identified the right knee as the operative site and this was marked with my initials. The patient received pre-operative antibiotics, and was taken to the operating room and placed on the operative table in the supine position. After satisfactory anesthesia, a renal nurse out was performed. The right leg was encircled with a tourniquet about the proximal thigh, and the leg was prepared from the toes to the tourniquet with ChloroPrep in the usual fashion and draped through sterile drapes. The leg was elevated and exsanguinated with Eschmark bandage and the tourniquet inflated to [250] mmHg pressure. A PA was used during the procedure and was essential for intraoperative retraction and safe implantation of the components. The knee was approached through an approximately 18 cm incision centered over the patella and carried into the knee through a medial parapatellar arthrotomy. A portion of the medial and lateral meniscus was resected. Soft tissue was carefully mobilized around the patella the patella was measured with a caliper. Bone was resected from the patella and the patellar height was reconstituted with up an appropriate sized patellar component. A cover was then placed on the patella. A small amount of additional medial and lateral meniscus was resected. The distal femur was cut at 5?. A [+2] cut was used. It looked like an appropriate distal femoral cut and the cut was made without difficulty. An extramedullary guide was used for the tibial cut. 10 mm was resected off the least affected side.The tibia was prepared. The rotation was assessed. The patient was placed in extension residual medial and lateral meniscus as well as any residual bone was carefully resected. [No] additional tibia was resected. Hemostasis was achieved especially posteriorly. Additional local was injected into the posterior capsule. The extension gap was assessed and additional releases for gap balancing were performed as necessary. It was checked with the gap employment educational coord. The femoral component was trial was placed and the notch was finished. The rotation was assessed and the appropriate size femoral guide was placed on the distal femur and finishing cuts were made. There was no evidence of notching. The anterior, posterior and chamfer cuts were then made. The posterior osteophytes and soft tissues were then removed. The posterior capsule was injected with part of a mixture of 60 ml 0.25% Marcaine mixed with 20 ml Exparel for post operative pain control. The remainder of this mixture was injected into the capsule and subcutaneous tissues during cement curing. The tibial and femoral components were then placed and the knee placed through a range of motion. Range of motion was [0-130], with good stability throughout the range. The trials were then removed, and the tibia was finished. The bone was prepared with pulsatile lavage, and dried with a sponge. Cement was applied and the final prosthetics placed. Excess cement was removed during and after cement curing. A brief Betadine soak was performed. After confirming there was no extruded cement posteriorly, the final tibial insert was placed. The knee was copiously irrigated and the tourniquet deflated. Hemostasis was obtained with the Bovie cautery. A drain was placed and brought out superolaterally. The capsule was closed with interrupted nonabsorbable suture. The subcutaneous layer was closed with barbed sutures, and the skin with a running 3-0 V-Lock suture and Surgical glue. An Aquacel Ag dressing was applied and the patient was taken to recovery having tolerated the procedure well. Complications: none Post-operative Condition: stable Disposition: Acute Care Plan for aftercare: The patient will be maintained on a standard total knee replacement protocol with weight bearing as tolerated. The patient will receive aspirin and sequential compression devices for DVT prophylaxis. The patient will be discharged home when safe for the home environment.
--- NOTE | 2023-03-08 11:05 | PM.PREOP ---
Pre-operative Note Interval Note History & Physical reviewed/Exam performed by Physician: Yes Changes to H&P: No
--- NOTE | 2023-03-08 11:07 | SUR.PREOP ---
Block start time [1102] . Monitoring initiated and maintained throughout procedure. Oxygen and medications given per anesthesiologist instructions. Patient remained stable throughout procedure, no adverse reactions noted. Block end time [1104].
[2023-03-08] MEDS: CEFAZOLIN 2 GM/100 ML PREMIX 100 ML IV ×2 (11:30→18:43)
[2023-03-08] MEDS: TRANEXAMIC ACID 1,000 MG in SODIUM CHLORIDE 0.9% 100 ML 200 MG IV ×2 (11:32→13:16)
[2023-03-08] MEDS: BUPIVACAINE 0.25% (PF) 30 ML, EPINEPHrine 0.15 MG INJ (12:41)
--- NOTE | 2023-03-08 13:00 | DI.RAD.S_ITS ---
PROCEDURE: XR KNEE RT 1TO2V INDICATIONS: RIGHT TOTAL KNEE TECHNIQUE: 2 view(s) of the knee acquired. COMPARISON: [facility], CR, XR KNEE 4+ VIEWS RIGHT, 01/20/2023, 17:19. [facility], CR, XR KNEE LT 1TO2V, 11/12/2021, 13:52. FINDINGS: Bones: Patient is status post knee joint arthroplasty. Hardware components are in expected positions. Visualized bony structures are intact. Soft tissues: Overlying postoperative changes are noted. IMPRESSION: Expected post-operative appearance of a knee arthroplasty. Dictated by: Artemio Dumont M.D. on 03/09/2023 at 10:13 Approved by: Artemio Dumont M.D. on 03/09/2023 at 10:13
[2023-03-08] MEDS: BUPIVACAINE LIPOSOME 266 MG/20 ML VIAL INJ (13:22)
[2023-03-08] MEDS: LACTATED RINGERS 1,000 ML 42 ML IV (13:27)
[2023-03-08] MEDS: fentaNYL 100 MCG/2 ML INJ IV ×4 (14:08→14:24)
--- NOTE | 2023-03-08 14:20 | CM.DPNOTE ---
Addendum entered by AILEEN Mcgarry 03/08/23 15:43: Pt spouse had requested to speak to this FINAL INSPECTOR MOVEMENT ASSEMBLY regarding the dcp. FINAL INSPECTOR MOVEMENT ASSEMBLY entered room and introduced self and role. Pt resting in bed accompanied by spouse at bedside. Spouse concerned about getting him to PT. This FINAL INSPECTOR MOVEMENT ASSEMBLY updated pt and spouse that Dr Shen already notified this team and a referral to [facility] was already made. Spouse and pt appreciative. FINAL INSPECTOR MOVEMENT ASSEMBLY provided pt with [facility] brochure and informed them we were pending acceptance. Pt and spouse expressed verbal understanding. Pt, spouse, and this FINAL INSPECTOR MOVEMENT ASSEMBLY plan to meet tomorrow morning to review dcp. SL Original Note: DCP Note Pt is a 77yo man from [place] following total knee surgery on 03.08.23. Pt has medicare and for life. PCP is Domenica Odom. CM team received notice from Dr. Shen inquiring about services for pt. PT/RN. LUIS Ochoa updated her on choices and soonest start availability for different HH agencies. Ac wanted soonest availability for pt. FINAL INSPECTOR MOVEMENT ASSEMBLY placed HH order. FINAL INSPECTOR MOVEMENT ASSEMBLY spoke with Ras/Odessa at [facility]. [facility]. [facility] reviewing. FINAL INSPECTOR MOVEMENT ASSEMBLY completed face to face, LUIS Ochoa kindly agreed to scan into chart and send to [facility] along with other initial referral information. FINAL INSPECTOR MOVEMENT ASSEMBLY did not meet with pt due to pt not coming up to floor. CM team will continue to follow as able. AILEEN Mcgarry
--- NOTE | 2023-03-08 14:22 | SUR.PHASEI ---
See order from anesthesia for oxycodone 10mg to start in PACU for pain 10/21.
[2023-03-08] MEDS: OXYCODONE IR 5 MG TABLET 10 MG PO (14:33)
--- NOTE | 2023-03-08 15:00 | SUR.PHASEI ---
Pt transfered to room 211 by Brittney PALACIO. SBAR report called to Alyx PALACIO.
--- NOTE | 2023-03-08 16:00 | PC.NURSE ---
Patient is alert and oriented x4, he had a r.total knee replacement. Incision is with durmobond, aquacel, and nemesio wrap. He has ice applied to area and was given 10mg of oxycodone at 1430. This has been helpful and patients pain level is a 4/10. His is at bedside and patient will be on ivf and have ibuprofen and tylenol now. He has sleep apnea and wears a cpap, which we will help set up. Patient is also diabetic and his check will be around 1645.
[2023-03-08] MEDS: ACETAMINOPHEN 325 MG TABLET 650 MG PO ×2 (16:04→21:49)
[2023-03-08] MEDS: LACTATED RINGERS 1,000 ML 100 ML IV (16:04)
[2023-03-08] MEDS: INSULIN LISPRO 100 UNIT/ML 3ML VIAL SUBCUT (21:07)
[2023-03-08] MEDS: DOCUSATE 100 MG CAPSULE PO (21:08)
[2023-03-08] MEDS: ASPIRIN EC 81 MG TABLET PO (21:08)
[2023-03-08] MEDS: FLUTICASONE 120 SPRAY/16 GM SPRAY.SUSP NASAL (21:08)
[2023-03-08] MEDS: ATORVASTATIN 20 MG TABLET 10 MG PO (21:09)
[2023-03-08] MEDS: TAMSULOSIN 0.4 MG CAPSULE PO (21:10)
[2023-03-09] VITALS (8 sets, daily range): BP systolic 131–162; BP diastolic 63–82; PULSE 47–58; RESP 16–18; TEMP 36.1–36.7; O2SAT 96–99
[2023-03-09] MEDS: CEFAZOLIN 2 GM/100 ML PREMIX 100 ML IV (03:16)
[2023-03-09] MEDS: ACETAMINOPHEN 325 MG TABLET 650 MG PO ×4 (03:17→21:15)
[2023-03-09] MEDS: SODIUM CHLORIDE 0.9% FLUSH 10 ML IV ×2 (04:57→21:14)
[2023-03-09 05:49] LABS: Hematocrit 38.6 % (41-53); Hemoglobin 12.8 g/dL (13.5-17.5)
[2023-03-09] MEDS: OXYCODONE IR 5 MG TABLET PO ×3 (07:47→19:58)
[2023-03-09] MEDS: lisinopriL 20 MG TABLET PO (08:40)
[2023-03-09] MEDS: ASPIRIN EC 81 MG TABLET PO ×2 (08:40→21:13)
[2023-03-09] MEDS: DOCUSATE 100 MG CAPSULE PO ×2 (08:40→21:13)
[2023-03-09] MEDS: INSULIN LISPRO 100 UNIT/ML 3ML VIAL SUBCUT (08:42)
--- NOTE | 2023-03-09 09:05 | CM.DANOTE ---
Addendum entered by AILEEN Mcgarry 03/09/23 11:23: La from [facility] reports they are likely to start care within the next few days and will prioritize him. Per chart, DC order in. AUTOMOBILE RADIO REPAIRER met with pt and spouse at bedside. Pt reports feeling anxious after working with PT. Pt reports understanding that insurance would not cover SNF stay with current status. Pt reports willing to dc home with spouse and HH after afternoon PT. Plan: home later in afternoon following PT[facility]. CM team will continue to follow as needed. Original Note: DCP Assessment Note Pt is a 77yo M here following knee surgery with Dr Shen on 03.08.23 PCP Domenica Odom Payer Medicare and deeplocal AUTOMOBILE RADIO REPAIRER reviewed EMR. PT/OT pending. AUTOMOBILE RADIO REPAIRER spoke with La at [facility]. Review pending- likely to accept. Unsure now on earliest start of care date. AUTOMOBILE RADIO REPAIRER entered room and introduced self and role. Pt sitting up in bed. Pt has a ramp into the house, a walker/cane, shower rails, grab bars, and high toilet seat at home. Pt reports eager to work with PT. Pt reports being indep with ADLs at baseline/drives normally. (Maeve [phone]) is plan for transport home and she is on her way from [place]. Plan: home when medically stable with support. [facility] likely to follow, review pending. CM team will continue to follow as needed. AILEEN Mcgarry Discharge Planning/Care Management Advanced directive, confirm from FAMILY Start: 03/08/23 15:57 Freq: Q24H Status: Active Protocol: Document 03/08/23 15:57 CM (Rec: 03/08/23 15:57 CM [id number]) Advance Directive, confirm on record Time 15:57 Person contacted Pt states it is on chart Copy received Yes Copy received Yes Advanced directive available on record Yes CM Discharge Assessment Start: 03/09/23 09:03 Freq: Status: Active Protocol: Document 03/09/23 09:03 SL (Rec: 03/09/23 09:05 [id number]) Discharge Planning Assessment Assigned Field Specialist AILEEN Oliveira DPOA/Assigned Designee Name Maeve (spouse) Contact Information [phone] Advance Directives? Yes Advance Directives on File No History Provided By Patient,Family Member,Medical Record Prior Living Arrangements House Household Members spouse Type of transporation used prior to Drives own vehicle admit Independent with ADL's Yes Is patient alert and oriented? Yes DME Already Rented / Owned Elevated Toilet Seat,FWW / Walker,Cane,Other Comment grab bars/shower handles Patient/Family Preference Home with Home Health Comment Mar NEVES reviewing Discharge Plan Home Transportation Arrangement Spouse Referrals Initiated Home Health Additional Comment Mar NEVES reviewing If patient plan is home with home health Yes : Has signed face to face form been completed? Whiteboard Updated in Patient Room with Yes name and ext. # of Field Specialist Review Status In Process Next Review Type Continued Stay Review Pre-Anesthesia Assessment Start: 03/02/23 09:54 Freq: Status: Active Protocol: Document 03/02/23 09:54 [facility] (Rec: 03/02/23 10:43 CAB [id number]) Pre-Anesthesia Assessment Preferred Name Kevin Patient Information Reviewed Via Phone Assessment Assessment Completed With Patient Diagnostic Results BMP/CMP,CBC,EKG Primary Care Provider Domenica Odom Seen Specialist in Last 12 Months Yes Specialist Seen Human Resource Manager,Floating Derrick Operator, Orthopedist Comment Nephrology visit 10/19/22 & clearance form 02/22/23 scanned Primary Language Wallisian Preferred Language Wallisian Quality Coordinator Required No Height 190.5 cm Weight 117.934 kg Body Mass Index (BMI) 32.5 Hearing Ability Hearing Impaired,Use of Hearing Aid Visual Assist Glasses Dentition Type Teeth, Natural Present,Teeth, Missing Barriers to Learning Auditory Other Aids Yes: CPAP Hx Anesthesia Reactions Yes: Slow to wake up/foggy s/p microdiscectomy 2013 Hx Family Anesthesia Reaction No Hx Malignant Hyperthermia No Hx Blood Transfusions No Hx Blood Transfusion Reaction No Anesthesia Review Requested No Envelope Stamping Machine Operator No alcohol intake current alcohol intake frequency a few times a week Smoking Status Former smoker Tobacco type pipe how long ago did patient quit smoking Quit greater than 25 years ago Substance Use Type does not use Pain Present Pain Reported Musculoskeletal Symptoms Abnormal Gait,Back Pain, Difficulty Walking,Joint Pain, Muscle Cramps,Muscle Spasms, Muscle Weakness,Radiating Pain into Limb History of Falling (Recent or History of No ) Patient is completely paralyzed or No completely immobile Prosthesis or Orthotic Device Cane,Front Wheel Walker Mental Status Oriented to own ability Is patient on oxygen? No Does patient have MANZANARES/SOB No Hx Sleep Apnea Yes CPAP/BIPAP use prescribed and used routinely Will Bring CPAP/BIPAP DOS Yes Currently Taking a Beta Maritza Yes: Metoprolol Can You Climb a Flight of Stairs Without Yes SOB Hx Chest Pain No Hx SOB No Hx Syncope or Dizziness No Anti-Coagulant Therapy No Has a Public Address System Mechanic No Cardiac Testing No Hx Pacemaker/ICD No Pacemaker Rep Required? No Cardiac Clearance Received Not Applicable Diet Type At Home Regular Dysphagia No Gastrointestinal Symptoms Reflux Bladder Pattern Frequency,Retention,Urgency Urinary Catheter Present No Hx Urinary Self Catheterization No Diabetes Yes: Pt checks blood sugar once a day HgbA1C 7.8 Date 02/18/23 Hx Drug Resistant Organism No Presence of External or Internal Medical Yes: CPAP, lumbar hardware, Devices left knee prosthesis Received a COVID vaccine? Yes Received all doses? Yes Marital Status Lives With spouse Current Living Arrangements House Number of Floors (Floors) One Floor Support System Spouse Does the Patient Have Assistance After Yes: Minimal assistance from Surgery due to physicial limitations Patient Discharge Plan Description Return Home Comment Pt not advised length of stay per surgeon Additional comment Surgeon office sent email to CM for discharge concerns Feels Safe in Current Environment Yes Been Physically Hurt or Threatened By a No Person in Current Environment Do you have thoughts of harming yourself None or others? Are you currently considering suicide? No Do you have a plan to hurt yourself or No Plan others? Do You Have Any Spiritual Beliefs That No May Affect Your HC Choices? Do You Have Any Cultural Practices That No May Affect Your HC Choices? Comment Anabaptist Who Can We Speak to About Patient's Care Family, friends Identifying Code for Release of Patient Declines to issue Information Health Care Proxy/Next of Kin Alicia () Health Care Proxy cell [phone] Emergency Contact Name Alicia () Emergency Contact cell [phone] Advance Directives? Yes Advance Directives on File No Power of Real Estate Inspector Yes Power of Real Estate Inspector Name spouse - Maeve Romero Power of Real Estate Inspector PAC Instructions Bring CPAP/BIPAP,Diabetes instructions,Durable medical equipment,Medications to take/ avoid,Nasal antibiotic,No ETOH /petroleum product on skin DOS ,NPO,Pre-surgical wash,Sensory aids,Sturdy shoes/comfortable clothes,Do not bring valuables and remove jewelry
--- NOTE | 2023-03-09 10:25 | PT.IIE ---
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) Hx of foot surgery Hx of lithotripsy (~2016) Hx of microdiscectomy (~2013) Hx of tonsillectomy Medical History (Last Updated 03/02/23 @ 10:13 by Carline Blum RN) Anxiety Back pain Benign prostatic hyperplasia CKD (chronic kidney disease), stage III (~2022) COVID-19 virus infection (~09/17/21) Diabetes mellitus GE reflux Trey's deformity of left heel (~2011) Hearing impaired Hypercholesterolemia Hypertension Kidney stones Sinus congestion Sleep apnea Physical Therapy Inpatient Evaluation/Re-Eval M1 PT/OT-IP Prior Functional Status Start: 03/09/23 12:41 Freq: NEEDED Status: Active Protocol: Document 03/09/23 10:25 AB (Rec: 03/09/23 13:05 AB [id number]) Medical Review Prior Functional Status Medical History Reviewed Yes Communication able to make needs known Mobility and Gait pt stated that he was modified independent with all mobilities and ambulation without AD but started using a FWW or SPC for the last 2 months due to knee pain Activities of Daily Living and IADL's per OT note: Pt reports I with ADLs prior to sx. Pt reports that he wears slip on shoes. Prior Functional Level (Other details) per OT note: Pt was driving prior to sx. Pt has a 1 year old poodle. Social History Household Members spouse Living Arrangements House Number of Floors (Floors) One Floor Number of Stairs To Enter/Railing? Pt enters house through garage with a ramp. Pt has a rec room that has a short step with a R wall bar to descend. Home Environment High Toilet,Walk in Shower Home Equipment Front Wheel Walker,Straight Cane,Hand Held Shower,Grab Bars Near Toilet,Grab Bars In Shower Employment Status Retired Additional Social History Comment pt has his spouse to assist but spouse stated that she is limited to the amount of assisistance she can provide due to her back issues and can only stand for short periods of time M2 PT-IP Current Condition Start: 03/09/23 12:41 Freq: NEEDED Status: Active Protocol: Document 03/09/23 10:25 AB (Rec: 03/09/23 13:05 AB [email or web address]) Physical Therapy Current Condition Current Condition Evaluation Date 03/09/23 Treatment Diagnosis s/p R TKA; difficulty in walking Onset Date 03/08/23 M3 PT-IP Subjective Start: 03/09/23 12:41 Freq: NEEDED Status: Active Protocol: Document 03/09/23 10:25 AB (Rec: 03/09/23 13:05 AB [email or web address]) Subjective Physical Therapy Visit Type Type Initial Evaluation Visit Start Time 10:25 Visit Stop Time 11:30 Total Visit Minutes 65 Number of AREA RELIEF PILOT Visits 0 Physical Therapy Visit Comments Patient Comments agreeable to do PT Therapy Pain Assessment Pain When Pain Assessed At Rest Pain Present Pain Present Pain Reported Location right knee Intensity 7 Scale Used increases to 9/10 with mobility Description Spasm Pain Management Techniques Apply Cold,Distraction, Modification of Treatment,Re- positioning,Timing of Activity with Medications M4 PT-IP Mobility and Gait Start: 03/09/23 12:41 Freq: NEEDED Status: Active Protocol: Document 03/09/23 10:25 AB (Rec: 03/09/23 13:05 AB [email or web address]) PT-Bed Mobility Assessment Supine to Sit Supine to Sit Standby Assistance PT-Transfer Assessment Sit to and From Stand Sit to and from Stand Maximum Assistance,2 Person Assistance,Use of Upper Extremities Equipment Transfer Assistive Device Gait Belt,Front Wheeled Walker Transfers Transfer Destination Chair Transfer Technique Stand Step Pivot Transfer Ability Level of Assist Maximum Assistance,2 Person Assistance,Use of Upper Extremities Comments Mobility Comments pt supine in bed. pt agreed to do PT. spouse in room. PLOF and home set up obtained. post-op folder provided and reviewed with pt. educated on HEP. BP in supine: 137/66 ; HR: 51. c/o 7/10 pain on R knee/quads. pt completed supine to sit SBA. able to sit on EOB SBA. c/o dizziness. BP: 159/56 W[place] 52. completed sit to stand max A x 2 and max cues. required 2 attempts to complete task. instructed to ambulate but pt only able to take a few steps to transfer to chair max A x 2 and max cues using FWW. c/o increase knee pain 11/21. (+) R knee buckling during transfers. pt. agreed to ambulate again. completed sit to stand from the chair max A x 2 and max cues and ambulated ~ 3 ft using FWW max A x 2 and max cues. (+) R knee buckling with ambulation requiring max A for stabilizing and max cues for quads activation. pt with increase confusion towards end of ambulation and unable to follow directions. instructed pt to sit back on chair. max A for controlled descent. positioned pt on the chair. call light and table placed within reach. BP checked: 161/79 W[place] 50. informed pt and spouse regarding SNF recommendation and agreed. livestock farm manager arrived at end of PT session . informed pillowcase cutter regarding SNF recommendation. Gait Assessment Gait Gait Assistance Required: Maximum Assistance,2 Person Assist Distance (Feet) 3 Able to Maintain Weight Bearing Status Yes During Gait Assistive Devices Assistive Device Gait Belt,Front Wheeled Walker Orthotic/Prosthetic Devices or Brace: No Gait Deviations General Gait Pattern Decreased Stride Length, Decreased Feet Clearance,Step- to Gait Factors Limiting Gait Function Factors Limiting Gait Function Decreased Activity Tolerance, Decreased Strength,Difficulty Following Directions,Limited Range of Motion,Pain,Poor Balance,Poor Safety Awareness PT-Balance Assessment Sitting Balance and Reactions Static Sitting Balance Ability Good Dynamic Sitting Balance Ability Fair Standing Balance and Reactions Static Standing Balance Ability Poor Dynamic Standing Balance Ability Poor Device Used FWW M5 PT-IP Objective Assessments Start: 03/09/23 12:41 Freq: NEEDED Status: Active Protocol: Document 03/09/23 10:25 AB (Rec: 03/09/23 13:05 AB [email or web address]) Orientation Orientation/Cognition Level of Alertness Alert Orientation Name,Place,Situation Language Function Ability Hard of Hearing Safety Awareness Decreased Safety Awareness Memory Description Short Term Impaired Gross Range of Motion Lower Extremity ROM Assessment Right Impaired Impairments R knee flexion: PROM: ~ 80 deg R knee extension: ~ 10 deg less to 0 Strength Lower Extremity Strength Assessment Right Impaired Hip 3+/5 Knee 3-/5 Comments Strength Comments LLE: 4-/5 Sensation Assessment Sensation Gross Sensation WNL Muscle Tone Muscle Tone WNL Yes M6 PT-IP Treatment Start: 03/09/23 12:41 Freq: NEEDED Status: Active Protocol: Document 03/09/23 10:25 AB (Rec: 03/09/23 13:05 AB [email or web address]) Physical Therapy Treatment Exercises Exercises Heel Slides Education Education Provided Precautions,Weight Bearing Status,Post-Op Packet,Safety M7 PT-IP Assessment and Plan Start: 03/09/23 12:41 Freq: NEEDED Status: Active Protocol: Document 03/09/23 10:25 AB (Rec: 03/09/23 13:05 [email or web address]) PT Summary Assessment and Plan Potential Rehabilitation Potential Fair Status of Condition at Evaluation Evolving Summary Impairments Pain,ROM,Strength,Balance, Coordination,Sensation,Tone, Cognition,Bed Mobility, Transfers,Gait,Activity Tolerance Assessment Summary Pt is a 77 y/o M s/p R TKA POD 1. pt is WBAT. pt requiring max A x 2 for transfers and only able to ambulate ~ 3 ft using FWW max A x 2 and max cues. pt with with (+) R knee buckling with transfers and ambulation. pt lives with spouse but spouse has back issues and stated that she is limited to the amount of assistance she can provide the pt. will continue to assess progress but at this time, pt will require SNF rehab. Goals Bed Mobility Goal Independent Transfer Goal Minimal Assistance,Front Wheeled Walker Gait Goal Minimal Assistance,Front Wheel Walker Gait Distance 50 Other Goals imrpove transfers and ambulation using LRAD ~ 200 ft SBA Days to Meet Goals 10 Frequency of Treatment Frequency Of Treatment Twice a Day Treatment Plan Physical Therapy Treatment Plan Bed Mobility Training,Transfer Training,Gait Training, Therapeutic Exercise,Balance Retraining,Post Op Education, Discharge Planning,Hot or Cold Pack,Neuromuscular Re-ed, Coordination Retraining,Manual Therapy Weight Bearing Status Weight Bearing Status Weight Bear as Tolerated Allowed Weight Bearing Amount (enter % RLE WBAT or #) (%) Recommendations To Nursing Amount of Assist Needed 2 Person Assist Discharge Recommendations PT Discharge Recommendations SNF Rehab Transportation Needs at Discharge Wheelchair/Cabulance
--- NOTE | 2023-03-09 10:54 | OT.IP.EVAL ---
Current Diagnoses Bilateral primary osteoarthritis of knee (03/08/23) Surgery Performed Operation Date: 03/08/23 10:45 Actual Procedures p Total Knee Arthroplasty(Right) - Lizabeth Shen MD Past Medical History (Last Updated 03/02/23 @ 10:13 by Carline Blum, RN) Anxiety Back pain Benign prostatic hyperplasia CKD (chronic kidney disease), stage III (~2022) COVID-19 virus infection (~09/17/21) Diabetes mellitus GE reflux Trey's deformity of left heel (~2011) Hearing impaired Hypercholesterolemia Hypertension Kidney stones Sinus congestion Sleep apnea Surgical History (Last Updated 03/02/23 @ 09:59 by Carline Blum, RN) H/O: vasectomy (~1977) History of bunionectomy of right great toe (~2012) History of fusion of lumbar spine (09/20/18) History of temporal artery biopsy 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 Pt reports that he wears slip on shoes. Prior Functional Level (Other details) Pt was driving prior to sx. Pt has a 1 year old poodle. Social History Household Members spouse Living Arrangements House Number of Floors (Floors) One Floor Number of Stairs To Enter/Railing? Pt enters house through garage with a ramp. Pt has a rec room that has a short step with a railing mounted on the wall. Home Environment High Toilet,Walk in Shower Home Equipment Front Wheel Walker,Straight Cane,Hand Held Shower,Grab Bars Near Toilet,Grab Bars In Shower Employment Status Retired M2 OT-IP Current Condition Start: 03/09/23 10:22 Freq: Status: Active Protocol: Document 03/09/23 10:23 FERNANDO (Rec: 03/09/23 10:54 [facility] [id number]) Occupational Therapy Current Condition Current Condition Evaluation Date 03/09/23 Treatment Diagnosis s/p R TKA Diagnosis Onset Date 03/08/23 Weight Bearing Status Weight Bearing Status Weight Bear as Tolerated M3 OT- IP Subjective and Pain Start: 03/09/23 10:22 Freq: Status: Active Protocol: Document 03/09/23 10:23 ALANA (Rec: 03/09/23 10:54 [facility] [id number]) OT- Subjective Occupational Therapy Visit Type Type Initial Evaluation Visit Start Time 09:00 Visit Stop Time 09:45 Total Visit Minutes 45 Notes Pt is pleasant and cooperative with OT eval. Occupational Therapy Visit Comments Patient Comments Pt reported being scared to get up, but stated I'll try. Pt reports being eager to return home. Pt reports being eager to do as much for himself as possible, as he is concerned that it will be difficult on his if not. OT Pain Assessment Pain When Pain Assessed rest/tx Pain Present Pain Present Pain Reported Location right knee Intensity 7 Scale Used Numeric (0 - 10) Pain Behaviors Facial Grimacing Management Techniques Apply Cold M4 OT- IP ADL's Start: 03/09/23 10:22 Freq: Status: Active Protocol: Document 03/09/23 10:23 ALANA (Rec: 03/09/23 10:54 [facility] [id number]) OT [id number] General Evaluation Self-Feeding Ability Independent OT ADL-Grooming General Evaluation Grooming Ability Standby Assistance Comments OT Grooming Comments Pt sat EOB and OT set up necessary supplies. OT ADL-Dressing General Eval Upper Body Dressing Ability Standby Assistance Lower Body Dressing Ability Total Assistance Areas Needing Assistance Retrieving/Set-up of Clothing, Socks Comments OT Dressing Comments Pt able to don/doff hospital gown on setup. Pt required total A for socks. Pt declines AE for LB dressing at this time. OT ADL-Toileting Comments OT Toileting Comments Not observed OT ADL-Bathing Bathing Type Bathing Type Sponge Bath General Evaluation Bathing Ability Moderate Assistance Areas Needing Assistance Retrieving/Setting Up Items, Wash/Dry Back,Wash/Dry Lower Extremities Comments OT Bathing Comments Pt performs sponge bath while EOB. Pt verbalized being eager to bathe but declined attempting to get to the shower at this time. M5 OT- IP IADL's Start: 03/09/23 10:22 Freq: Status: Active Protocol: Document 03/09/23 10:23 ALANA (Rec: 03/09/23 10:54 [facility] [id number]) OT-Instrumental Activities of Daily Living Home Safety Awareness Awareness of Need for Assistance at Home Good Awareness Medication Management Medication Management No Deficits Identified Money Management Money Management No Deficits Identified Meal Preparation Meal Preparation Caregiver Provides Assist Nursing Services Manager Nursing Services Manager Caregiver Provides Assist Driving Driving Caregiver Provides Assist M6 OT- IP Functional Cognition Start: 03/09/23 10:22 Freq: Status: Active Protocol: Document 03/09/23 10:23 ALANA (Rec: 03/09/23 10:54 [facility] [id number]) Cognitive Factors Limiting Selfcare Function Cognitive Ability Level of Alertness Alert Patient Orientation Name,Date,Place,Situation Attention Span Ability Capable of Focused Attention, Capable of Sustained Attention Ability to Follow Commands Able to Follow Multi-Step Commands Memory Description No Deficits Noted Safety Awareness No Deficits Noted Problem Solving Ability No deficits Noted OT- Vision and Hearing OT- Hearing Assessment OT- Hearing Assessment WFL OT- Vision Assessment Visual Acuity WFL,Glasses For Reading M7 OT- IP Mobility and Balance Start: 03/09/23 10:22 Freq: Status: Active Protocol: Document 03/09/23 10:23 ALANA (Rec: 03/09/23 10:54 [facility] [id number]) OT- Bed Mobility Assessment Supine to Sit Supine to Sit Assist Contact Guard Assistance Sit to Supine Sit to Supine Assist Minimal Assistance Scooting Scooting to Edge of Bed Contact Guard Assistance Scooting Up and Down in Bed Contact Guard Assistance OT-Transfer Assessment Sit to and From Stand Sit to and from Stand Moderate Assistance Devices Transfer Assistive Devices Gait Belt,Front Wheeled Walker Comments Mobility Comments Pt performed sit>stand and stood EOB for approximately 3 minutes. Pt reported increased pain and requested to perform sponge bath EOB. Pt returns to sitting with min A. Pt followed vcs to extend operated LE forward while returning to sitting. Pt uses FWW during sit<>stand. OT- Balance Assessment Sitting Balance and Reactions Static Sitting Balance Ability Normal Dynamic Sitting Balance Ability Good Standing Balance and Reactions Static Standing Balance Ability Good M8 OT- IP Objective Assessments Start: 03/09/23 10:22 Freq: Status: Active Protocol: Document 03/09/23 10:23 ALANA (Rec: 03/09/23 10:54 [facility] [id number]) OT Gross Range of Motion Upper Extremity Range of Motion Assessment Within Functional Limits OT Strength Upper Extremity Strength Assessment Within Functional Limits OT-Muscle Tone Assessment Muscle Tone WNL Yes M9 OT- IP Assessment and Plan Start: 03/09/23 10:22 Freq: Status: Active Protocol: Document 03/09/23 10:23 ALANA (Rec: 03/09/23 10:54 [facility] [id number]) OT Summary Assessment and Plan Potential Rehabilitation Potential Good Analytic Complexity at Evaluation Low Summary OT Impairments Pain,Balance,Functional Mobility,Grooming,Dressing, Toileting,Bathing,Toilet Transfers,Shower Transfers, Activity Tolerance Assessment Summary Pt is 77 yo M s/p R TKA. Pt lives with his and 1 year old poodle in single story home with a ramp to enter. Pt was I/mod I with all PLOF prior to sx. Pt presents with painful R LE. Pt is pleasant , cooperative, and eager to participate in therapy with ultimate goal of d/c home with HH. Pt is appropriate for skilled OT services, to address decreased I with ADLs, functional t/fs, actiity intolerance, balance, and AE education. Goals Self-Feeding Goal Independent Grooming Goal Independent Dressing Goal Minimal Assistance Toileting Goal Independent Bathing Goal Minimal Assistance Toilet Transfer Goal Standby Assistance Shower Transfer Goal Standby Assistance Days to Meet Goals 14 Frequency of Treatment Frequency Of Treatment Once a Day Treatment Plan OT Treatment Plan ADL Training,Functional Mobility,Therapeutic Exercises ,Patient/Family Education, Discharge Planning Other Treatment Recommendations and Next AE eduation for LB dressing Treatment Focus Discharge Recommendations OT Discharge Recommendations Home,Home Health
--- NOTE | 2023-03-09 13:29 | PM.PNPO.1 ---
Subjective Subjective Interval history: Blaine is a pleasant 77 year old male who is POD#1 s/p a right TKA with Dr. Shen. is at bedside today. Reports 9/10 pain currently but states that it has been fairly well controlled with oral pain medication. Has been able to stand and transfer to a chair today, saw PT this morning and plans to have a 2nd afternoon session to evaluate if he is mobile enough to go home. No stairs at home, has walker at home already. Urinating on his own without issue. Denies chest pain, SOB, fever, chills. Exam Vital Signs (past 8 hours): - 03/09/23 08:40 03/09/23 09:25 Temperature 97.8 F Pulse Rate 53 L Respiratory Rate 16 Blood Pressure 146/69 H 146/69 H Pulse Oximetry 99 Oxygen Delivery Method Room Air Oxygen Flow Rate 0 Const General: cooperative and healthy appearing Resp Effort & Inspection: normal respiratory effort and able to speak in complete sentences Cardio Other: Extremities appear well perfused Neuro General: patient alert and patient oriented x3 Other: Sensation intact to toes bilaterally Extrem Other: 5/5 strenght with dorsi and plantar flexion Clean and dry Aquacel dressing in place over right knee. 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) History of fusion of lumbar spine (09/20/18) H/O: vasectomy (~1977) Hx of lithotripsy (~2016) Hx of microdiscectomy (~2013) Hx of foot surgery Hx of tonsillectomy History of temporal artery biopsy History of bunionectomy of right great toe (~2012) Social History household members: spouse Smoking Status: Former smoker alcohol intake: current Assessment & Plan Post-op Postoperative Procedures: Procedures Operation Date: 03/08/23 10:45 Actual Procedure Side Surgeon p Total Knee Arthroplasty Right Lizabeth Shen MD Postoperative day: 1 Postoperative status: doing well Postoperative plan narrative: 1) The patient will be maintained on a standard total knee replacement protocol with weight bearing as tolerated. 2) Continue ASA BID for DVT prophylaxis and multimodal pain management 3) Okay to be d/c to home today if good mobilization is obtained with PT, otherwise will re-evaluate tomorrow. 4) Keep dressing clean and dry, follow up at [facility] for 2 week post-op appt
[2023-03-09] MEDS: OXYCODONE IR 10 MG TABLET PO ×3 (13:42→23:02)
[2023-03-09] MEDS: polyethylene glycoL 3350 17 GM POWD.PACK PO (13:43)
--- NOTE | 2023-03-09 13:50 | PT.IPTN ---
Current Diagnoses Bilateral primary osteoarthritis of knee (03/08/23) Surgery Performed Operation Date: 03/08/23 10:45 Actual Procedures p Total Knee Arthroplasty(Right) - Lizabeth Shen MD Physical Therapy Treatment Note M2 PT-IP Current Condition Start: 03/09/23 12:41 Freq: NEEDED Status: Active Protocol: Document 03/09/23 10:25 AB (Rec: 03/09/23 13:05 AB [id number]) Physical Therapy Current Condition Current Condition Evaluation Date 03/09/23 Treatment Diagnosis s/p R TKA; difficulty in walking Onset Date 03/08/23 M3 PT-IP Subjective Start: 03/09/23 12:41 Freq: NEEDED Status: Active Protocol: Document 03/09/23 13:50 AB (Rec: 03/09/23 15:06 AB [id number]) Subjective Physical Therapy Visit Type Type Treatment Note Visit Start Time 13:50 Visit Stop Time 14:36 Total Visit Minutes 46 Number of TEEN COUNSELOR Visits 0 Physical Therapy Visit Comments Patient Comments agreeable to do PT Therapy Pain Assessment Pain When Pain Assessed At Rest Pain Present Pain Present Pain Reported Location right knee Intensity 8 Scale Used Numeric (0 - 10) Pain Management Techniques Apply Cold,Distraction, Elevation,Modification of Treatment,Re-positioning, Timing of Activity with Medications M4 PT-IP Mobility and Gait Start: 03/09/23 12:41 Freq: NEEDED Status: Active Protocol: Document 03/09/23 13:50 AB (Rec: 03/09/23 15:06 AB [id number]) PT-Bed Mobility Assessment Supine to Sit Supine to Sit Standby Assistance Sit to Supine Sit to Supine Standby Assistance PT-Transfer Assessment Sit to and From Stand Sit to and from Stand Moderate Assistance,Maximum Assistance,1 Person Assistance ,Use of Upper Extremities Equipment Transfer Assistive Device Gait Belt,Front Wheeled Walker Orthotic/Prosthetic Devices or Brace: No Transfers Transfer Technique ambulated Transfer Ability Level of Assist Maximum Assistance,1 Person Assistance,Use of Upper Extremities Comments Mobility Comments pt supine in bed. agreeable to do PT. ME: 55 bpm. O2 sat 100%. completed heel slides in bed prior to mobility. c/o increase knee pain: 10/21. completed supine to sit SBA. able to sit on EOB SBA. completed sit to stand max A and ambulated ~ 4 ft using FWW max A and max cues. (+) knee buckling x 3 requiring max A for stabilizing R knee. pt also with increase posterior trunk LOB. pt sat back on the chair. educated pt again regarding quads activation and COG alignment. pt completed sit to stand from the chair mod to max A and max cues. static standing using FWW initial mod to max A. cued for posture/positioning and able to stand min A. attempted single leg stance on RLE and pt completed x 3 attempts with 5 sec hold mod to max A and max cues. pt requested to go back to bed. sit to stand from the chair mod A and max cues and ambulated to the bed using FWW ~ 3 ft max A and max cues . (+) R knee buckling with turning and backing up. completed sit to supine SBA. completed bed exercises: heel slides, quads and glute sets. educated pt to do exercises later on for strengthening and also to get up to sit on the chair for dinner. pt agreed. positioned pt on the bed. call ligth and table placed within reach. Gait Assessment Gait Gait Assistance Required: Maximum Assistance,1 Person Assist Distance (Feet) 4 Able to Maintain Weight Bearing Status Yes During Gait Assistive Devices Assistive Device Gait Belt,Front Wheeled Walker Orthotic/Prosthetic Devices or Brace: No Gait Deviations General Gait Pattern Antalgic,Decreased Stride Length,Decreased Feet Clearance,Step-to Gait Factors Limiting Gait Function Factors Limiting Gait Function Decreased Activity Tolerance, Decreased Strength,Difficulty Following Directions,Limited Range of Motion,Pain,Poor Balance,Poor Safety Awareness M5 PT-IP Objective Assessments Start: 03/09/23 12:41 Freq: NEEDED Status: Active Protocol: Document 03/09/23 10:25 AB (Rec: 03/09/23 13:05 [id number]) Orientation Orientation/Cognition Level of Alertness Alert Orientation Name,Place,Situation Language Function Ability Hard of Hearing Safety Awareness Decreased Safety Awareness Memory Description Short Term Impaired Gross Range of Motion Lower Extremity ROM Assessment Right Impaired Impairments R knee flexion: PROM: ~ 80 deg R knee extension: ~ 10 deg less to 0 Strength Lower Extremity Strength Assessment Right Impaired Hip 3+/5 Knee 3-/5 Comments Strength Comments LLE: 4-/5 Sensation Assessment Sensation Gross Sensation WNL Muscle Tone Muscle Tone WNL Yes M6 PT-IP Treatment Start: 03/09/23 12:41 Freq: NEEDED Status: Active Protocol: Document 03/09/23 13:50 AB (Rec: 03/09/23 15:06 AB [id number]) Physical Therapy Treatment Exercises Exercises Gluteal Sets,Quad Sets,Heel Slides Education Education Provided Safety M7 PT-IP Assessment and Plan Start: 03/09/23 12:41 Freq: NEEDED Status: Active Protocol: Document 03/09/23 13:50 AB (Rec: 03/09/23 15:06 AB [id number]) PT Summary Assessment and Plan Potential Rehabilitation Potential Fair Summary Impairments Pain,ROM,Strength,Balance, Coordination,Sensation,Tone, Cognition,Bed Mobility, Transfers,Gait,Activity Tolerance Progress Towards Goals Slow Progress due to Pain,Slow Progress due to Activity Tolerance,Slow Progress - Other Assessment Summary pt continues to require max A with transfers and ambulation using FWW with (+) R knee buckling. pt's spouse has limited ability to assist pt. pt will require SNF rehab to improve overall strength and function. will continue to assess. Goals Bed Mobility Goal Independent Transfer Goal Minimal Assistance,Front Wheeled Walker Gait Goal Minimal Assistance,Front Wheel Walker Gait Distance 50 Other Goals imrpove transfers and ambulation using LRAD ~ 200 ft SBA Days to Meet Goals 10 Frequency of Treatment Frequency Of Treatment Twice a Day Treatment Plan Physical Therapy Treatment Plan Bed Mobility Training,Transfer Training,Gait Training, Therapeutic Exercise,Balance Retraining,Post Op Education, Discharge Planning,Hot or Cold Pack,Neuromuscular Re-ed, Coordination Retraining,Manual Therapy Weight Bearing Status Weight Bearing Status Weight Bear as Tolerated Allowed Weight Bearing Amount (enter % RLE WBAT or #) (%) Recommendations To Nursing Amount of Assist Needed 2 Person Assist Discharge Recommendations PT Discharge Recommendations SNF Rehab Transportation Needs at Discharge Wheelchair/Cabulance
[2023-03-09] MEDS: METOPROLOL ER 50 MG TABLET PO (16:36)
[2023-03-09] MEDS: GABAPENTIN 300 MG CAPSULE PO (19:58)
[2023-03-09] MEDS: TAMSULOSIN 0.4 MG CAPSULE PO (21:13)
[2023-03-09] MEDS: FLUTICASONE 120 SPRAY/16 GM SPRAY.SUSP NASAL (21:13)
[2023-03-09] MEDS: ATORVASTATIN 20 MG TABLET 10 MG PO (21:13)
--- NOTE | 2023-03-10 00:54 | PC.NURSE ---
Patient is alert and oriented. CABAZON with bilateral hearing aids. Breath sounds CTA with RA sat of 96%. HRR but bradycardic with rate in 50's and BP elevated at 142/76. Denied nausea. BT present and is passing flatus. Voiding per urinal and denied dysuria. Is able to reposition himself in bed. Per previous RN, patient is able to get out of bed with walker and 2 assists. Aquacel dressing to right knee is CDI; covered with nemesio. CMS is intact although having difficulty with moving leg related to increase in pain. Has been medicated with oxycodone 5mg and oxycodone 10mg as well as gabapentin and now states his pain is finally manageable again; feels he overdid with therapies. Is wearing bilateral calf SCD's. Fall risk score is high and bed alarm is activated.
[2023-03-10 01:05] VITALS: BP 118/65; PULSE 49; RESP 16; TEMP 36; O2SAT 96
[2023-03-10] MEDS: OXYCODONE IR 5 MG TABLET PO ×6 (02:03→18:44)
[2023-03-10] MEDS: ACETAMINOPHEN 325 MG TABLET 650 MG PO ×4 (03:31→21:45)
[2023-03-10 05:30] VITALS: BP 115/55; PULSE 52; RESP 16; TEMP 36.3; O2SAT 96
[2023-03-10] MEDS: ASPIRIN EC 81 MG TABLET PO ×2 (08:04→21:43)
[2023-03-10] MEDS: IBUPROFEN 400 MG TABLET PO (08:04)
[2023-03-10] MEDS: lisinopriL 20 MG TABLET PO (08:05)
[2023-03-10] MEDS: DOCUSATE 100 MG CAPSULE PO ×2 (08:05→21:43)
[2023-03-10] MEDS: METOPROLOL ER 50 MG TABLET PO (08:05)
--- NOTE | 2023-03-10 08:09 | PM.PNPO.1 ---
Subjective Subjective Date Patient Seen: 03/10/23 Time Patient Seen: 08:09 Interval history: Patient's pain is 9 to 10/10. Denies fever or chills. No nausea or vomiting. Patient states his will not be able to assist him at home at this point. Exam Vital Signs (past 8 hours): - 03/10/23 01:05 03/10/23 05:30 Temperature 96.8 F L 97.3 F L Pulse Rate 49 L 52 L Respiratory Rate 16 16 Blood Pressure 118/65 115/55 L Pulse Oximetry 96 96 Oxygen Flow Rate 0 0 Oxygen Delivery Method Room Air,CPAP Oxygen Flow Rate 0 Narrative Exam Narrative: 77-year-old male resting comfortably in bed in no apparent distress. Moderate amount of swelling generally about the right knee. No erythema. Dressing is Clean, dry, intact.. Calf is soft and nontender. Motor functions intact bilateral lower extremities. Sensation grossly intact to light touch bilateral lower extremities. 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) History of fusion of lumbar spine (09/20/18) H/O: vasectomy (~1977) Hx of lithotripsy (~2016) Hx of microdiscectomy (~2013) Hx of foot surgery Hx of tonsillectomy History of temporal artery biopsy History of bunionectomy of right great toe (~2012) Social History household members: spouse Smoking Status: Former smoker alcohol intake: current Assessment & Plan Post-op Postoperative Procedures: Procedures Operation Date: 03/08/23 10:45 Actual Procedure Side Surgeon p Total Knee Arthroplasty Right Lizabeth Shen, MD Postoperative day: 2 Postoperative status: doing well and marginal pain control Postoperative status narrative: Status post right total knee arthroplasty March 08, 2023 Postoperative plan: routine post-op care Postoperative plan narrative: Standard total knee replacement protocol with weight-bearing as tolerated Aspirin 81 mg b.i.d. for DVT prophylaxis Multimodal pain management Disposition, patient currently 2 person assist and will be unable to assist him at this point, plan is to discharge to sound you tomorrow.
--- NOTE | 2023-03-10 08:12 | CM.DPC ---
Addendum entered by Sona Reynaga R.N. 03/10/23 15:30: Spoke to Michelle, corrected some items on PASSR, refaxed. Addendum entered by Sona Reynaga R.N. 03/10/23 13:52: Updated La in intake at [facility] that patient is going to [facility]. Addendum entered by Sona Reynaga R.N. 03/10/23 13:51: Faxed PASSR over to [facility], since he will be exempted, had Kasi Jacobson sign PASSR. Original Note: DCP Cont: Met with patient in his room, he was sitting up in bed, introduced self and role. Confirmed with him that he does want to go to [facility], would be eligible by tomorrow. Updated BRIT Moreno, who is currently seeing patient. Called over at [facility] and spoke to Harriet in admissions, is expecting patient tomorrow. Patient will work with P.T. again today. P: DCP to continue to follow. Plan at this time is for patient to go to [facility] tomorrow. Will complete PASSR. Sona Reynaga RN/Personal Protection Specialist
--- NOTE | 2023-03-10 08:45 | OT.IP.TRT ---
Current Diagnoses Bilateral primary osteoarthritis of knee (03/08/23) Surgery Performed Operation Date: 03/08/23 10:45 Actual Procedures p Total Knee Arthroplasty(Right) - Lizabeth Shen MD Occupational Therapy Treatment Note M2 OT-IP Current Condition Start: 03/09/23 10:22 Freq: Status: Active Protocol: Document 03/09/23 10:23 ALANA (Rec: 03/09/23 10:54 [email or web address] [id number]) Occupational Therapy Current Condition Current Condition Evaluation Date 03/09/23 Treatment Diagnosis s/p R TKA Diagnosis Onset Date 03/08/23 Weight Bearing Status Weight Bearing Status Weight Bear as Tolerated M3 OT- IP Subjective and Pain Start: 03/09/23 10:22 Freq: Status: Active Protocol: Document 03/10/23 08:45 CCC (Rec: 03/10/23 10:09 [facility] [id number]) OT- Subjective Occupational Therapy Visit Type Type Treatment Note Visit Start Time 08:45 Visit Stop Time 09:00 Occupational Therapy Visit Comments Patient Comments Pt willing to get up and try to sit on the commode. Patient/Caregiver Goals To go to skilled rehab. OT Pain Assessment Pain When Pain Assessed At Rest Pain Present Pain Present Pain Reported Location right knee Intensity 6 Scale Used Numeric (0 - 10) M4 OT- IP ADL's Start: 03/09/23 10:22 Freq: Status: Active Protocol: Document 03/10/23 08:45 [facility] (Rec: 03/10/23 10:09 [facility] [id number]) OT [id number] General Evaluation Self-Feeding Ability Independent OT ADL-Grooming Comments OT Grooming Comments Pt states to do later. OT ADL-Dressing General Eval Lower Body Dressing Ability Total Assistance Comments OT Dressing Comments Able to show pt AE for LB dressing needs. Pt able to jen/doff the gown. OT ADL-Toileting Comments OT Toileting Comments Pt not having to go at this time. Pt able to try to sit on the BSC. OT ADL-Bathing Bathing Type Bathing Type Sponge Bath General Evaluation Bathing Ability Moderate Assistance Areas Needing Assistance Retrieving/Setting Up Items, Wash/Dry Back,Wash/Dry Lower Extremities Comments OT Bathing Comments Pt able to sponge off while seated on the BSC. M5 OT- IP IADL's Start: 03/09/23 10:22 Freq: Status: Active Protocol: Document 03/09/23 10:23 [facility] (Rec: 03/09/23 10:54 [facility] [id number]) OT-Instrumental Activities of Daily Living Home Safety Awareness Awareness of Need for Assistance at Home Good Awareness Medication Management Medication Management No Deficits Identified Money Management Money Management No Deficits Identified Meal Preparation Meal Preparation Caregiver Provides Assist Tow Car Driver Tow Car Driver Caregiver Provides Assist Driving Driving Caregiver Provides Assist M6 OT- IP Functional Cognition Start: 03/09/23 10:22 Freq: Status: Active Protocol: Document 03/10/23 08:45 [facility] (Rec: 03/10/23 10:09 [facility] [id number]) Cognitive Factors Limiting Selfcare Function Cognitive Comments Cognitive Assessment Comments Intact M7 OT- IP Mobility and Balance Start: 03/09/23 10:22 Freq: Status: Active Protocol: Document 03/10/23 08:45 [facility] (Rec: 03/10/23 10:09 [facility] [id number]) OT- Bed Mobility Assessment Supine to Sit Supine to Sit Assist Contact Guard Assistance OT-Transfer Assessment Sit to and From Stand Sit to and from Stand Minimal Assistance,1 Person Assistance,2 Person Assistance Devices Transfer Assistive Devices Gait Belt,Front Wheeled Walker Comments Mobility Comments CGA to assist to get his RLE to the edge of the bed. JOHN 1 -2 to stand and from the transfer to the [facility] [place] [place] and the high recliner. OT- Balance Assessment Sitting Balance and Reactions Static Sitting Balance Ability Normal Dynamic Sitting Balance Ability Good Standing Balance and Reactions Static Standing Balance Ability Good Dynamic Standing Balance Ability Fair M8 OT- IP Objective Assessments Start: 03/09/23 10:22 Freq: Status: Active Protocol: Document 03/09/23 10:23 [email or web address] (Rec: 03/09/23 10:54 [facility] [id number]) OT Gross Range of Motion Upper Extremity Range of Motion Assessment Within Functional Limits OT Strength Upper Extremity Strength Assessment Within Functional Limits OT-Muscle Tone Assessment Muscle Tone WNL Yes M9 OT- IP Assessment and Plan Start: 03/09/23 10:22 Freq: Status: Active Protocol: Document 03/10/23 08:45 [facility] (Rec: 03/10/23 10:09 [facility] [id number]) OT Summary Assessment and Plan Potential Rehabilitation Potential Good Analytic Complexity at Evaluation Low Summary OT Impairments Pain,Balance,Functional Mobility,Grooming,Dressing, Toileting,Bathing,Toilet Transfers,Shower Transfers, Activity Tolerance Progress Towards Goals Progressing Toward Goals Assessment Summary Pt moving better for mobility needs and able to participate in sponging off and trial to sit on the BSC today. Pt looking to go to skilled rehab tomorrow. Goals Self-Feeding Goal Independent Grooming Goal Independent Dressing Goal Minimal Assistance Toileting Goal Independent Bathing Goal Minimal Assistance Toilet Transfer Goal Independent Shower Transfer Goal Standby Assistance Days to Meet Goals 13 Frequency of Treatment Frequency Of Treatment Once a Day Treatment Plan OT Treatment Plan ADL Training,Functional Mobility,Therapeutic Exercises ,Patient/Family Education, Discharge Planning Other Treatment Recommendations and Next shower Treatment Focus Discharge Recommendations OT Discharge Recommendations SNF Rehab
[2023-03-10] MEDS: SODIUM CHLORIDE 0.9% FLUSH 10 ML IV ×2 (08:52→21:44)
--- NOTE | 2023-03-10 10:15 | PT.IPTN ---
Current Diagnoses Bilateral primary osteoarthritis of knee (03/08/23) Surgery Performed Operation Date: 03/08/23 10:45 Actual Procedures p Total Knee Arthroplasty(Right) - Lizabeth Shen MD Physical Therapy Treatment Note M2 PT-IP Current Condition Start: 03/09/23 12:41 Freq: NEEDED Status: Active Protocol: Document 03/09/23 10:25 AB (Rec: 03/09/23 13:05 AB [id number]) Physical Therapy Current Condition Current Condition Evaluation Date 03/09/23 Treatment Diagnosis s/p R TKA; difficulty in walking Onset Date 03/08/23 M3 PT-IP Subjective Start: 03/09/23 12:41 Freq: NEEDED Status: Active Protocol: Document 03/10/23 08:45 MB (Rec: 03/10/23 10:15 MB [id number]) Subjective Physical Therapy Visit Type Type Treatment Note Visit Start Time 08:45 Visit Stop Time 09:15 Total Visit Minutes 30 Number of FINAL TOUCH UP PAINTER Visits 0 Physical Therapy Visit Comments Patient Comments Pt is agreeable to PT, states yesterday was tough and that he did not sleep well. Therapy Pain Assessment Pain When Pain Assessed At Rest Pain Present Pain Present Pain Reported Location right knee Intensity 6 Scale Used Numeric (0 - 10) Pain Management Techniques Apply Cold,Apply Heat, Distraction,Elevation, Modification of Treatment,Re- positioning,Timing of Activity with Medications M4 PT-IP Mobility and Gait Start: 03/09/23 12:41 Freq: NEEDED Status: Active Protocol: Document 03/10/23 08:45 MB (Rec: 03/10/23 10:15 MB [id number]) PT-Bed Mobility Assessment Supine to Sit Supine to Sit Standby Assistance,1 Person Assistance,Head of Bed Elevated,Bedrails Scooting Scooting to Edge of Bed Standby Assistance PT-Transfer Assessment Sit to and From Stand Sit to and from Stand Minimal Assistance,1 Person Assistance,2 Person Assistance ,Use of Upper Extremities Equipment Transfer Assistive Device Gait Belt,Front Wheeled Walker Orthotic/Prosthetic Devices or Brace: No Transfers Transfer Destination Chair,Bedside Commode Transfer Technique Stepping Transfer Ability Level of Assist Minimal Assistance,1 Person Assistance,2 Person Assistance ,Use of Upper Extremities Comments Mobility Comments PT places gait belt around pt' s right foot so that he can use it to assist with getting to EOB. Pt requires +2 min A initially for safety d/t notes about right knee buckling last date and then +1 min A for transfers with RW. Gait Assessment Gait Gait Assistance Required: Minimum Assistance,1 Person Assist,2 Person Assist Distance (Feet) 2 Able to Maintain Weight Bearing Status Yes During Gait Assistive Devices Assistive Device Gait Belt,Front Wheeled Walker Orthotic/Prosthetic Devices or Brace: No Gait Deviations General Gait Pattern Antalgic,Decreased Stride Length,Decreased Feet Clearance,Step-to Gait Factors Limiting Gait Function Factors Limiting Gait Function Decreased Activity Tolerance, Decreased Strength,Pain,Poor Balance,Poor Safety Awareness Comments Gait Comments PT checks right quad strength before standing and pt's strength is no more than 2+/5. Since this is the case, 2 person assistance available for first transfer and stepping to BSC with RW. Pt does well with cues for step- to movement and then +1 min A with RW for stepping. PT ed pt to scoot right foot out in front before transfer. R knee con't to buckle with gait and pt has decreased WB through the leg. Step to bed to BSC and then BSC to chair. PT-Balance Assessment Sitting Balance and Reactions Static Sitting Balance Ability Good Dynamic Sitting Balance Ability Good Standing Balance and Reactions Static Standing Balance Ability Fair Dynamic Standing Balance Ability Fair Device Used FWW M5 PT-IP Objective Assessments Start: 03/09/23 12:41 Freq: NEEDED Status: Active Protocol: Document 03/10/23 08:45 MB (Rec: 03/10/23 10:15 MB [id number]) Gross Range of Motion Lower Extremity ROM Impairments R knee PROM with sitting reaches 80-85 deg flexion with passive flexion with sitting. Knee extension only 10 deg in sitting (-70 deg) from flexed position in sitting and is - 10 deg in supine with leg straight and knee to ceiling. M6 PT-IP Treatment Start: 03/09/23 12:41 Freq: NEEDED Status: Active Protocol: Document 03/10/23 08:45 MB (Rec: 03/10/23 10:15 MB [id number]) Physical Therapy Treatment Exercises Exercises Ankle Pumps,Gluteal Sets,Quad Sets,Heel Slides,Supine Hip Abduction Education Education Provided Safety Other Treatments Other Treatment Performed PT provides assistance to hold leg with hip abduction and HS with pt only flexing knee about 20-30 deg in supine. Decreased quad contraction in supine. 10 reps all exercises. Left pt up in chair with towel under right foot for him to work on knee extension and flexion in sitting. M7 PT-IP Assessment and Plan Start: 03/09/23 12:41 Freq: NEEDED Status: Active Protocol: Document 03/10/23 08:45 MB (Rec: 03/10/23 10:15 MB [id number]) PT Summary Assessment and Plan Potential Rehabilitation Potential Good Status of Condition at Evaluation Evolving Summary Impairments Pain,ROM,Strength,Balance, Coordination,Sensation,Tone, Cognition,Bed Mobility, Transfers,Gait,Activity Tolerance Progress Towards Goals Slow Progress due to Pain,Slow Progress due to Activity Tolerance,Slow Progress - Other Assessment Summary Pt is making slow progress with mobility today. He con't to have severely weak knee extension and decreased ROM, high pain and edema. His right LE is warm and the edema is mildly pitting around the knee joint and his veins are quite distended in his calf. ? if vascular check is appropriate at this time given profound extensor weakness post-op with knee buckling 2 days after surgery, high pain and ongoing edema. Goals Bed Mobility Goal Independent Transfer Goal Minimal Assistance,Front Wheeled Walker Gait Goal Minimal Assistance,Front Wheel Walker Gait Distance 50 Other Goals imrpove transfers and ambulation using LRAD ~ 200 ft SBA Days to Meet Goals 10 Frequency of Treatment Frequency Of Treatment Twice a Day Treatment Plan Physical Therapy Treatment Plan Bed Mobility Training,Transfer Training,Gait Training, Therapeutic Exercise,Balance Retraining,Post Op Education, Discharge Planning,Hot or Cold Pack,Neuromuscular Re-ed, Coordination Retraining,Manual Therapy Weight Bearing Status Weight Bearing Status Weight Bear as Tolerated Allowed Weight Bearing Amount (enter % RLE WBAT or #) (%) Recommendations To Nursing Amount of Assist Needed 1 Person Assist Discharge Recommendations PT Discharge Recommendations SNF Rehab Transportation Needs at Discharge Wheelchair/Cabulance
[2023-03-10 12:00] VITALS: BP 118/62; PULSE 78; RESP 18; TEMP 36.2; O2SAT 97
[2023-03-10] MEDS: INSULIN LISPRO 100 UNIT/ML 3ML VIAL SUBCUT ×2 (12:08→17:16)
[2023-03-10 13:46] VITALS: BP 118/62; PULSE 78; RESP 18; TEMP 36.2; O2SAT 97
--- NOTE | 2023-03-10 14:19 | DIET.CONS ---
Dietary Consultation Note Admission Date: 03/08/2023 08:15 Assessment: 77M s/p right TKA. RD consulted for diabetic control Blaine reports he and his have made dramatic diet changes just prior to sx. States he cut out most carbs. Is aware of protein recommendations as well given CKD, GFR 41. BG have been well managed since admission with diet of 45g carbs and SSI. Home glipizide held. Reports most hgA1c results have been 7-7.2%, most recent here elevated at 7.8%. Reports usual large portions of food. Three meals, no snacks daily. Checks home BG, 120-130s. unaware of DM ed benefits under MCR. Ht: 190.5 cm Wt: 117.934 kg BMI: 32.5 Last BM: 03/08/23 (03/08/23 15:48) MNA: 14 Joni Score: 21 Diet: 03/08/23 Lunch Carbohydrate Consistent Diet Diet Modifications: Carbohydrate level: Medium (3 CHO) Reflex DM orders: Yes Food Texture: Level 7 - Regular Liquid Consistency: Level 0 - Thin Nutrition Percent Meal Consumed 100% 03/10/23 13:47 Percent Meal Consumed 100% 03/10/23 12:37 Percent Meal Consumed 100% 03/10/23 09:00 Percent Meal Consumed 100% 03/09/23 18:00 Percent Meal Consumed 100% 03/09/23 10:58 Percent Meal Consumed 100% 03/08/23 17:13 Labs: Hgb 12.8 g/dL (13.5-17.5) L 03/09/23 05:05 Hct 38.6 % (41-53) L 03/09/23 05:05 Nutrition Diagnosis: Nutrition and food related knowledge deficit r/t no previous MNT or DSME aeb pt report and HgA1c of 7.8% Interventions: Diabetes ed: - small freq meals - sticking to 45g CHO - Protein recs for CKD - Hydration recs - BG linked to healing and infection risk - DM education benefits under MCR - Resources for OP DM education EER: 45g CHO per meal Monitoring/Evaluations: Rec OP f/u. Consult prn. Electronically Signed by: Nubia Dahl 03/10/23 14:19 Clinical Dietitian [address] [id number]
[2023-03-10] MEDS: polyethylene glycoL 3350 17 GM POWD.PACK PO (15:50)
--- NOTE | 2023-03-10 17:02 | PT.IPTN ---
Current Diagnoses Bilateral primary osteoarthritis of knee (03/08/23) Surgery Performed Operation Date: 03/08/23 10:45 Actual Procedures p Total Knee Arthroplasty(Right) - Lizabeth Shen MD Physical Therapy Treatment Note M2 PT-IP Current Condition Start: 03/09/23 12:41 Freq: NEEDED Status: Active Protocol: Document 03/09/23 10:25 AB (Rec: 03/09/23 13:05 AB [id number]) Physical Therapy Current Condition Current Condition Evaluation Date 03/09/23 Treatment Diagnosis s/p R TKA; difficulty in walking Onset Date 03/08/23 M3 PT-IP Subjective Start: 03/09/23 12:41 Freq: NEEDED Status: Active Protocol: Document 03/10/23 16:33 MB (Rec: 03/10/23 17:01 MB [id number]) Subjective Physical Therapy Visit Type Type Treatment Note Visit Start Time 16:33 Visit Stop Time 16:56 Total Visit Minutes 23 Number of FIRE SPRINKLER SERVICE TECHNICIAN Visits 0 Physical Therapy Visit Comments Patient Comments A little better. When PT asks pt how he is doing this afternoon. Pt sat up a long time earlier today. Therapy Pain Assessment Pain When Pain Assessed During Mobility Pain Present Pain Present Pain Reported Location right knee Intensity 4 Scale Used Maher-Whitley (Faces) Pain Management Techniques Distraction,Re-positioning, Timing of Activity with Medications M4 PT-IP Mobility and Gait Start: 03/09/23 12:41 Freq: NEEDED Status: Active Protocol: Document 03/10/23 16:33 MB (Rec: 03/10/23 17:01 MB [id number]) PT-Bed Mobility Assessment Supine to Sit Supine to Sit Standby Assistance,1 Person Assistance,Head of Bed Elevated,Bedrails Scooting Scooting to Edge of Bed Standby Assistance PT-Transfer Assessment Sit to and From Stand Sit to and from Stand Contact Guard Assistance,1 Person Assistance,Use of Upper Extremities Equipment Transfer Assistive Device Gait Belt,Front Wheeled Walker Orthotic/Prosthetic Devices or Brace: No Transfers Transfer Destination Chair,Bedside Commode Transfer Technique Stepping Transfer Ability Level of Assist Contact Guard Assistance,1 Person Assistance,Use of Upper Extremities Comments Mobility Comments Pt uses gait belt around right foot after PT places it there to help scoot right leg out to the side of the bed. Gait Assessment Gait Gait Assistance Required: Contact Guard Assist,1 Person Assist Distance (Feet) 5 Able to Maintain Weight Bearing Status Yes During Gait Assistive Devices Assistive Device Gait Belt,Front Wheeled Walker Orthotic/Prosthetic Devices or Brace: No Gait Deviations General Gait Pattern Antalgic,Decreased Stride Length,Decreased Feet Clearance,Step-to Gait Factors Limiting Gait Function Factors Limiting Gait Function Decreased Activity Tolerance, Decreased Strength,Pain,Poor Balance Comments Gait Comments Right quad strength is the same as the morning: no greater than 2+/5 in sitting with trace to minimal knee extension in sitting EOB. Ongoing right leg buckling with WB and unable to left left foot off the floor in standing with heavy UE support on RW. PT-Balance Assessment Sitting Balance and Reactions Static Sitting Balance Ability Good Dynamic Sitting Balance Ability Good Standing Balance and Reactions Static Standing Balance Ability Fair Dynamic Standing Balance Ability Fair Device Used FWW M5 PT-IP Objective Assessments Start: 03/09/23 12:41 Freq: NEEDED Status: Active Protocol: Document 03/10/23 08:45 MB (Rec: 03/10/23 10:15 MB [id number]) Gross Range of Motion Lower Extremity ROM Impairments R knee PROM with sitting reaches 80-85 deg flexion with passive flexion with sitting. Knee extension only 10 deg in sitting (-70 deg) from flexed position in sitting and is - 10 deg in supine with leg straight and knee to ceiling. M6 PT-IP Treatment Start: 03/09/23 12:41 Freq: NEEDED Status: Active Protocol: Document 03/10/23 16:33 MB (Rec: 03/10/23 17:01 MB [id number]) Physical Therapy Treatment Exercises Exercises Ankle Pumps,Gluteal Sets,Quad Sets,Heel Slides,Supine Hip Abduction Education Education Provided Safety Other Treatments Other Treatment Performed PT provides assistance to hold leg with hip abduction and HS with pt flexing knee 30 deg in supine. Decreased quad contraction in supine. 10 reps all exercises. Left pt up in chair with towel under right foot for him to work on knee extension and flexion in sitting. M7 PT-IP Assessment and Plan Start: 03/09/23 12:41 Freq: NEEDED Status: Active Protocol: Document 03/10/23 16:33 MB (Rec: 03/10/23 17:01 MB [id number]) PT Summary Assessment and Plan Potential Rehabilitation Potential Good Status of Condition at Evaluation Evolving Summary Impairments Pain,ROM,Strength,Balance, Coordination,Sensation,Tone, Cognition,Bed Mobility, Transfers,Gait,Activity Tolerance Progress Towards Goals Slow Progress due to Pain,Slow Progress due to Activity Tolerance,Slow Progress - Other Assessment Summary Pt with ongoing right quad weakness/trace functional contraction and buckling with WB with stepping. Forward and backward stepping 5'x2 with RW today. Standing balance in RW with CGA and left UE support on walker and pt breathing into incentive spirometer x10. Goals Bed Mobility Goal Independent Transfer Goal Minimal Assistance,Front Wheeled Walker Gait Goal Minimal Assistance,Front Wheel Walker Gait Distance 50 Other Goals imrpove transfers and ambulation using LRAD ~ 200 ft SBA Days to Meet Goals 10 Frequency of Treatment Frequency Of Treatment Twice a Day Treatment Plan Physical Therapy Treatment Plan Bed Mobility Training,Transfer Training,Gait Training, Therapeutic Exercise,Balance Retraining,Post Op Education, Discharge Planning,Hot or Cold Pack,Neuromuscular Re-ed, Coordination Retraining,Manual Therapy Weight Bearing Status Weight Bearing Status Weight Bear as Tolerated Allowed Weight Bearing Amount (enter % RLE WBAT or #) (%) Recommendations To Nursing Amount of Assist Needed 1 Person Assist Discharge Recommendations PT Discharge Recommendations SNF Rehab Transportation Needs at Discharge Wheelchair/Cabulance
[2023-03-10 20:00] VITALS: BP 137/64; PULSE 63; RESP 17; TEMP 36.2; O2SAT 95
[2023-03-10] MEDS: ATORVASTATIN 20 MG TABLET 10 MG PO (21:42)
[2023-03-10] MEDS: FLUTICASONE 120 SPRAY/16 GM SPRAY.SUSP NASAL (21:42)
[2023-03-10] MEDS: TAMSULOSIN 0.4 MG CAPSULE PO (21:42)
[2023-03-11 02:00] VITALS: BP 136/70; PULSE 72; RESP 16; TEMP 36.7; O2SAT 96
[2023-03-11] MEDS: ACETAMINOPHEN 325 MG TABLET 650 MG PO ×2 (05:11→08:36)
--- NOTE | 2023-03-11 06:58 | PM.DS.1 ---
History of Present Illness History of Present Illness Date Patient Seen: 03/11/23 Time Patient Seen: 06:58 Chief complaint: INPT Narrative: Operative Date/Time/Diagnoses Date of procedure: 03/08/23 Time of procedure: 11:20 Pre-op diagnosis: right knee OA Post-op diagnosis: same Procedure & Clinicians Procedure: Right total knee arthroplasty Same procedure as scheduled: Yes Indications: The patient has had progressively worsening right knee pain with radiographic changes consistent with arthritis. Non-operative management has failed and the patient has requested total knee replacement. The risks, benefits and alternatives to surgery were discussed with the patient prior to proceeding. Risks discussed included, but were not limited to, failure to relieve pain, stiffness, infection, nerve damage, deep venous thrombosis, pulmonary embolism, stroke, coma, heart attack, permanent paralysis and , as well as the potential need for eventual revision of the prosthetic. Surgeon: Lizabeth Shen Dyeing Machine Feeder: Lashawn Napier Anesthesia Type: General, Spinal and Peripheral nerve block Operative Notes Findings: Severe right knee osteoarthritis, significant synovitis Closure Type: primary Specimen(s): none sent Prosthetic devices, grafts, tissues, transplants, or devices: Shen and nephgage larios BCS 2 size 8 femur, size 7 tibia, +9 poly, 38 oval patella Estimated Blood Loss (mL): 250 Blood products transfused: none Tourniquet time (min): 90 Discharge Providers Provider Date of admission: 03/08/23 08:15 Discharge Date: 03/11/23 Primary care physician: Domenica Odom PA-C Consults: 03/08/23 14:05 Consult to Home Health Routine Comment: Reason For Exam: RN/PT 03/08/23 15:36 Consult to Dietitian, Adult Routine Comment: Reason For Exam: diabetic control Consult to Discharge Planning Routine Comment: Consult to Occupational Therapy Evaluate & Treat Comment: Physician Instructions: Evaluate and treat Consult to Physical Therapy Evaluate & Treat Comment: Physician Instructions: postop TKA protocol Discharge provider: Deya Mejia PA-C Summary Hospital Course Discharge Diagnosis: Right knee osteoarthritis, s/p right total knee arthroplasty Hospital Course: Mr Romero's hospital course was significant for poor pain control and slow progress w/ PT. Because of the latter, it was felt he should go to SNF for further work w/ rehab prior to going home. On POD# 3, he was eating and voiding without difficulty and his pain was well-controlled w/ oral medication. He c/o inability to walk across the room by himself d/t lack of strength. Exam Vital Signs (past 8 hours): - 03/11/23 02:00 Temperature 98.0 F Pulse Rate 72 Respiratory Rate 16 Blood Pressure 136/70 Pulse Oximetry 96 Oxygen Flow Rate 0 Oxygen Delivery Method Room Air,CPAP Oxygen Flow Rate 0 Narrative Exam Narrative: 5/5 strength in hip flexors, quadriceps, hamstrings, DF, PF, EHL on right. Sensation to light touch intact throughout RLE. Calf soft, compressible, nontender. Lateral knee is moderately swollen and warm; pt assured this is normal following recent surgery. Aquacel dressing w/ minimal bloody drainage at proximal portion; otherwise intact. 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) History of fusion of lumbar spine (09/20/18) H/O: vasectomy (~1977) Hx of lithotripsy (~2016) Hx of microdiscectomy (~2013) Hx of foot surgery Hx of tonsillectomy History of temporal artery biopsy History of bunionectomy of right great toe (~2012) Social History household members: spouse Smoking Status: Former smoker alcohol intake: current Discharge Assessment & Plan Assessment and Plan Assessment: Right knee osteoarthritis, s/p right total knee arthroplasty Plan of Treatment: Discharge to [facility] today, multimodal pain control, f/u in office in 2 weeks as scheduled, ASA BID for VTE prophylaxis. Discharge Plan Discharge Plan Patient Disposition: SNF Transfer to: [facility] Rehabilitation and Healthcare Provider Discharge Comment: Follow up at [facility] on 03/22/23 at 2:30pm. Continue to work on mobilization with home PT Discharge orders & Medications Prescriptions: New docusate sodium 100 mg Capsule 100 mg PO BID PRN (Reason: constipation) Qty: 30 0RF oxycodone 5 mg Tablet 5 mg PO Q4-6H PRN (Reason: Pain, Moderate (4-6)) Qty: 30 0RF acetaminophen 325 mg Tablet 650 mg PO Q6H Qty: 60 0RF aspirin 81 mg Tablet,Delayed Release (Dr/Ec) 81 mg PO BID Qty: 120 0RF ibuprofen 400 mg Tablet 400 mg PO Q4H Qty: 90 0RF oxycodone 5 mg tablet 5 mg PO Q4-6H PRN (Reason: pain (scale score 7-10)) Qty: 60 0RF Continued tamsulosin 0.4 mg Capsule 0.4 mg PO BEDTIME gabapentin 300 mg Capsule 300 mg PO TID PRN (Reason: Pain) Flonase Sensimist 27.5 mcg/actuation [place],Suspension 1 spray Intranasal BID Pepcid Complete 10-800-165 mg Tablet,Chewable 1 tab PO DAILY PRN (Reason: GI Upset) metoprolol succinate 50 mg Tablet Extended Release 24 Hr 50 mg PO DAILY lisinopril 20 mg Tablet 20 mg PO DAILY glipizide 2.5 mg Tablet Extended Release 24hr 2.5 mg PO DAILY simvastatin 20 mg Tablet 20 mg PO BEDTIME Follow up/Referrals: Domenica Odom PA-C [Primary Care Provider] - Diet/Activity/Treatments Diet: Diet as Tolerated Activity: Weight bearing as tolerated. Cold/Heat Therapy: Ice as needed for pain. Skin/Wound/Dressing Care Report to your healthcare provider any signs of infection, such as:: chills, fever, night sweats, increased pain, unusual drainage and unusual redness Dressing: Keep dressing clean and dry. If dressing becomes saturated okay to remove and replace with clean and dry gauze. Visit Report/Discharge Packet Instructions: DI for Knee Replacement, DI for Prescription Opioid Use Stand Alone Forms: Patient Portal/API, Stroke Signs & Symptoms, Surgery Discharge Discharge Data Primary Care Provider: Domenica Odom
[2023-03-11 08:22] VITALS: BP 120/56; PULSE 63; RESP 19; TEMP 36.5; O2SAT 97
[2023-03-11 08:32] VITALS: BP 120/56; PULSE 63
[2023-03-11] MEDS: polyethylene glycoL 3350 17 GM POWD.PACK PO (08:32)
[2023-03-11] MEDS: lisinopriL 20 MG TABLET PO (08:32)
--- NOTE | 2023-03-11 08:33 | CM.DPC ---
DCP Discharge SNF Per ORtho PA, pt medically stable to d/c to SNF today and no identified barriers to discharge. NAYANA called [facility] admissions and left msg regarding discharge today and requested return call for time they can transport. NAYANA faxed d/c summ, PASRR, signed med list, script, and MD orders to [facility] to review. NAYANA updated CHARGE MACHINE OPERATOR, forming machine upkeep mechanic, and RN and provided number to call report. Plan: Patient to d/c to [facility] today via facility w/c van and awaiting confirmation of time for today. Stacy Hui MSW
[2023-03-11 08:36] VITALS: BP 120/56; PULSE 63
[2023-03-11] MEDS: ASPIRIN EC 81 MG TABLET PO (08:36)
[2023-03-11] MEDS: METOPROLOL ER 50 MG TABLET PO (08:36)
[2023-03-11] MEDS: DOCUSATE 100 MG CAPSULE PO (08:36)
[2023-03-11] MEDS: SODIUM CHLORIDE 0.9% FLUSH 10 ML IV (08:37)
[2023-03-11] MEDS: OXYCODONE IR 5 MG TABLET PO (10:52)
== END 2023-03-11 12:13 | DRG 470 ==
PROVIDERS: Admitting Provider Orthopaedic Surgery; PCP Physician Assistant Medical; Referring Provider Orthopaedic Surgery; Visit Provider Orthopaedic Surgery
PROC: 0SRC0JZ Replacement of Right Knee Joint with Synthetic Substitute, Open Approach (ICD-10-PCS; CPT 27447; principal; 2023-03-08 10:45)
DX: M17.11 Unilateral primary osteoarthritis, right knee (principal); M65.861 Other synovitis and tenosynovitis, right lower leg; G89.18 Other acute postprocedural pain; N40.0 Benign prostatic hyperplasia without lower urinary tract symptoms; I10 Essential (primary) hypertension; E78.00 Pure hypercholesterolemia, unspecified; E11.9 Type 2 diabetes mellitus without complications; G47.30 Sleep apnea, unspecified; Z79.84 Long term (current) use of oral hypoglycemic drugs; Z87.891 Personal history of nicotine dependence
CPT/HCPCS: 36415; 64450; 73560; 82962; 85014; 85018; 97110; 97116; 97162; 97165; 97530; 97535; C1776; C9290; J0171; J0690; J1100; J1815; J1885; J2250; J2405; J2704; J3010

== ENCOUNTER → 2023-11-01 14:56 | Outpatient (CLI) | payer MEDICARE, OTHER, SELFPAY ==
[2023-03-08 15:48] VITALS: BMI 32.5
--- NOTE | 2023-11-01 | DI.RAD.S_ITS ---
PROCEDURE: XR TOE LT MIN 2V INDICATIONS: Other acute osteomyelitis, left ankle and foot TECHNIQUE: 3 views of the 2nd toe(s) acquired. COMPARISON: None. FINDINGS: Bones: No fractures or dislocations. There is a subtle thinning of the distal cortex of the 2nd distal phalanx, beneath an area of soft tissue irregularity likely indicating site of soft tissue ulceration. Soft tissues: No suspicious soft tissue densities. IMPRESSION: Definite osteomyelitis is not found but there is a subtle finding of thinning of the far peripheral cortex of the 2nd distal phalanx tuft, beneath an area of mild soft tissue irregularity presumably representing a site of soft tissue ulceration. This can represent a very early manifestation of osteomyelitis and follow-up appears warranted. Dictated by: Aleks Stockton M.D. on 11/02/2023 at 6:02 Approved by: Aleks Stockton M.D. on 11/02/2023 at 6:05
== END ==
LOC: RAD 14:58
PROVIDERS: PCP Physician Assistant Medical; Referring Provider Podiatrist Foot & Ankle Surgery; Visit Provider Podiatrist Foot & Ankle Surgery
DX: M20.42 Other hammer toe(s) (acquired), left foot (principal)
CPT/HCPCS: 73660

== ENCOUNTER → 2024-08-02 11:06 | Outpatient (CLI) | payer MEDICARE, OTHER, SELFPAY ==
[2023-03-08 15:48] VITALS: BMI 32.5
[2024-08-02 12:00] LABS: Influenza A - CEPHEID Flu A NEGATIVE (NEGATIVE); Influenza B - CEPHEID Flu B NEGATIVE (NEGATIVE); Respiratory Syncytial Virus Negative (Negative)
[2024-08-02 12:01] LABS: COVID-19 CEPHEID 4-PLEX PCR Negative (Negative)
== END ==
PROVIDERS: PCP Physician Assistant Medical; Visit Provider Physician Assistant
DX: R05.9 Cough, unspecified (principal)
CPT/HCPCS: 0241U

== ENCOUNTER → 2024-08-02 11:27 | Outpatient (CLI) | payer MEDICARE, OTHER, SELFPAY ==
[2023-03-08 15:48] VITALS: BMI 32.5
--- NOTE | 2024-08-02 12:38 | DI.RAD.S_ITS ---
PROCEDURE: XR CHEST 2V INDICATIONS: cough w/ phlegm x 2 weeks TECHNIQUE: 2 views of the chest were acquired. COMPARISON: None. FINDINGS AND IMPRESSION: Mild peribronchial thickening possibly viral infection or bronchitis. No airspace consolidation or pleural effusion. Low lung volumes overall. Heart size is at the upper limit of normal. Degenerative osseous changes. Dictated by: Iron Burch M.D. on 08/02/2024 at 13:23 Approved by: Iron Burch M.D. on 08/02/2024 at 13:23
== END ==
PROVIDERS: PCP Physician Assistant Medical; Referring Provider Physician Assistant; Visit Provider Physician Assistant
DX: J06.9 Acute upper respiratory infection, unspecified (principal); R05.9 Cough, unspecified
CPT/HCPCS: 0241U; 71046